=== PATIENT | male | born 1955 | race African-American/Black ===

== ENCOUNTER 2017-07-12 06:14 | Inpatient (IN) | payer MEDICAID, OTHER ==
[2017-07-12] MEDS ORDERED: HYDROMORPHONE HCL INJ/PF 2 MG/ML AMPULE IV ONE (06:31)
--- NOTE | 2017-07-12 06:31 | ER Document Report ---
ED General - General Stated Complaint: DIZZINESS,ABDOMINAL PAIN Notes: 61-year-old male with a history of recurrent pancreatitis presents with 2 days of upper abdominal pain nausea vomiting similar to past pancreatitis, moderately severe, slightly relieved with Zofran from EMS. No bowel movements for "I do not have a long talk." Denies distention. Passing gas. Feels feverish and feels all over body cramping. It is not ripping or tearing does not radiate to back. No chest pain or shortness of breath. TRAVEL OUTSIDE OF THE [place] IN LAST 30 DAYS: No - Related Data Allergies/Adverse Reactions: coffee (Coffea arabica) [Coffee] Allergy (Verified 10/11/14 19:19) Iodinated Contrast- Oral and IV Dye [IV Dye, Iodine Containing] Allergy ( Verified 12/25/14 13:52) iodine [Iodine] Allergy (Verified 10/11/14 19:19) Shellfish * [Shellfish] Allergy (Verified 10/11/14 19:19) Past Medical History - Social History Smoking Status: Current Every Day Smoker Cigarette use (# per day): Yes Smoking Education Provided: Yes - 5 minutes of tobacco cessation counseling was provided. Patient is not mot Family History: Arthritis, CAD - Sister, DM, Hyperlipidemia, Hypertension - Past Medical History Cardiac Medical History: Reports: Hx Coronary Artery Disease, Hx Heart Attack, Hx Hypercholesterolemia, Hx Hypertension Pulmonary Medical History: Reports: Hx COPD Neurological Medical History: Reports: Hx Cerebrovascular Accident. Denies: Hx Seizures Endocrine Medical History: Reports: Hx Diabetes Mellitus Type 1, Hx Diabetes Mellitus Type 2 GI Medical History: Reports: Hx Gastroesophageal Reflux Disease, Hx Hepatitis Musculoskeltal Medical History: Reports Hx Arthritis Psychiatric Medical History: Reports: Hx Anxiety, Hx Bipolar Disorder, Hx Depression Infectious Medical History: Reports: Hx Hepatitis, Hx HIV Past Surgical History: Reports: Hx Abdominal Surgery, Hx Cholecystectomy - Immunizations Immunizations up to date: No Hx Diphtheria, Pertussis, Tetanus Vaccination: Yes Hx Pneumococcal Vaccination: 08/08/12 Review of Systems - Review of Systems Notes: REVIEW OF SYSTEMS GEN: Toes. Weakness. ENT: Denies sore throat, nasal discharge, ear pain EYES: Denies blurry vision, eye pain, discharge CV: Denies chest pain, palpitations, edema RESP: Denies cough, shortness of breath, wheezing GI: Abdominal pain nausea vomiting, decreased bowel movements MSK: Denies joint pain/swelling, edema, SKIN: Denies rash, skin lesions LYMPH: Denies swollen glands/lymph nodes NEURO: Denies headache, focal weakness or numbness, dizziness PSYCH: Denies depression, suicidal or homicidal ideation PHYSICAL EXAMINATION General: No acute distress, well-nourished Head: Atraumatic, normocephalic ENT: Mouth normal, oropharynx moist, no exudates or tonsillar enlargement Eyes: Conjunctiva normal, pupils equal, lids normal Neck: No JVD, supple, no guarding CVS: Normal rate, regular rhythm, no murmurs Resp: No resp distress, equal and normal breath sounds bilaterally GI: Nondistended, soft, no epigastric tenderness to palpation, no rebound or guarding. Cholecystectomy scars. Ext: No deformities, no edema, normal range of motion in upper and lower ext Back: No CVA or midline TTP Skin: No rash, warm Lymphatic: No lymphadeopathy noted Neuro: Awake, alert. Face symmetric. GCS 15. Physical Exam - Vital signs Vitals: Resp 25 H 07/12/17 06:36 Course - Re-evaluation Re-evalutation: 07/12/17 06:32 Patient presents with upper abdominal pain and vomiting similar to prior pancreatitis episodes. Differential includes recurrent pancreatitis, acute flare of chronic abdominal pain, aortic aneurysm, doubt dissection. Also obstruction is on the list. Patient has some mild hypotension likely from dehydration. Bedside ultrasound unable to visualize aorta but no free fluid noted in the abdomen. Plan: Dilaudid fluids labs and CT. 07/12/17 07:33 Pt reassessed, got dilaudid and fluids. BP high 80s, likely dehydration but will cont fluids and will image but manager multimedia't have IV contrast. 07/12/17 08:52 Getting second liter. Requesting pain meds. CT Noncon does not show acute cause of pain. Lipase and chemistry still pending. We will give an additional liter of fluid to resuscitate. 07/12/17 09:10 Pressure improving. Lipase negative the patient has acute kidney injury with a baseline creatinine of less than 1 now close to 3. Potassium is upper limit of normal at 5 but does not require treatment. Admitted, accepted by Dr. Moseley. - Vital Signs Vital signs: Temp Pulse Resp BP Pulse Ox 98.6 F 120 H 18 97/63 L 96 07/12/17 06:53 07/12/17 06:53 07/12/17 07:00 07/12/17 06:53 07/12/17 07:00 - Laboratory Result Diagrams: 07/12/17 06:44 07/12/17 08:21 Laboratory results interpreted by me: 07/12/17 07/12/17 06:44 08:21 WBC 11.6 H MCV 77 L MCH 25.6 L RDW 19.1 H Plt Count 531 H Absolute Neutrophils 8.4 H Chloride 86 L Carbon Dioxide 36 H BUN 41 H Creatinine 3.75 H Est GFR ( Amer) 20 L Est GFR (Non-Af Amer) 16 L - Diagnostic Test Radiology reviewed: Image reviewed, Reports reviewed - EKG Interpretation by Me EKG shows normal: Sinus rhythm Rate: Normal Rhythm: NSR When compared to previous EKG there are: No significant change - borderline long QT Critical Care Note - Critical Care Note Total time excluding time spent on procedures (mins): 35 Comments: The above patient is critically ill. Not including procedures, but including direct re-evaluations, speaking with patient and/or consultants, interpreting results, and documenting, I spent the total amount of minute listed listed above on critical care time Discharge - Discharge Clinical Impression: Acute kidney failure Qualifiers: Acute renal failure type: unspecified Qualified Code(s): N17.9 - Acute kidney failure, unspecified Condition: Fair Disposition: ADMITTED INPATIENT Admitting Provider: Hospitalist
[2017-07-12] MEDS ORDERED: HYDROMORPHONE HCL INJ/PF 2 MG/ML AMPULE ONE (06:32)
[2017-07-12] MEDS ORDERED: ONDANSETRON HCL INJ/PF 4 MG/2 ML SDV ONE (06:44)
[2017-07-12] MEDS ORDERED: ONDANSETRON HCL INJ/PF 4 MG/2 ML SDV IV ONE (06:48)
[2017-07-12] MEDS ORDERED: NORMAL SALINE 1000 ML 1,000 ML IV PRN (06:48)
[2017-07-12 06:55] LABS: ABSOLUTE LYMPHOCYTES (AUTO) 2.1 10^3/uL (0.5-4.7); ABSOLUTE NEUT (AUTO) 8.4 10^3/uL (1.7-8.2); BASOPHILS % (AUTO) 0.3 % (0-2); EOSINOPHILS % (AUTO) 0.1 % (0-6); HEMATOCRIT 40.6 % (37.9-51.0); HEMOGLOBIN 13.5 g/dL (13.5-17.0); HGB HCT DIFFERENCE -0.1; LYMPHOCYTES % (AUTO) 18.2 % (13-45); MEAN CORPUSCULAR HEMOGLOBIN 25.6 pg (27.0-33.4); MEAN CORPUSCULAR HGB CONC 33.4 g/dL (32.0-36.0); MEAN CORPUSCULAR VOLUME 77 fl (80-97); MONOCYTES % (AUTO) 8.6 % (3-13); RED BLOOD COUNT 5.29 10^6/uL (4.35-5.55); RED CELL DISTRIBUTION WIDTH 19.1 % (11.5-14.0); SEGMENTED NEUTROPHILS % (AUTO) 72.8 % (42-78); WHITE BLOOD COUNT 11.6 10^3/uL (4.0-10.5)
[2017-07-12] MEDS ORDERED: NORMAL SALINE 1000 ML 1,000 ML IV ONE (07:33)
--- NOTE | 2017-07-12 07:44 | RADIOLOGY REPORT (SQ) ---
EXAM DESCRIPTION: CHEST SINGLE VIEW CLINICAL HISTORY: 61 years, Male, dizzy hypotensive t/o pna COMPARISON: 10/11/2014. CT, abdomen pelvis May 10, 2015, report only. NUMBER OF VIEWS: One view. Two images. TECHNIQUE: AP portable upright. LIMITATIONS: None. FINDINGS: Moderate-large hiatal hernia, adequate lung volumes, clear parenchyma, atherosclerosis, normal cardiac silhouette size, and mild osteoarthritis. IMPRESSION: No acute cardiopulmonary findings. Moderate hiatal hernia. 2011 [employer]- All Rights Reserved
[2017-07-12] MEDS ORDERED: DIPHENHYDRAMINE HCL 25 MG CAPSULE PO ONE (08:10)
--- NOTE | 2017-07-12 08:23 | RADIOLOGY REPORT (SQ) ---
EXAM DESCRIPTION: CT ABD/PELVIS NO ORAL OR IV COMPLETED DATE/TIME: 07/12/2017 8:00 am REASON FOR STUDY: abd pn, contrast allergy COMPARISON: 05/10/2015. TECHNIQUE: CT scan of the abdomen and pelvis performed without intravenous or oral contrast. Images reviewed with lung, soft tissue, and bone windows. Reconstructed coronal and sagittal MPR images revi ewed. All images stored on PACS. All CT scanners at this facility use dose modulation, iterative reconstruction, and/or weight based d osing when appropriate to reduce radiation dose to as low as reasonably achievable (ALARA). [facility]: Dose Right [facility]: CareDose [facility]: Dose Right [facility]: Teradose 4D [facility]: [employer] RADIATION DOSE: mGy. LIMITATIONS: None. FINDINGS: LOWER CHEST: No significant findings. No nodules or infiltrates. NON-CONTRASTED LIVER, SPLEEN, ADRENALS: Evaluation limited by lack of IV contrast. No identified sign ificant masses. PANCREAS: No masses. No peripancreatic inflammatory changes. GALLBLADDER: Surgically absent. RIGHT KIDNEY AND URETER: No suspicious masses. Assessment limited by lack of IV contrast. No signif icant calcifications. No hydronephrosis or hydroureter. LEFT KIDNEY AND URETER: No suspicious masses. Assessment limited by lack of IV contrast. No signifi cant calcifications. No hydronephrosis or hydroureter. AORTA AND RETROPERITONEUM: No aneurysm. No retroperitoneal masses or adenopathy. BOWEL AND PERITONEAL CAVITY: Large hiatal hernia. Thickening of the wall of the stomach near the fun dus. No obvious masses or inflammatory changes. No free fluid. APPENDIX: Normal. PELVIS, BLADDER, AND ABDOMINAL WALL:No abnormal masses. No free fluid. Bladder normal. BONES: No significant findings. OTHER: No other significant finding. IMPRESSION: 1. LARGE HIATAL HERNIA. THICKENING OF THE WALL OF THE STOMACH NEAR THE FUNDUS, PROBABLY RELATED TO R ELATIVE NONDISTENTION. MUCOSAL MASS CANNOT BE EXCLUDED. 2. NO OTHER SIGNIFICANT OR ACUTE PROCESS IN THE ABDOMEN OR PELVIS. COMMENT: Quality ID # [id number]: Final reports with documentation of one or more dose reduction techniques (e.g., Automated exposure control, adjustment of the mA and/or kV according to patient size, use of iterative reconstruction technique) TECHNICAL DOCUMENTATION: JOB ID: [id number]- All Rights Reserved
[2017-07-12] MEDS ORDERED: FENTANYL CITRATE INJ/PF 100 MCG/2 ML AMPUL IV ONE (08:42)
[2017-07-12 08:50] LABS: ANION GAP 18 (5-19); BLOOD UREA NITROGEN 41 mg/dL (7-20); CALCIUM 8.9 mg/dL (8.4-10.2); CARBON DIOXIDE 36 mmol/L (22-30); CHLORIDE 86 mmol/L (98-107); CREATININE RESULT 3.75 mg/dL (0.52-1.25); GLUCOSE 78 mg/dL (75-110); LIPASE 91.7 U/L (23-300); SODIUM 139.5 mmol/L (137-145)
[2017-07-12 09:42] LABS: APPEARANCE,URINE SLIGHTLY-CLOUDY; BILIRUBIN,URINE NEGATIVE (NEGATIVE); GLUCOSE, URINE 50 mg/dL (NEGATIVE); KETONES,URINE TRACE mg/dL (NEGATIVE); LEUKOCYTE ESTERASE,URINE SMALL (NEGATIVE); NITRITE,URINE NEGATIVE (NEGATIVE); PROTEIN,URINE 100 mg/dL (NEGATIVE); URINE SPECIFIC GRAVITY 1.017
[2017-07-12 09:43] LABS: ALANINE AMINOTRANSFERASE 21 U/L (21-72); ALBUMIN 4.4 g/dL (3.5-5.0); ALKALINE PHOSPHATASE 176 U/L (38-126); ASPARTATE AMINO TRANSFERASE 33 U/L (17-59); BILIRUBIN,DIRECT 0.6 mg/dL (0.0-0.4); BILIRUBIN,TOTAL 0.9 mg/dL (0.2-1.3); TOTAL PROTEIN 8.7 g/dL (6.3-8.2)
[2017-07-12 09:47] LABS: BACTERIA,URINE 1+ /HPF; HYALINE CASTS, URINE TOO NUMEROUS TO CNT /LPF
[2017-07-12] MEDS ORDERED: ONDANSETRON HCL INJ/PF 4 MG/2 ML SDV IV PRN (10:04)
[2017-07-12] MEDS ORDERED: ACETAMINOPHEN 325 MG TABLET PO PRN (10:04)
[2017-07-12 10:42] LABS: AMYLASE 149 U/L (30-110)
[2017-07-12] MEDS ORDERED: POTASSIUM CHLORIDE 10 MEQ TABLET.SA PO SCH (11:00)
[2017-07-12 11:18] LABS: THYROID STIMULATING HORMONE 1.45 uIU/mL (0.47-4.68)
[2017-07-12] MEDS ORDERED: DOCUSATE SODIUM 100 MG CAPSULE PO ONE (11:30)
--- NOTE | 2017-07-12 11:58 | EKG REPORT ---
SEVERITY:- BORDERLINE ECG - SINUS TACHYCARDIA BORDERLINE RIGHT AXIS DEVIATION BORDERLINE PROLONGED QT INTERVAL : Confirmed by: Jena Munoz 12-Jul-2017 11:57:44
[2017-07-12 12:11] LABS: ALANINE AMINOTRANSFERASE 28 U/L (21-72); ALBUMIN 4.3 g/dL (3.5-5.0); ALKALINE PHOSPHATASE 147 U/L (38-126); ASPARTATE AMINO TRANSFERASE 36 U/L (17-59); BILIRUBIN,DIRECT 0.6 mg/dL (0.0-0.4); BILIRUBIN,TOTAL 0.7 mg/dL (0.2-1.3); TOTAL PROTEIN 8.4 g/dL (6.3-8.2)
--- NOTE | 2017-07-12 13:46 | PDOC CONSULTATION ---
Consultation Consult Date: 07/12/17 Attending physician:: CATHERINE MAR Consult reason:: abnormal CT scan, epigastric pain. history of pancreatitis History of Present Illness Admission Date/PCP: 07/12/17 10:28 History of Present Illness: OLGA JONES is a 61 year old male Asked to see this patient by the Hospitalist physician patient admitted for epigastric pain states that has had a history of pancreatitis patient had CT scan, it was noted that he had an abnormal thickening of the stomach GI is requested to clarify the finding patient will need EGD to be done there is no current nausea or vomiting patient does not have significant LFT abnormalities suggesting gallstone pancreatitis. there is no melena patient has been having difficult time with constipation, he does not have any peritoneal signs Past Medical History Cardiac Medical History: Reports: Coronary Artery Disease, Myocardial Infarction , Hyperlipidema, Hypertension Pulmonary Medical History: Reports: Chronic Obstructive Pulmonary Disease (COPD) Neurological Medical History: Denies: Seizures Endocrine Medical History: Reports: Diabetes Mellitus Type 1, Diabetes Mellitus Type 2 GI Medical History: Reports: Gastroesophageal Reflux Disease, Hepatitis Musculoskeltal Medical History: Reports: Arthritis Psychiatric Medical History: Reports: Bipolar Disorder, Depression Infectious Medical History: Reports: HIV Past Surgical History Past Surgical History: Reports: Cholecystectomy Social History Smoking Status: Current Every Day Smoker Frequency of Alcohol Use: Heavy Hx Recreational Drug Use: Yes Drugs: Cocaine, Marijuana, Other Hx Prescription Drug Abuse: Yes Family History Family History: Arthritis, CAD - Sister, DM, Hyperlipidemia, Hypertension Parental Family History Reviewed: Yes Children Family History Reviewed: Unknown Sibling(s) Family History Reviewed.: Unknown Medication/Allergy Allergies/Adverse Reactions: coffee (Coffea arabica) [Coffee] Allergy (Verified 10/11/14 19:19) Iodinated Contrast- Oral and IV Dye [IV Dye, Iodine Containing] Allergy ( Verified 12/25/14 13:52) iodine [Iodine] Allergy (Verified 10/11/14 19:19) Shellfish * [Shellfish] Allergy (Verified 10/11/14 19:19) Review of Systems Constitutional: ABSENT: fever(s), headache(s), night sweats, weakness Eyes: ABSENT: visual disturbances Ears: ABSENT: hearing changes Nose, Mouth, and Throat: ABSENT: mouth pain, sore throat Cardiovascular: ABSENT: chest pain, edema, orthropnea Respiratory: ABSENT: dyspnea, hemoptysis Gastrointestinal: ABSENT: diarrhea, hematemesis, hematochezia Genitourinary: ABSENT: dysuria, hematuria Musculoskeletal: ABSENT: deformity, joint swelling Integumentary: ABSENT: lesions, pruritus Neurological: ABSENT: syncope, tingling, tremor(s), vertigo Endocrine: ABSENT: polydipsia, polyphagia, polyuria Hematologic/Lymphatic: ABSENT: easy bruising Physical Exam Vital Signs: Temp Pulse Resp BP Pulse Ox 98.6 F 120 H 10 L 120/71 100 07/12/17 06:53 07/12/17 06:53 07/12/17 13:30 07/12/17 13:30 07/12/17 13:30 Intake & Output 07/11/17 07/12/17 07/13/17 06:59 06:59 06:59 Weight 63.503 kg General appearance: PRESENT: no acute distress, well-developed, well-nourished Head exam: PRESENT: atraumatic, normocephalic Eye exam: PRESENT: EOMI, PERRLA. ABSENT: nystagmus, periorbital swelling, scleral icterus Mouth exam: PRESENT: moist, neck supple Throat exam: ABSENT: tonsillar exudate, tonsillogmegaly Neck exam: ABSENT: meningismus, tenderness, thyromegaly Respiratory exam: PRESENT: symmetrical, unlabored. ABSENT: tachypnea, wheezes Cardiovascular exam: PRESENT: RRR, +S1, +S2 GI/Abdominal exam: PRESENT: soft. ABSENT: rebound, rigid, tenderness Extremities exam: PRESENT: full ROM. ABSENT: calf tenderness, clubbing Neurological exam: PRESENT: alert, altered, oriented to time, oriented to situation, CN II-XII grossly intact Skin exam: PRESENT: normal color. ABSENT: mottled, pallor, urticaria, vesicles Results Laboratory Results: 07/12/17 07/12/17 07/12/17 11:38 11:38 11:38 Lactic Acid Cancelled 2.6 H Total Bilirubin 0.7 AST 36 ALT 28 Alkaline Phosphatase 147 H Total Protein 8.4 H Albumin 4.3 Impressions: Chest X-Ray 07/12/17 06:22 IMPRESSION: No acute cardiopulmonary findings. Moderate hiatal hernia. 2010 [employer]- All Rights Reserved Abdomen/Pelvis CT 07/12/17 07:34 IMPRESSION: 1. LARGE HIATAL HERNIA. THICKENING OF THE WALL OF THE STOMACH NEAR THE FUNDUS, PROBABLY RELATED TO RELATIVE NONDISTENTION. MUCOSAL MASS CANNOT BE EXCLUDED. 2. NO OTHER SIGNIFICANT OR ACUTE PROCESS IN THE ABDOMEN OR PELVIS. Assessment & Plan - Diagnosis (1) Abnormal CT scan Plan: thickening noted in the wall of the stomach will need EGD Risks, benefits and alternatives are discussed with the patient in detail further recommendations to follow (2) Abdominal pain Plan: could be due to peptic ulcer disease vs possible pancreatitis patient will have EGD to exclude other causes (3) Pancreatitis Plan: can keep NPO for now and have pain control if having symptoms of diarrhea, then patient may benefit from pancreatic supplementation - Time Time Spent: 50 to 70 Minutes
[2017-07-12] MEDS ORDERED: (PENDING PHARMACY ID) (Lipase/Protease/Amylase [Creon Dr 24,000 Units Capsule] 1 CAP) PO SCH (14:00)
[2017-07-12] MEDS: GABAPENTIN 400 MG CAPSULE PO SCH ×2 (14:08→22:45)
[2017-07-12] MEDS: LANSOPRAZOLE 30 MG TAB.RAP.DR PO SCH (16:03)
[2017-07-12] MEDS: NORMAL SALINE 1000 ML 1,000 ML IV PRN (16:04)
[2017-07-12] MEDS: DOCUSATE SODIUM 100 MG CAPSULE PO SCH (18:38)
--- NOTE | 2017-07-12 19:00 | PDOC H&P ---
History of Present Illness Admission Date/PCP: 07/12/17 10:28 Patient complains of: Nausea vomiting and abdominal pain History of Present Illness: The patient is a pleasant 61-year-old -[place] male with a history of recurrent chronic pancreatitis. In addition he has known coronary artery disease, COPD, history of a CVA a and reportedly has hepatitis C and is undergone treatment for this. He has underlying bipolar disorder as well. Patient presented to the emergency room with a 3 day history of nausea vomiting and abdominal pain. He states he became quite dehydrated and dizzy. He also has had increased shortness of breath and burning in his chest. He states that he has been losing weight for the past several months and reports that he has lost approximately 30 pounds and has been having night sweats at night. Past Medical History Cardiac Medical History: Reports: Coronary Artery Disease, Myocardial Infarction , Hyperlipidema, Hypertension Pulmonary Medical History: Reports: Chronic Obstructive Pulmonary Disease (COPD) Neurological Medical History: Reports: Ischemic CVA Denies: Seizures Malignancy Medical History: Reports: None GI Medical History: Reports: Gastroesophageal Reflux Disease, Hepatitis, Other - He states he has a history of hepatitis C Musculoskeltal Medical History: Reports: Arthritis Psychiatric Medical History: Reports: Bipolar Disorder, Depression Traumatic Medical History: Reports: None Hematology: Reports: None Infectious Medical History: Reports: Hepatitis C Past Surgical History Past Surgical History: Reports: Cholecystectomy Social History Information Source: Patient Smoking Status: Current Every Day Smoker Cigarettes Packs Per Day: 1 Number of Years Smokin Frequency of Alcohol Use: Occasional Hx Recreational Drug Use: Yes Drugs: Cocaine, Heroin, Marijuana, Other Hx Prescription Drug Abuse: Yes Family History Family History: Arthritis, CAD - Sister, DM, Hyperlipidemia, Hypertension Parental Family History Reviewed: Yes Children Family History Reviewed: Yes Sibling(s) Family History Reviewed.: Yes Medication/Allergy Home Medications: Amitriptyline HCl [Elavil 50 mg Tablet] 50 mg PO DAILY 07/12/17 Gabapentin [Neurontin 400 mg Capsule] 800 mg PO Q8 07/12/17 Lactobacillus Acidophilus [Acidophilus] 1 tab PO Q12 07/12/17 Lipase/Protease/Amylase [Elisabeth Dr 24,000 Units Capsule] 1 cap PO Q8 07/12/17 Lisinopril [Zestril] 20 mg PO DAILY 07/12/17 Magnesium Oxide [Mag-Ox 400 mg Tablet] 400 mg PO DAILY 07/12/17 Omeprazole 20 mg PO Q12 07/12/17 Potassium Chloride [Klor-Con 10 Meq Tablet.sa] 20 meq PO Q12 07/12/17 Quetiapine Fumarate [Seroquel] 200 mg PO QHS 07/12/17 Sildenafil Citrate [Viagra] 100 mg PO ASDIR PRN 07/12/17 Thiamine HCl [Thiamine 100 mg Tablet] 100 mg PO DAILY 07/12/17 Allergies/Adverse Reactions: coffee (Coffea arabica) [Coffee] Allergy (Verified 10/11/14 19:19) Iodinated Contrast- Oral and IV Dye [IV Dye, Iodine Containing] Allergy ( Verified 12/25/14 13:52) iodine [Iodine] Allergy (Verified 10/11/14 19:19) Shellfish * [Shellfish] Allergy (Verified 10/11/14 19:19) Review of Systems Constitutional: PRESENT: anorexia, night sweats, weight loss Cardiovascular: PRESENT: chest pain Respiratory: PRESENT: cough, dyspnea, sputum Gastrointestinal: PRESENT: abdominal pain, heartburn, nausea, vomiting. ABSENT : hematemesis, hematochezia, melena Musculoskeletal: PRESENT: back pain Integumentary: ABSENT: rash, wounds Neurological: ABSENT: abnormal gait, abnormal speech, confusion, dizziness, focal weakness, syncope Psychiatric: ABSENT: anxiety, depression, homidical ideation, suicidal ideation Endocrine: ABSENT: cold intolerance, heat intolerance, polydipsia, polyuria Hematologic/Lymphatic: ABSENT: easy bleeding, easy bruising Physical Exam Vital Signs: Temp Pulse Resp BP Pulse Ox 98.6 F 120 H 10 L 120/71 100 07/12/17 06:53 07/12/17 06:53 07/12/17 13:30 07/12/17 13:30 07/12/17 13:30 Intake & Output 07/11/17 07/12/17 07/13/17 06:59 06:59 06:59 Weight 63.503 kg General appearance: PRESENT: no acute distress, disheveled, thin Head exam: PRESENT: atraumatic, normocephalic Eye exam: PRESENT: conjunctiva pink, EOMI, PERRLA. ABSENT: scleral icterus Ear exam: PRESENT: normal external ear exam Mouth exam: PRESENT: moist, tongue midline Neck exam: ABSENT: carotid bruit, JVD, lymphadenopathy, thyromegaly Respiratory exam: PRESENT: decreased breath sounds, rhonchi. ABSENT: accessory muscle use, chest wall tenderness Cardiovascular exam: PRESENT: RRR. ABSENT: diastolic murmur, rubs, systolic murmur GI/Abdominal exam: PRESENT: firm, hypoactive bowel sounds, tenderness Rectal exam: PRESENT: deferred Extremities exam: PRESENT: full ROM. ABSENT: calf tenderness, clubbing, pedal edema Neurological exam: PRESENT: alert, awake, oriented to person, oriented to place , oriented to time, oriented to situation, CN II-XII grossly intact. ABSENT: motor sensory deficit Psychiatric exam: PRESENT: appropriate affect, normal mood. ABSENT: homicidal ideation, suicidal ideation Skin exam: PRESENT: dry, intact, warm. ABSENT: cyanosis, rash Results Laboratory Results: 07/12/17 07/12/17 07/12/17 11:38 11:38 11:38 Lactic Acid Cancelled 2.6 H Total Bilirubin 0.7 AST 36 ALT 28 Alkaline Phosphatase 147 H Total Protein 8.4 H Albumin 4.3 07/12/17 16:15 Lactic Acid 1.4 Total Bilirubin AST ALT Alkaline Phosphatase Total Protein Albumin Impressions: Chest X-Ray 07/12/17 06:22 IMPRESSION: No acute cardiopulmonary findings. Moderate hiatal hernia. 2010 [employer]- All Rights Reserved Abdomen/Pelvis CT 07/12/17 07:34 IMPRESSION: 1. LARGE HIATAL HERNIA. THICKENING OF THE WALL OF THE STOMACH NEAR THE FUNDUS, PROBABLY RELATED TO RELATIVE NONDISTENTION. MUCOSAL MASS CANNOT BE EXCLUDED. 2. NO OTHER SIGNIFICANT OR ACUTE PROCESS IN THE ABDOMEN OR PELVIS. Assessment & Plan - Diagnosis (1) Acute kidney injury Plan: At this point I suspect this is secondary to dehydration from his nausea and vomiting. Patient has been started on IV fluids and we will continue them overnight. Chemistry panel will be checked in the morning. (2) Abdominal pain Plan: With associated nausea vomiting and diarrhea. I am going to consult the GI service. There was some thickening of the stomach noted on his CT scan. No evidence for acute pancreatitis. His lipase level is normal. Pancreas was not inflamed on his scan. We will await further recommendations from the GI service. (3) Metabolic alkalosis Plan: Of undetermined significance at this point. He will have a chemistry panel drawn in the morning (4) Chronic pancreatitis Plan: I do not think he is having an acute attack of pancreatitis at this point. We will get GI to see the patient. (5) SIRS (systemic inflammatory response syndrome) Plan: He does not appear to have an underlying infection. We will check labs in the morning and continue to monitor him closely overnight. (6) COPD (chronic obstructive pulmonary disease) Plan: No evidence of exacerbation (7) CAD (coronary artery disease) Plan: Continue his home regimen of medications. [facility] (8) Hypertension Plan: We will just continue to monitor. (9) History of hepatitis C Plan: The patient states that he has a history of hepatitis C which was treated. I am unsure how accurate this is. GI is following and we will let them decide on whether hepatitis panel is needed. (10) History of CVA (cerebrovascular accident) Plan: The patient reports that he has a history of a CVA. Currently not on antiplatelet therapy likely due to his GI issues. (11) GERD (gastroesophageal reflux disease) Plan: The patient will be started on Prevacid twice daily - Time Time Spent: 50 to 70 Minutes - Inpatient Certification Based on my medical assessment, after consideration of the patient's comorbidities, presenting symptoms, or acuity I expect that the services needed warrant INPATIENT care.: Yes I certify that my determination is in accordance with my understanding of Medicare's requirements for reasonable and necessary INPATIENT services [42 CFR 412.3e].: Yes Medical Necessity: Need For IV Fluids, Other - Inpatient hospitalization is necessary. I expect this patient's hospitalization will last for greater than 2 midnights. He has acute renal failure requiring parenteral fluids. He has abdominal pain and needs further evaluation from the GI service. He has multiple comorbidities and I expect that he will need at least 2 midnights in the hospital.
[2017-07-12] MEDS ORDERED: (PENDING PHARMACY ID) (Lactobacillus Acidophilus [Acidophilus] 1 TAB) PO SCH (22:00)
[2017-07-12] MEDS ORDERED: (PENDING PHARMACY ID) (Quetiapine Fumarate [Seroquel] 200 MG) PO SCH (22:00)
[2017-07-12] MEDS: QUETIAPINE FUMARATE 100 MG TABLET PO SCH (22:46)
[2017-07-12] MEDS: LACTOBACILLUS ACIDOPHILUS 250 MG TAB PO SCH (22:47)
[2017-07-13] MEDS: NORMAL SALINE 1000 ML 1,000 ML IV PRN ×2 (03:48→19:44)
[2017-07-13] MEDS: LANSOPRAZOLE 30 MG TAB.RAP.DR PO SCH ×3 (05:55→16:46)
[2017-07-13] MEDS: GABAPENTIN 400 MG CAPSULE PO SCH ×3 (05:55→21:16)
[2017-07-13 08:15] LABS: ABSOLUTE LYMPHOCYTES (AUTO) 1.6 10^3/uL (0.5-4.7); ABSOLUTE MONOCYTES (AUTO) 0.6 10^3/uL (0.1-1.4); ABSOLUTE NEUT (AUTO) 4.2 10^3/uL (1.7-8.2); BASOPHILS % (AUTO) 0.2 % (0-2); EOSINOPHILS % (AUTO) 0.1 % (0-6); HEMATOCRIT 30.4 % (37.9-51.0); HGB HCT DIFFERENCE -0.4; MEAN CORPUSCULAR HEMOGLOBIN 25.6 pg (27.0-33.4); MEAN CORPUSCULAR HGB CONC 33.1 g/dL (32.0-36.0); MEAN CORPUSCULAR VOLUME 78 fl (80-97); MONOCYTES % (AUTO) 9.4 % (3-13); RED BLOOD COUNT 3.92 10^6/uL (4.35-5.55); RED CELL DISTRIBUTION WIDTH 18.5 % (11.5-14.0); SEGMENTED NEUTROPHILS % (AUTO) 65.3 % (42-78); WHITE BLOOD COUNT 6.5 10^3/uL (4.0-10.5)
[2017-07-13 08:27] LABS: ANION GAP 14 (5-19); BLOOD UREA NITROGEN 34 mg/dL (7-20); CALCIUM 8.3 mg/dL (8.4-10.2); CARBON DIOXIDE 29 mmol/L (22-30); CHLORIDE 93 mmol/L (98-107); CHOLESTEROL 157.51 mg/dL (0-200); CREATININE RESULT 2.45 mg/dL (0.52-1.25); Direct HDL 32 mg/dL (>40); GLUCOSE 65 mg/dL (75-110); MAGNESIUM 2.1 mg/dL (1.6-2.3); PHOSPHORUS 3.2 mg/dL (2.5-4.5); POTASSIUM 4.1 mmol/L (3.6-5.0); SODIUM 135.6 mmol/L (137-145); TRIGLYCERIDES 122 mg/dL (<150)
[2017-07-13] MEDS ORDERED: MIDAZOLAM 2 MG/2 ML INJ ONE (08:37)
[2017-07-13] MEDS ORDERED: ONDANSETRON HCL INJ/PF 4 MG/2 ML SDV ONE (08:37)
[2017-07-13] MEDS ORDERED: PROPOFOL INJ 200 MG/20 ML VIAL IV ONE (08:37)
[2017-07-13 08:38] LABS: DIRECT LDL 97 mg/dL (<100)
[2017-07-13] MEDS ORDERED: FENTANYL CITRATE INJ/PF 100 MCG/2 ML AMPUL IV PRN ×3 (09:19)
[2017-07-13] MEDS ORDERED: DIPHENHYDRAMINE HCL 50 MG/ML VIAL IV PRN (09:19)
[2017-07-13] MEDS ORDERED: QUETIAPINE FUMARATE 100 MG PO SCH (10:00)
[2017-07-13] MEDS ORDERED: MAGNESIUM PO SCH (10:00)
[2017-07-13] MEDS ORDERED: THIAMINE HCL 100 MG TABLET PO SCH (10:00)
[2017-07-13] MEDS ORDERED: MAGNESIUM OXIDE PO SCH (10:00)
[2017-07-13] MEDS: MAGNESIUM OXIDE 400 MG TABLET PO SCH (11:49)
[2017-07-13] MEDS: LACTOBACILLUS ACIDOPHILUS 250 MG TAB PO SCH ×2 (11:49→21:16)
[2017-07-13] MEDS: ENOXAPARIN SODIUM INJ 30 MG/0.3 ML DISP.SYRIN SUBCUT SCH (11:49)
[2017-07-13] MEDS: DOCUSATE SODIUM 100 MG CAPSULE PO SCH ×2 (11:50→19:15)
[2017-07-13] MEDS: AMITRIPTYLINE HCL 50 MG TABLET PO SCH (11:50)
[2017-07-13] MEDS: LIPASE/PROTEASE/AMYLASE 1 CAP CAPSULE.DR PO SCH ×6 (12:01→16:47)
[2017-07-13] MEDS: THIAMINE HCL 100 MG TABLET PO SCH (12:01)
--- NOTE | 2017-07-13 13:05 | Operative Report ---
Operative Report DATE OF SURGERY: 07/13/17 Operative Report: The risks benefits and alternatives of the procedure explained to the patient in detail and informed consent is obtained.A GIF Olympus video scope was inserted into the patient's mouth and hypopharynx, the esophagus is identified intubated and insufflated, the scope was then advanced through the esophagus stomach and duodenum, retroflexion maneuver is done ,the esophagus stomach and first and second portions of the duodenum examined PREOPERATIVE DIAGNOSIS: Epigastric pain, abnormal CT scan of the stomach showing thickening in the region of the fundus. POSTOPERATIVE DIAGNOSIS: Esophageal ulcers at the distal esophagus, there is also abnormal tissue biopsies obtained to rule out malignancy. Hiatal hernia. The area of thickening is noted in the stomach status post biopsy rule out malignancy OPERATION: EGD with biopsy SURGEON: CATHERINE MAR ANESTHESIA: LMAC TISSUE REMOVED OR ALTERED: As noted above. COMPLICATIONS: None. ESTIMATED BLOOD LOSS: None. INTRAOPERATIVE FINDINGS: As noted above. PROCEDURE: Patient tolerated the procedure well. No immediate postprocedure complications are noted. Patient discharged from PACU in stable condition. Resume regular diet as tolerated on the floor. Resume previous activity level. Follow-up as outpatient. Repeat EGD is indicated. We will wait on pathology.
[2017-07-13] MEDS ORDERED: PHENYLEPHRINE HCL INJ/PF 10 MG/1 ML SDV ONE (13:33)
[2017-07-13] MEDS ORDERED: METOPROLOL TARTRATE PF/INJ 5 MG/5 ML SDV IV ONE (15:30)
[2017-07-13] MEDS ORDERED: TRAMADOL HCL 50 MG TABLET PO PRN (17:36)
--- NOTE | 2017-07-13 17:43 | PDOC PROGRESS REPORT ---
Subjective Progress Note for:: 07/13/17 Subjective:: The patient is resting in his bed. He had an EGD performed today by the GI service. He was found to have gastritis and esophagitis as well as a small hiatal hernia. All of this was explained to the patient and his questions were answered. He states that he continues to have abdominal pain. He states it is the same type of pain he has when he has pancreatitis. He states overall he is feeling much better since he is coming to the hospital. He is having no further episodes of nausea or vomiting. No diarrhea. He has no chest pain or shortness of breath at this point. No urinary complaints Reason For Visit: ACUTE RENAL FAILURE Physical Exam Vital Signs: Temp Pulse Resp BP Pulse Ox 99.4 F 112 H 18 111/50 L 99 07/13/17 13:10 07/13/17 13:10 07/13/17 13:10 07/13/17 13:10 07/13/17 13:10 Intake & Output 07/12/17 07/13/17 07/14/17 06:59 06:59 06:59 Intake Total 1500 3762 Output Total 200 400 Balance 1300 3362 Weight 71.1 kg General appearance: PRESENT: no acute distress, disheveled, thin Head exam: PRESENT: atraumatic, normocephalic Respiratory exam: PRESENT: clear to auscultation belén. ABSENT: rales, rhonchi, wheezes Cardiovascular exam: PRESENT: RRR. ABSENT: diastolic murmur, rubs, systolic murmur GI/Abdominal exam: PRESENT: guarding, tenderness, other - He has mild tenderness with some guarding diffusely. Rectal exam: PRESENT: deferred Extremities exam: PRESENT: full ROM. ABSENT: calf tenderness, clubbing, pedal edema Neurological exam: PRESENT: alert, awake, oriented to person, oriented to place , oriented to time, oriented to situation, CN II-XII grossly intact. ABSENT: motor sensory deficit Psychiatric exam: PRESENT: other - Quite animated with pressured speech Focused psych exam: PRESENT: flight of ideas, pressured speech Skin exam: PRESENT: dry, intact, warm. ABSENT: cyanosis, rash Results Laboratory Results: 07/13/17 06:56 07/13/17 06:56 07/13/17 07/13/17 06:56 06:56 WBC 6.5 RBC 3.92 L Hgb 10.0 L D Hct 30.4 L MCV 78 L MCH 25.6 L MCHC 33.1 RDW 18.5 H Plt Count 314 Seg Neutrophils % 65.3 Lymphocytes % 25.0 Monocytes % 9.4 Eosinophils % 0.1 Basophils % 0.2 Absolute Neutrophils 4.2 Absolute Lymphocytes 1.6 Absolute Monocytes 0.6 Absolute Eosinophils 0.0 Absolute Basophils 0.0 Sodium 135.6 L Potassium 4.1 Chloride 93 L Carbon Dioxide 29 Anion Gap 14 BUN 34 H Creatinine 2.45 H Est GFR ( Amer) 32 L Est GFR (Non-Af Amer) 27 L Glucose 65 L Calcium 8.3 L Phosphorus 3.2 Magnesium 2.1 Triglycerides 122 Cholesterol 157.51 LDL Cholesterol Direct 97 VLDL Cholesterol 24.0 HDL Cholesterol 32 L Impressions: Chest X-Ray 07/12/17 06:22 IMPRESSION: No acute cardiopulmonary findings. Moderate hiatal hernia. 2010 [employer]- All Rights Reserved Abdomen/Pelvis CT 07/12/17 07:34 IMPRESSION: 1. LARGE HIATAL HERNIA. THICKENING OF THE WALL OF THE STOMACH NEAR THE FUNDUS, PROBABLY RELATED TO RELATIVE NONDISTENTION. MUCOSAL MASS CANNOT BE EXCLUDED. 2. NO OTHER SIGNIFICANT OR ACUTE PROCESS IN THE ABDOMEN OR PELVIS. Assessment & Plan - Diagnosis (1) Acute kidney injury Plan: Likely secondary to dehydration from nausea and vomiting. His creatinine is improved today. We will continue IV fluid hydration. (2) Abdominal pain Plan: Possibly secondary to his chronic pancreatitis. CT scan of the abdomen revealed a thickened stomach. He had an EGD today that did not reveal any acute abnormalities. His lipase level was normal. Amylase level was slightly elevated. He will continue IV fluids. He was requesting IV morphine for his pain. 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 I am going to give him some tramadol this afternoon. (3) Metabolic alkalosis Plan: Resolved (4) Chronic pancreatitis Plan: I do not think he is having an acute attack of pancreatitis at this point. He may be having some pain from his chronic pancreatitis.. (5) SIRS (systemic inflammatory response syndrome) Plan: He does not appear to have an underlying infection. We will check labs in the morning and continue to monitor him closely overnight. Overall he is stabilizing. (6) COPD (chronic obstructive pulmonary disease) Plan: No evidence of exacerbation (7) CAD (coronary artery disease) Plan: Continue his home regimen of medications. [facility] (8) Hypertension Plan: We will just continue to monitor. (9) History of hepatitis C Plan: The patient states that he has a history of hepatitis C which was treated. I am unsure how accurate this is. GI is following and we will let them decide on whether hepatitis panel is needed. (10) History of CVA (cerebrovascular accident) Plan: The patient reports that he has a history of a CVA. Currently not on antiplatelet therapy likely due to his GI issues. (11) GERD (gastroesophageal reflux disease) Plan: The patient will be started on Prevacid twice daily - Time Time Spent with patient: 25-34 minutes - Inpatient Certification Based on my medical assessment, after consideration of the patient's comorbidities, presenting symptoms, or acuity I expect that the services needed warrant INPATIENT care.: Yes I certify that my determination is in accordance with my understanding of Medicare's requirements for reasonable and necessary INPATIENT services [42 CFR 412.3e].: Yes Medical Necessity: Need For IV Fluids - Inpatient hospitalization remains necessary. Patient still has acute renal failure requiring parenteral fluids. Timing of disposition will be determined by his clinical course.
[2017-07-13] MEDS: QUETIAPINE FUMARATE 100 MG TABLET PO SCH (21:16)
[2017-07-14] MEDS: GABAPENTIN 400 MG CAPSULE PO SCH ×3 (05:21→21:17)
[2017-07-14] MEDS: NORMAL SALINE 1000 ML 1,000 ML IV PRN ×2 (05:22→11:06)
[2017-07-14 05:38] LABS: ABSOLUTE EOSINOPHILS # (AUTO) 0.1 10^3/uL (0.0-0.6); ABSOLUTE LYMPHOCYTES (AUTO) 1.6 10^3/uL (0.5-4.7); ABSOLUTE MONOCYTES (AUTO) 0.5 10^3/uL (0.1-1.4); ABSOLUTE NEUT (AUTO) 2.2 10^3/uL (1.7-8.2); BASOPHILS % (AUTO) 0.8 % (0-2); EOSINOPHILS % (AUTO) 1.8 % (0-6); HEMATOCRIT 32.2 % (37.9-51.0); HEMOGLOBIN 10.3 g/dL (13.5-17.0); HGB HCT DIFFERENCE -1.3; LYMPHOCYTES % (AUTO) 36.3 % (13-45); MEAN CORPUSCULAR HEMOGLOBIN 25.4 pg (27.0-33.4); MEAN CORPUSCULAR HGB CONC 32.1 g/dL (32.0-36.0); MEAN CORPUSCULAR VOLUME 79 fl (80-97); MONOCYTES % (AUTO) 10.6 % (3-13); RED BLOOD COUNT 4.07 10^6/uL (4.35-5.55); RED CELL DISTRIBUTION WIDTH 18.7 % (11.5-14.0); SEGMENTED NEUTROPHILS % (AUTO) 50.5 % (42-78); WHITE BLOOD COUNT 4.4 10^3/uL (4.0-10.5)
[2017-07-14 05:52] LABS: ANION GAP 11 (5-19); BLOOD UREA NITROGEN 22 mg/dL (7-20); CALCIUM 9.2 mg/dL (8.4-10.2); CARBON DIOXIDE 27 mmol/L (22-30); CHLORIDE 102 mmol/L (98-107); GLUCOSE 94 mg/dL (75-110); MAGNESIUM 2.1 mg/dL (1.6-2.3); PHOSPHORUS 2.8 mg/dL (2.5-4.5); POTASSIUM 4.1 mmol/L (3.6-5.0); SODIUM 140.1 mmol/L (137-145)
[2017-07-14] MEDS: LIPASE/PROTEASE/AMYLASE 1 CAP CAPSULE.DR PO SCH ×9 (08:24→16:05)
[2017-07-14] MEDS: MAGNESIUM OXIDE 400 MG TABLET PO SCH (11:05)
[2017-07-14] MEDS: ENOXAPARIN SODIUM INJ 30 MG/0.3 ML DISP.SYRIN SUBCUT SCH (11:05)
[2017-07-14] MEDS: AMITRIPTYLINE HCL 50 MG TABLET PO SCH (11:06)
[2017-07-14] MEDS: LACTOBACILLUS ACIDOPHILUS 250 MG TAB PO SCH ×2 (11:06→21:17)
[2017-07-14] MEDS: THIAMINE HCL 100 MG TABLET PO SCH (11:06)
[2017-07-14] MEDS: DOCUSATE SODIUM 100 MG CAPSULE PO SCH ×2 (11:06→17:18)
--- NOTE | 2017-07-14 12:04 | Physician Advisory Note ---
Physician Advisor ProgressNote .: Pursuant to the [facility], I have reviewed the medical record for this patient. Physician Advisor Statement: Please consider documentin. "Possible Chronic hep C", vs "possible past acute Hep C, cleared" - if it is possible to find out if he has had confirmatory hep C viral load testing (+) or (-) ..... 2. When documenting SIRS, please always state the most likely cause. We can always state later that "SIRS was ruled out". If sepsis is possible, state likely cause & the supporting evidence for the dx. We can always state later that "sepsis was ruled out". - In this case, pt had tachycardia & tachypnea but no fever and no WBC >12K that this reviewer can find. Therefore, pt does not appear to meet criteria for SIRS this visit (must have either temp or WBC criteria (+), not just tachycardia/tachypnea). - Pt did have JARAD (this would support possible sepsis if felt to be due to sepsis rather than due to dehydration), MAPs in the 60s at times (again, due to sepsis?, or due to volume depletion/other cause?), & lactate 2.6 initially (due to sepsis, or due to liver dz or mesenteric ischemia?). Thanks! CK
--- NOTE | 2017-07-14 14:50 | PDOC PROGRESS REPORT ---
Subjective Progress Note for:: 07/14/17 Subjective:: Patient underwent upper endoscopy and biopsies are back. There does appear to be fungal elements and will need to be treated. Biopsies do not show any Helicobacter pylori However there is reactive squamous mucosa noted He will need to be treated with antifungals as well as PPI Repeat scope, EGD in about 4-6 weeks if he is able to come back. Obviously the concern is for possible malignancy. This was stressed to the patient. Otherwise no other significant findings noted on upper endoscopy. The gastric biopsy is noted to be nonmalignant. Reason For Visit: ACUTE RENAL FAILURE Physical Exam Vital Signs: Temp Pulse Resp BP Pulse Ox 98 F 99 16 147/81 H 100 07/14/17 12:00 07/14/17 12:00 07/14/17 12:00 07/14/17 12:00 07/14/17 12:00 Intake & Output 07/13/17 07/14/17 07/15/17 06:59 06:59 06:59 Intake Total 1500 5842 Output Total 200 400 Balance 1300 5442 Weight 71.1 kg 71 kg General appearance: PRESENT: no acute distress, well-developed, well-nourished Head exam: PRESENT: atraumatic, normocephalic Eye exam: PRESENT: EOMI, PERRLA. ABSENT: nystagmus, periorbital swelling, scleral icterus Mouth exam: PRESENT: moist Throat exam: ABSENT: tonsillar exudate, tonsillogmegaly Neck exam: ABSENT: meningismus, tenderness, thyromegaly Respiratory exam: PRESENT: symmetrical, unlabored. ABSENT: tachypnea, wheezes Cardiovascular exam: PRESENT: RRR, +S1, +S2 GI/Abdominal exam: PRESENT: soft. ABSENT: rebound, rigid, tenderness Extremities exam: ABSENT: joint swelling Musculoskeletal exam: PRESENT: full ROM Neurological exam: PRESENT: oriented to time, oriented to situation, reflexes normal, CN II-XII grossly intact Skin exam: PRESENT: normal color. ABSENT: mottled, pallor, petechiae, urticaria , vesicles Results Laboratory Results: 07/14/17 05:03 07/14/17 05:03 07/14/17 07/14/17 05:03 05:03 WBC 4.4 RBC 4.07 L Hgb 10.3 L Hct 32.2 L MCV 79 L MCH 25.4 L MCHC 32.1 RDW 18.7 H Plt Count 311 Seg Neutrophils % 50.5 Lymphocytes % 36.3 Monocytes % 10.6 Eosinophils % 1.8 Basophils % 0.8 Absolute Neutrophils 2.2 Absolute Lymphocytes 1.6 Absolute Monocytes 0.5 Absolute Eosinophils 0.1 Absolute Basophils 0.0 Sodium 140.1 Potassium 4.1 Chloride 102 Carbon Dioxide 27 Anion Gap 11 BUN 22 H Creatinine 1.60 H Est GFR ( Amer) 53 L Est GFR (Non-Af Amer) 44 L Glucose 94 Calcium 9.2 Phosphorus 2.8 Magnesium 2.1 Impressions: Chest X-Ray 07/12/17 06:22 IMPRESSION: No acute cardiopulmonary findings. Moderate hiatal hernia. 2010 [employer]- All Rights Reserved Abdomen/Pelvis CT 07/12/17 07:34 IMPRESSION: 1. LARGE HIATAL HERNIA. THICKENING OF THE WALL OF THE STOMACH NEAR THE FUNDUS, PROBABLY RELATED TO RELATIVE NONDISTENTION. MUCOSAL MASS CANNOT BE EXCLUDED. 2. NO OTHER SIGNIFICANT OR ACUTE PROCESS IN THE ABDOMEN OR PELVIS. 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 - Time Time Spent with patient: 15-24 minutes
--- NOTE | 2017-07-14 15:47 | PDOC PROGRESS REPORT ---
Subjective Progress Note for:: 07/14/17 Subjective:: The patient states that he continues to improve. He states that his abdominal pain is almost totally resolved. His hospitalization was reviewed to date and all of his questions were answered. He denies fever chills. No chest pain, shortness of breath or heart palpitations. No nausea, vomiting or diarrhea. No dysuria, frequency or hematuria. He was seen by GI today and it is noted that the patient has fungal esophagitis per his biopsies from his endoscopy. He will be started on nystatin swish and swallow. He also will need a repeat endoscopy in 4-6 weeks as there is an area that is suspicious. Reason For Visit: ACUTE RENAL FAILURE Physical Exam Vital Signs: Temp Pulse Resp BP Pulse Ox 98 F 99 16 147/81 H 100 07/14/17 12:00 07/14/17 12:00 07/14/17 12:00 07/14/17 12:00 07/14/17 12:00 Intake & Output 07/13/17 07/14/17 07/15/17 06:59 06:59 06:59 Intake Total 1500 5842 1206 Output Total 200 400 Balance 1300 5442 1206 Weight 71.1 kg 71 kg General appearance: PRESENT: disheveled, thin Head exam: PRESENT: atraumatic, normocephalic Eye exam: PRESENT: conjunctiva pink, EOMI, PERRLA. ABSENT: scleral icterus Ear exam: PRESENT: normal external ear exam Neck exam: ABSENT: carotid bruit, JVD, lymphadenopathy, thyromegaly Respiratory exam: PRESENT: clear to auscultation belén. ABSENT: rales, rhonchi, wheezes Cardiovascular exam: PRESENT: RRR. ABSENT: diastolic murmur, rubs, systolic murmur GI/Abdominal exam: PRESENT: normal bowel sounds, soft. ABSENT: distended, guarding, mass, organolmegaly, rebound, tenderness Extremities exam: PRESENT: full ROM. ABSENT: calf tenderness, clubbing, pedal edema Neurological exam: PRESENT: alert, awake, oriented to person, oriented to place , oriented to time, oriented to situation, CN II-XII grossly intact. ABSENT: motor sensory deficit Psychiatric exam: PRESENT: appropriate affect, normal mood. ABSENT: homicidal ideation, suicidal ideation Skin exam: PRESENT: dry, intact, warm. ABSENT: cyanosis, rash Results Laboratory Results: 07/14/17 05:03 07/14/17 05:03 07/14/17 07/14/17 05:03 05:03 WBC 4.4 RBC 4.07 L Hgb 10.3 L Hct 32.2 L MCV 79 L MCH 25.4 L MCHC 32.1 RDW 18.7 H Plt Count 311 Seg Neutrophils % 50.5 Lymphocytes % 36.3 Monocytes % 10.6 Eosinophils % 1.8 Basophils % 0.8 Absolute Neutrophils 2.2 Absolute Lymphocytes 1.6 Absolute Monocytes 0.5 Absolute Eosinophils 0.1 Absolute Basophils 0.0 Sodium 140.1 Potassium 4.1 Chloride 102 Carbon Dioxide 27 Anion Gap 11 BUN 22 H Creatinine 1.60 H Est GFR ( Amer) 53 L Est GFR (Non-Af Amer) 44 L Glucose 94 Calcium 9.2 Phosphorus 2.8 Magnesium 2.1 Impressions: Chest X-Ray 07/12/17 06:22 IMPRESSION: No acute cardiopulmonary findings. Moderate hiatal hernia. 2010 [employer]- All Rights Reserved Abdomen/Pelvis CT 07/12/17 07:34 IMPRESSION: 1. LARGE HIATAL HERNIA. THICKENING OF THE WALL OF THE STOMACH NEAR THE FUNDUS, PROBABLY RELATED TO RELATIVE NONDISTENTION. MUCOSAL MASS CANNOT BE EXCLUDED. 2. NO OTHER SIGNIFICANT OR ACUTE PROCESS IN THE ABDOMEN OR PELVIS. Assessment & Plan - Diagnosis (1) Acute kidney injury Plan: Likely secondary to dehydration from nausea and vomiting. His creatinine is improved today. We will continue IV fluid hydration. (2) Fungal esophagitis Plan: Possibly contributing to his abdominal pain. He will be started on nystatin swish and swallow. He will follow-up with GI as an outpatient. (3) Abdominal pain Plan: The patient was found to have fungal esophagitis. This could be contributing to his abdominal pain. He has known chronic pancreatitis. His nausea vomiting and diarrhea have stopped. It is also possible that he may have had a viral gastroenteritis. (4) Metabolic alkalosis Plan: Resolved (5) Chronic pancreatitis Plan: I do not think he is having an acute attack of pancreatitis at this point. He may be having some pain from his chronic pancreatitis.. (6) SIRS (systemic inflammatory response syndrome) Plan: He does not appear to have an underlying infection. His SIRS symptoms are likely related to his acute abdominal pain he had at the time of admission. Also his acute renal failure. We will check labs in the morning and continue to monitor him closely overnight. Overall he is stabilizing. (7) COPD (chronic obstructive pulmonary disease) Plan: No evidence of exacerbation (8) CAD (coronary artery disease) Plan: Continue his home regimen of medications. [facility] (9) Hypertension Plan: We will just continue to monitor. (10) History of hepatitis C Plan: The patient states that he has a history of hepatitis C which was treated. I am unsure how accurate this is. GI is following and we will let them decide on whether hepatitis panel is needed. (11) History of CVA (cerebrovascular accident) Plan: The patient reports that he has a history of a CVA. Currently not on antiplatelet therapy likely due to his GI issues. (12) GERD (gastroesophageal reflux disease) Plan: The patient will be started on Prevacid twice daily - Time Time Spent with patient: 25-34 minutes - Inpatient Certification Based on my medical assessment, after consideration of the patient's comorbidities, presenting symptoms, or acuity I expect that the services needed warrant INPATIENT care.: Yes I certify that my determination is in accordance with my understanding of Medicare's requirements for reasonable and necessary INPATIENT services [42 CFR 412.3e].: Yes Medical Necessity: Need For IV Fluids
[2017-07-14] MEDS: LANSOPRAZOLE 30 MG TAB.RAP.DR PO SCH (16:05)
[2017-07-14] MEDS: NYSTATIN 500000 UNIT/5 ML UDCUP PO SCH ×3 (16:22→23:57)
[2017-07-14] MEDS ORDERED: NYSTATIN 500000 UNIT/5 ML UDCUP PO ONE (17:00)
[2017-07-14] MEDS: QUETIAPINE FUMARATE 100 MG TABLET PO SCH (21:17)
[2017-07-15] MEDS: GABAPENTIN 400 MG CAPSULE PO SCH ×2 (05:21→14:20)
[2017-07-15] MEDS: LANSOPRAZOLE 30 MG TAB.RAP.DR PO SCH (05:21)
[2017-07-15] MEDS: NYSTATIN 500000 UNIT/5 ML UDCUP PO SCH ×2 (05:21→11:57)
[2017-07-15] MEDS: LIPASE/PROTEASE/AMYLASE 1 CAP CAPSULE.DR PO SCH ×6 (08:30→11:57)
[2017-07-15] MEDS: DOCUSATE SODIUM 100 MG CAPSULE PO SCH (09:31)
[2017-07-15] MEDS: THIAMINE HCL 100 MG TABLET PO SCH (09:31)
[2017-07-15] MEDS: MAGNESIUM OXIDE 400 MG TABLET PO SCH (09:31)
[2017-07-15] MEDS: AMITRIPTYLINE HCL 50 MG TABLET PO SCH (09:31)
[2017-07-15] MEDS: LACTOBACILLUS ACIDOPHILUS 250 MG TAB PO SCH (09:31)
[2017-07-15] MEDS: ENOXAPARIN SODIUM INJ 30 MG/0.3 ML DISP.SYRIN SUBCUT SCH (09:34)
--- NOTE | 2017-07-15 13:23 | RADIOLOGY REPORT (SQ) ---
EXAM DESCRIPTION: NM LUNG VENT/PERF SCAN COMPLETED DATE/TIME: 07/15/2017 1:03 pm REASON FOR STUDY: elevated ddimer COMPARISON: None. RADIONUCLIDE AND DOSE: 5.4 millicuries TC-99m MAA Intravenous 32.2 millicuries TC-99m DTPA Inhaled aerosol TECHNIQUE: Eight views of the lungs acquired post ventilation of DTPA aerosol. Eight matching views of the lungs acquired following injection of MAA. LIMITATIONS: None. FINDINGS: VENTILATION: There is some minimal inhomogeneity of the distribution of tracer activity PERFUSION: There is some minimal inhomogeneity of the distribution of tracer activity which correlate s with the ventilation findings. No ventilation perfusion mismatches are identified. OTHER: No other significant finding. IMPRESSION: Ventilation perfusion lung scan low probability for pulmonary embolic disease. TECHNICAL DOCUMENTATION: JOB ID: [id number] [employer]- All Rights Reserved
--- NOTE | 2017-07-15 13:24 | RADIOLOGY REPORT (SQ) ---
EXAM DESCRIPTION: CHEST PA/LAT COMPLETED DATE/TIME: 07/15/2017 1:08 pm REASON FOR STUDY: SOB, ELEV D-DIMER PER PROTOCOL FOR NM VQ COMPARISON: October 2014 EXAM PARAMETERS: NUMBER OF VIEWS: two views TECHNIQUE: Digital Frontal and Lateral radiographic views of the chest acquired. RADIATION DOSE: NA LIMITATIONS: none FINDINGS: LUNGS AND PLEURA: No opacities, masses or pneumothorax. No pleural effusion. Chronic appe aring changes are identified. I cannot exclude a component of obstructive lung disease. MEDIASTINUM AND HILAR STRUCTURES: No masses or contour abnormalities. HEART AND VASCULAR STRUCTURES: Heart normal size. No evidence for failure. BONES: No acute findings. HARDWARE: None in the chest. OTHER: Hiatal hernia is identified. IMPRESSION: No significant interval change. No acute findings. Other findings as noted above TECHNICAL DOCUMENTATION: JOB ID: [id number] 1000 [employer]- All Rights Reserved
[2017-07-15 15:19] VITALS: BP 122/54
--- NOTE | 2017-07-15 16:28 | PDOC DISCHARGE SUMMARY ---
General - Admit/Disc Date/PCP Admission Date/Primary Care Provider: 07/12/17 10:28 Primary CARE physician: [facility] Building Performance Consultant: Dr. Cohen Discharge Date: 07/15/17 - Discharge Diagnosis (1) Acute kidney injury Is this a current diagnosis for this admission?: Yes Summary: Secondary to dehydration. Much improved on the day of discharge. He will need a repeat chemistry panel at the [facility] next week. (2) Fungal esophagitis Is this a current diagnosis for this admission?: Yes Summary: He will complete a course of nystatin swish and swallow. He will need a repeat endoscopy which will be scheduled by his colleter. (3) Abdominal pain Is this a current diagnosis for this admission?: Yes Summary: The patient has a history of known chronic pancreatitis. There was no evidence of pancreatitis on his CT scan and he had a normal lipase level. Certainly has fungal esophagitis could be contributing to this. It is also possible that the patient had a viral gastroenteritis. In any event the patient is much improved with treatment. (4) Metabolic alkalosis Is this a current diagnosis for this admission?: Yes Summary: Resolved (5) Chronic pancreatitis Is this a current diagnosis for this admission?: Yes Summary: No evidence of acute pancreatitis during this hospitalization. He will resume his home regimen and follow-up with GI as an outpatient. (6) SIRS (systemic inflammatory response syndrome) Is this a current diagnosis for this admission?: Yes Summary: Likely due to his acute abdominal pain. He did have an mildly elevated d- dimer. He had a VQ scan prior to discharge which was low probability for a pulmonary embolism. He continues to have some mild sinus tachycardia. Further workup can be performed as an outpatient. (7) COPD (chronic obstructive pulmonary disease) Is this a current diagnosis for this admission?: Yes Summary: No evidence of exacerbation (8) CAD (coronary artery disease) Is this a current diagnosis for this admission?: Yes Summary: He will resume his home regimen. His lisinopril however has been stopped due to his acute renal failure. He has been started on amlodipine. (9) Hypertension Is this a current diagnosis for this admission?: Yes Summary: His lisinopril has been stopped. He will be started on low-dose amlodipine at the time of discharge. (10) History of hepatitis C Is this a current diagnosis for this admission?: Yes Summary: The patient reported that he had completed treatment for this. He will follow- up with GI as an outpatient. (11) History of CVA (cerebrovascular accident) Is this a current diagnosis for this admission?: Yes Summary: No evidence of further events. (12) GERD (gastroesophageal reflux disease) Is this a current diagnosis for this admission?: Yes Summary: Resume PPI. He will complete his course of nystatin swish and swallow for his fungal esophagitis. - Additional Information Resuscitation Status: Full Code Discharge Diet: As Tolerated Discharge Activity: Activity As Tolerated Home Medications: Amitriptyline HCl [Elavil 50 mg Tablet] 50 mg PO DAILY 07/12/17 Gabapentin [Neurontin 400 mg Capsule] 800 mg PO Q8 07/12/17 Lactobacillus Acidophilus [Acidophilus] 1 tab PO Q12 07/12/17 Lipase/Protease/Amylase [Creon Dr 24,000 Units Capsule] 1 cap PO Q8 07/12/17 Magnesium Oxide [Mag-Ox 400 mg Tablet] 400 mg PO DAILY 07/12/17 Omeprazole 20 mg PO Q12 07/12/17 Quetiapine Fumarate [Seroquel] 200 mg PO QHS 07/12/17 Sildenafil Citrate [Viagra] 100 mg PO ASDIR PRN 07/12/17 Thiamine HCl [Thiamine 100 mg Tablet] 100 mg PO DAILY 07/12/17 Amlodipine Besylate 5 mg PO DAILY #30 tab 07/15/17 Nystatin [Mycostatin 500,000 Unit/5 ml Susp Udcup] 500,000 unit PO Q6 #120 ml Thiamine HCl [Thiamine 100 mg Tablet] 100 mg PO DAILY tablet 07/15/17 History of Present Illness History of Present Illness: The patient is a pleasant 61-year-old -Congolese male with a history of recurrent chronic pancreatitis. In addition he has known coronary artery disease, COPD, history of a CVA a and reportedly has hepatitis C and is undergone treatment for this. He has underlying bipolar disorder as well. Patient presented to the emergency room with a 3 day history of nausea vomiting and abdominal pain. He states he became quite dehydrated and dizzy. He also has had increased shortness of breath and burning in his chest. He states that he has been losing weight for the past several months and reports that he has lost approximately 30 pounds and has been having night sweats at night. Hospital Course Hospital Course: The patient was admitted to the hospital. He was found to have evidence of acute renal failure with a creatinine level of 3.75. It was felt that the intractable nausea and vomiting had caused dehydration resulting in his acute kidney injury. He was hydrated with normal saline. In regards to his nausea vomiting and weight loss he was seen by the GI service. An upper endoscopy was performed and the patient was found to have evidence of esophagitis and gastritis as well as a small hiatal hernia. Ultimately his biopsies revealed a fungal esophagitis. He was started on nystatin swish and swallow. The patient continued to have mild sinus tachycardia throughout the hospitalization. He had a mildly elevated d-dimer. VQ scan was obtained which was read as low probability for a pulmonary embolism. Over the course of the hospitalization the patient began to improve. His acute kidney injury is resolving. He has been up ambulating in the hallways without difficulty. GI would like to follow the patient up in the office at the beginning of August. He will need a repeat endoscopy scheduled at that appointment. His lisinopril has been held and he has been started on low-dose amlodipine for his blood pressure. At this point the patient is quite stable. He will be discharged home today in stable condition with close outpatient follow-up. Physical Exam Vital Signs: Temp Pulse Resp BP Pulse Ox 97.6 F 102 H 16 122/54 L 100 07/15/17 15:11 07/15/17 15:11 07/15/17 15:11 07/15/17 15:11 07/15/17 15:11 Intake & Output 07/14/17 07/15/17 07/16/17 06:59 06:59 06:59 Intake Total 5842 4983 650 Output Total 400 Balance 5442 4983 650 Weight 71 kg 74.3 kg General appearance: PRESENT: no acute distress, well-developed, well-nourished Head exam: PRESENT: atraumatic, normocephalic Eye exam: PRESENT: conjunctiva pink, EOMI, PERRLA. ABSENT: scleral icterus Mouth exam: PRESENT: moist, tongue midline Respiratory exam: PRESENT: clear to auscultation belén. ABSENT: rales, rhonchi, wheezes Cardiovascular exam: PRESENT: tachycardia. ABSENT: diastolic murmur, rubs, systolic murmur GI/Abdominal exam: PRESENT: normal bowel sounds, soft. ABSENT: distended, guarding, mass, organolmegaly, rebound, tenderness Rectal exam: PRESENT: deferred Extremities exam: PRESENT: full ROM. ABSENT: calf tenderness, clubbing, pedal edema Neurological exam: PRESENT: alert Psychiatric exam: PRESENT: appropriate affect, normal mood. ABSENT: homicidal ideation, suicidal ideation Skin exam: PRESENT: dry, intact, warm. ABSENT: cyanosis, rash Results Laboratory Results: 07/14/17 05:03 07/14/17 05:03 07/13/17 05:45 Sputum Gram Stain - Final 07/13/17 05:45 Sputum Sputum Culture - Final Haemophilus Influenzae Normal Elizabeth Impressions: Abdomen/Pelvis CT 07/12/17 07:34 IMPRESSION: 1. LARGE HIATAL HERNIA. THICKENING OF THE WALL OF THE STOMACH NEAR THE FUNDUS, PROBABLY RELATED TO RELATIVE NONDISTENTION. MUCOSAL MASS CANNOT BE EXCLUDED. 2. NO OTHER SIGNIFICANT OR ACUTE PROCESS IN THE ABDOMEN OR PELVIS. Chest X-Ray 07/15/17 00:00 IMPRESSION: No significant interval change. No acute findings. Other findings as noted above Lung Scan-VQ NM 07/15/17 00:00 IMPRESSION: Ventilation perfusion lung scan low probability for pulmonary embolic disease. Qualifiers PATEINT BEING DISCHARGED WITH ANY OF THE FOLLOWING DIAGNOSIS?: No Plan Discharge Plan: The patient will be discharged home today in stable condition. Time Spent: Greater than 30 Minutes
== END 2017-07-15 15:55 | disposition home or self-care (01) | DRG 683 ==
LOC: ER 06:14 → EH 10:28 → 4W 21:45
PROVIDERS: ADMIT Family Medicine; ATTEND Family Medicine
PROC: 0DB58ZX Excision of Esophagus, Via Natural or Artificial Opening Endoscopic, Diagnostic (ICD-10-PCS; 2017-07-13)
PROC: 0DB68ZX Excision of Stomach, Via Natural or Artificial Opening Endoscopic, Diagnostic (ICD-10-PCS; principal; 2017-07-13 08:45)
DX: N17.9 Acute kidney failure, unspecified (principal); E87.3 Alkalosis; K86.1 Other chronic pancreatitis; E86.0 Dehydration; K20.8 Other esophagitis; R79.1 Abnormal coagulation profile; J44.9 Chronic obstructive pulmonary disease, unspecified; B19.20 Unspecified viral hepatitis C without hepatic coma; I25.10 Atherosclerotic heart disease of native coronary artery without angina pectoris; I10 Essential (primary) hypertension; K21.9 Gastro-esophageal reflux disease without esophagitis; F31.9 Bipolar disorder, unspecified; K44.9 Diaphragmatic hernia without obstruction or gangrene; K29.70 Gastritis, unspecified, without bleeding; M19.90 Unspecified osteoarthritis, unspecified site; F17.210 Nicotine dependence, cigarettes, uncomplicated; F41.9 Anxiety disorder, unspecified; I25.2 Old myocardial infarction; Z79.899 Other long term (current) drug therapy; Z86.73 Personal history of transient ischemic attack (TIA), and cerebral infarction without residual deficits; Z21 Asymptomatic human immunodeficiency virus [HIV] infection status; Z90.49 Acquired absence of other specified parts of digestive tract; Z91.013 Allergy to seafood; Z91.041 Radiographic dye allergy status; Z82.61 Family history of arthritis; Z82.49 Family history of ischemic heart disease and other diseases of the circulatory system; Z83.3 Family history of diabetes mellitus
CPT/HCPCS: 00740; 36415; 43239; 71010; 71020; 74176; 78582; 80048; 80061; 80076; 81001; 82150; 83036; 83605; 83690; 83735; 83880; 84100; 84439; 84443; 84484; 85025; 85379; 87040; 87070; 87077; 87086; 87088; 87205; 88305; 88312; 88342; 93005; 93010; 96361; 96374; 96375; 99285; A9540; A9567; J1170; J1650; J2250; J2370; J2405; J2704; J3010; J3490; J7030; Q9969

== ENCOUNTER 2017-07-28 12:08 | Emergency (ER) | payer OTHER ==
[2017-07-28] MEDS ORDERED: NORMAL SALINE 1000 ML 1,000 ML IV ONE (12:31)
--- NOTE | 2017-07-28 12:32 | ER Document Report ---
ED Medical Screen (RME) - General Chief Complaint: Vomiting Stated Complaint: VOMITING, THROAT PAIN Time Seen by Provider: 07/28/17 12:30 Mode of Arrival: Ambulatory Information source: Patient Notes: Patient complains of nausea vomiting and throat pain. States that he feels dehydrated. TRAVEL OUTSIDE OF THE [place] IN LAST 30 DAYS: No - Related Data Allergies/Adverse Reactions: coffee (Coffea arabica) [Coffee] Allergy (Verified 07/28/17 12:09) Iodinated Contrast- Oral and IV Dye [IV Dye, Iodine Containing] Allergy ( Verified 07/28/17 12:09) iodine [Iodine] Allergy (Verified 07/28/17 12:09) Shellfish * [Shellfish] Allergy (Verified 07/28/17 12:09) Past Medical History - Social History Frequency of alcohol use: None Drug Abuse: Marijuana, Other - Past Medical History Cardiac Medical History: Reports: Hx Coronary Artery Disease, Hx Heart Attack, Hx Hypercholesterolemia, Hx Hypertension Pulmonary Medical History: Reports: Hx COPD Neurological Medical History: Reports: Hx Cerebrovascular Accident. Denies: Hx Seizures Endocrine Medical History: Reports: Hx Diabetes Mellitus Type 1, Hx Diabetes Mellitus Type 2 Renal/ Medical History: Denies: Hx Peritoneal Dialysis GI Medical History: Reports: Hx Gastroesophageal Reflux Disease, Hx Hepatitis Musculoskeltal Medical History: Reports Hx Arthritis Psychiatric Medical History: Reports: Hx Anxiety, Hx Bipolar Disorder, Hx Depression Infectious Medical History: Reports: Hx Hepatitis, Hx HIV Past Surgical History: Reports: Hx Abdominal Surgery, Hx Cholecystectomy - Immunizations Immunizations up to date: No Hx Diphtheria, Pertussis, Tetanus Vaccination: Yes History of Influenza Vaccine for 05/2017 - 10/2017 Season: No Physical Exam - Vital signs Vitals: Temp Pulse Resp BP Pulse Ox 98.5 F 110 H 16 119/81 98 07/28/17 12:15 07/28/17 12:15 07/28/17 12:15 07/28/17 12:15 07/28/17 12:15 Course - Vital Signs Vital signs: Temp Pulse Resp BP Pulse Ox 98.5 F 110 H 16 119/81 98 07/28/17 12:15 07/28/17 12:15 07/28/17 12:15 07/28/17 12:15 07/28/17 12:15
[2017-07-28] MEDS ORDERED: ONDANSETRON 4 MG TAB.RAPDIS PO ONE (13:05)
[2017-07-28 13:39] LABS: ABSOLUTE EOSINOPHILS # (AUTO) 0.1 10^3/uL (0.0-0.6); ABSOLUTE LYMPHOCYTES (AUTO) 1.9 10^3/uL (0.5-4.7); ABSOLUTE MONOCYTES (AUTO) 0.4 10^3/uL (0.1-1.4); ABSOLUTE NEUT (AUTO) 3.7 10^3/uL (1.7-8.2); BASOPHILS % (AUTO) 0.6 % (0-2); EOSINOPHILS % (AUTO) 1.8 % (0-6); HEMOGLOBIN 12.9 g/dL (13.5-17.0); HGB HCT DIFFERENCE -0.3; LYMPHOCYTES % (AUTO) 30.8 % (13-45); MEAN CORPUSCULAR HEMOGLOBIN 26.2 pg (27.0-33.4); MEAN CORPUSCULAR VOLUME 79 fl (80-97); MONOCYTES % (AUTO) 6.2 % (3-13); RED BLOOD COUNT 4.92 10^6/uL (4.35-5.55); RED CELL DISTRIBUTION WIDTH 18.4 % (11.5-14.0); SEGMENTED NEUTROPHILS % (AUTO) 60.6 % (42-78); WHITE BLOOD COUNT 6.1 10^3/uL (4.0-10.5)
[2017-07-28 13:43] LABS: AMORPHOUS SEDIMENT,URINE TRACE /HPF; APPEARANCE,URINE CLOUDY; BILIRUBIN,URINE NEGATIVE (NEGATIVE); GLUCOSE, URINE 150 mg/dL (NEGATIVE); KETONES,URINE NEGATIVE (NEGATIVE); LEUKOCYTE ESTERASE,URINE NEGATIVE (NEGATIVE); NITRITE,URINE NEGATIVE (NEGATIVE); PROTEIN,URINE 30 mg/dL (NEGATIVE); URINE SPECIFIC GRAVITY 1.015
[2017-07-28] MEDS ORDERED: MAG HYDROX/AL HYDROX/SIMETH SUSP 30 ML UDCUP PO ONE (14:29)
[2017-07-28] MEDS ORDERED: METOCLOPRAMIDE HCL ORAL SOLN 10 MG/10 ML UDCUP PO ONE (14:29)
[2017-07-28] MEDS ORDERED: LIDOCAINE 2% VISCOUS SOLN 20 ML UDCUP PO ONE (14:29)
[2017-07-28 15:22] LABS: ALANINE AMINOTRANSFERASE 22 U/L (21-72); ALBUMIN 4.4 g/dL (3.5-5.0); ALKALINE PHOSPHATASE 157 U/L (38-126); ANION GAP 12 (5-19); ASPARTATE AMINO TRANSFERASE 24 U/L (17-59); BILIRUBIN,DIRECT 0.3 mg/dL (0.0-0.4); BILIRUBIN,TOTAL 0.5 mg/dL (0.2-1.3); BLOOD UREA NITROGEN 10 mg/dL (7-20); CARBON DIOXIDE 31 mmol/L (22-30); CHLORIDE 99 mmol/L (98-107); GLUCOSE 81 mg/dL (75-110); LIPASE 82.5 U/L (23-300); POTASSIUM 3.6 mmol/L (3.6-5.0); SODIUM 142.3 mmol/L (137-145); TOTAL PROTEIN 8.7 g/dL (6.3-8.2)
--- NOTE | 2017-07-28 15:41 | ER Document Report ---
ED General - General Chief Complaint: Vomiting Stated Complaint: VOMITING, THROAT PAIN Time Seen by Provider: 07/28/17 12:30 Mode of Arrival: Ambulatory Information source: Patient Notes: 61-year-old male history of gastric reflux who had a recent endoscopy that noted he has gastritis with ulceration presents with complaints of gastric reflux. Patient denies any fevers or chills admits to nausea vomiting Patient denies any chest pain denies any shortness of breath states this is chronic pain since his previous visit TRAVEL OUTSIDE OF THE [place] IN LAST 30 DAYS: No - HPI Onset: Other - 9 month duration Onset/Duration: Persistent Quality of pain: Burning Severity: Mild Pain Level: 1 Associated symptoms: Nausea, Vomiting Exacerbated by: Denies Relieved by: Denies Similar symptoms previously: Yes Recently seen / treated by doctor: Yes - Related Data Allergies/Adverse Reactions: coffee (Coffea arabica) [Coffee] Allergy (Verified 07/28/17 12:09) Iodinated Contrast- Oral and IV Dye [IV Dye, Iodine Containing] Allergy ( Verified 07/28/17 12:09) iodine [Iodine] Allergy (Verified 07/28/17 12:09) Shellfish * [Shellfish] Allergy (Verified 07/28/17 12:09) Past Medical History - General Information source: Patient - Social History Smoking Status: Current Every Day Smoker Cigarette use (# per day): Yes Chew tobacco use (# tins/day): No Smoking Education Provided: No Frequency of alcohol use: None Drug Abuse: Marijuana, Other Family History: Arthritis, CAD - Sister, DM, Hyperlipidemia, Hypertension Patient has suicidal ideation: No Patient has homicidal ideation: No - Past Medical History Cardiac Medical History: Reports: Hx Coronary Artery Disease, Hx Heart Attack, Hx Hypercholesterolemia, Hx Hypertension Pulmonary Medical History: Reports: Hx COPD Neurological Medical History: Reports: Hx Cerebrovascular Accident. Denies: Hx Seizures Endocrine Medical History: Reports: Hx Diabetes Mellitus Type 1, Hx Diabetes Mellitus Type 2 Renal/ Medical History: Denies: Hx Peritoneal Dialysis GI Medical History: Reports: Hx Gastroesophageal Reflux Disease, Hx Hepatitis Musculoskeltal Medical History: Reports Hx Arthritis Psychiatric Medical History: Reports: Hx Anxiety, Hx Bipolar Disorder, Hx Depression Infectious Medical History: Reports: Hx Hepatitis, Hx HIV Past Surgical History: Reports: Hx Abdominal Surgery, Hx Cholecystectomy - Immunizations Immunizations up to date: No Hx Diphtheria, Pertussis, Tetanus Vaccination: Yes Hx Pneumococcal Vaccination: 08/08/12 Review of Systems - Review of Systems Notes: REVIEW OF SYSTEMS: CONSTITUTIONAL : Denies fever, chills, or sweats. Denies recent illness. EENT: Denies eye, ear, throat, or mouth pain or symptoms. Denies nasal or sinus congestion or discharge. Denies throat, tongue, or mouth swelling or difficulty swallowing. CARDIOVASCULAR: Denies chest pain. Denies palpitations or racing or irregular heart beat. Denies ankle edema. RESPIRATORY: Denies cough, cold, or chest congestion. Denies shortness of breath, difficulty breathing, or wheezing. GASTROINTESTINAL: Admits to gastric reflux GENITOURINARY: Denies difficulty urinating, painful urination, burning, frequency, blood in urine, or discharge. MUSCULOSKELETAL: Denies back or neck pain or stiffness. Denies joint pain or swelling. SKIN: Denies rash, lesions or sores. HEMATOLOGIC : Denies easy bruising or bleeding. LYMPHATIC: Denies swollen, enlarged glands. NEUROLOGICAL: Denies confusion or altered mental status. Denies passing out or loss of consciousness. Denies dizziness or lightheadedness. Denies headache. Denies weakness or paralysis or loss of use of either side. Denies problems with gait or speech. Denies sensory loss, numbness, or tingling. Denies seizures. PSYCHIATRIC: Denies anxiety or stress. Denies depression, suicidal ideation, or homicidal ideation. ALL OTHER SYSTEMS REVIEWED AND NEGATIVE. Dictation was performed using enavu voice recognition software PHYSICAL EXAMINATION: GENERAL: Well-appearing, well-nourished and in no acute distress. HEAD: Atraumatic, normocephalic. EYES: Pupils equal round and reactive to light, extraocular movements intact, sclera anicteric, conjunctiva are normal. ENT: Nares patent, oropharynx clear without exudates. Moist mucous membranes. NECK: Normal range of motion, supple without lymphadenopathy LUNGS: Breath sounds clear to auscultation bilaterally and equal. No wheezes rales or rhonchi. HEART: Regular rate and rhythm without murmurs ABDOMEN: Soft, nontender, nondistended abdomen. No guarding, no rebound. No masses appreciated. Musculoskeletal: Normal range of motion, no pitting or edema. No cyanosis. NEUROLOGICAL: Cranial nerves grossly intact. Normal speech, normal gait. Normal sensory, motor exams PSYCH: Normal mood, normal affect. SKIN: Warm, Dry, normal turgor, no rashes or lesions noted. Physical Exam - Vital signs Vitals: Temp Pulse Resp BP Pulse Ox 98.5 F 110 H 16 119/81 98 07/28/17 12:15 07/28/17 12:15 07/28/17 12:15 07/28/17 12:15 07/28/17 12:15 Course - Re-evaluation Re-evalutation: 07/28/17 16:19 Patient was noted to have normal vital signs except for mild tachycardia which appears to be more from anxiety rather than any pain. Patient endoscopy was discussed with him, ulceration was noted, patient was given GI cocktail with significant improvement of his symptoms. I will put him on him from omeprazole and Pepcid and given follow-up with GI specialist After performing a Medical Screening Examination, I estimate there is LOW risk for ACUTE APPENDICITIS, BOWEL OBSTRUCTION, ACUTE CHOLECYSTITIS, PERFORATED DIVERTICULITIS, INCARCERATED HERNIA, PANCREATITIS, TESTICULAR TORSION or PERFORATED ULCER, thus I consider the discharge disposition reasonable. Also, there is no evidence or peritonitis, sepsis, or toxicity. I have reevaluated this patient multiple times and no significant life threatening changes are noted. The patient and I have discussed the diagnosis and risks, and we agree with discharging home with close follow-up with the understanding that symptoms and presentations can change. We also discussed returning to the Emergency Department immediately if new or worsening symptoms occur. We have discussed the symptoms which are most concerning (e.g., bloody stool, fever, changing or worsening pain, intractable vomiting - standard verbal up date) that necessitate immediate return. - Vital Signs Vital signs: Temp Pulse Resp BP Pulse Ox 98.5 F 98 19 142/84 H 98 07/28/17 15:47 07/28/17 15:47 07/28/17 15:47 07/28/17 15:47 07/28/17 15:47 - Laboratory Result Diagrams: 07/28/17 13:01 07/28/17 14:47 Laboratory results interpreted by me: 07/28/17 07/28/17 07/28/17 12:51 13:01 14:47 Hgb 12.9 L MCV 79 L MCH 26.2 L RDW 18.4 H Carbon Dioxide 31 H Alkaline Phosphatase 157 H Total Protein 8.7 H Urine Protein 30 H Urine Glucose (UA) 150 H Urine Urobilinogen 2.0 H Discharge - Discharge Clinical Impression: Epigastric abdominal pain GERD (gastroesophageal reflux disease) Qualifiers: Esophagitis presence: with esophagitis Qualified Code(s): K21.0 - Gastro- esophageal reflux disease with esophagitis Condition: Stable Disposition: HOME, SELF-CARE Prescriptions: Famotidine [Pepcid 20 mg Tablet] 20 mg PO DAILY #30 tablet Omeprazole 20 mg PO BID #60 capsule.dr Referrals: TIFFANIE MCLEAN PA [Primary Care Provider] - Follow up tomorrow
[2017-07-28 15:49] VITALS: BP 142/84
== END 2017-07-28 16:20 | disposition home or self-care (01) ==
LOC: ER 12:08
DX: K21.0 Gastro-esophageal reflux disease with esophagitis (principal); K29.70 Gastritis, unspecified, without bleeding; K25.9 Gastric ulcer, unspecified as acute or chronic, without hemorrhage or perforation; R10.13 Epigastric pain; R11.2 Nausea with vomiting, unspecified; I10 Essential (primary) hypertension; I25.10 Atherosclerotic heart disease of native coronary artery without angina pectoris; I25.2 Old myocardial infarction; E11.9 Type 2 diabetes mellitus without complications; F17.210 Nicotine dependence, cigarettes, uncomplicated; Z90.49 Acquired absence of other specified parts of digestive tract; Z91.018 Allergy to other foods; Z91.041 Radiographic dye allergy status; Z91.013 Allergy to seafood; R00.0 Tachycardia, unspecified
CPT/HCPCS: 99283; 96360; 36415; 83690; 85025; 80053; 81001; S0119; J3490; J7030

== ENCOUNTER 2017-10-07 07:33 | Emergency (ER) | payer OTHER ==
[2017-10-07 08:37] LABS: ABSOLUTE BASOPHILS # (AUTO) 0.1 10^3/uL (0.0-0.2); ABSOLUTE EOSINOPHILS # (AUTO) 0.1 10^3/uL (0.0-0.6); ABSOLUTE LYMPHOCYTES (AUTO) 1.6 10^3/uL (0.5-4.7); ABSOLUTE NEUT (AUTO) 6.7 10^3/uL (1.7-8.2); BASOPHILS % (AUTO) 0.6 % (0-2); EOSINOPHILS % (AUTO) 1.3 % (0-6); HEMATOCRIT 34.5 % (37.9-51.0); HEMOGLOBIN 11.2 g/dL (13.5-17.0); LYMPHOCYTES % (AUTO) 17.1 % (13-45); MEAN CORPUSCULAR HEMOGLOBIN 26.6 pg (27.0-33.4); MEAN CORPUSCULAR HGB CONC 32.4 g/dL (32.0-36.0); MEAN CORPUSCULAR VOLUME 82 fl (80-97); MONOCYTES % (AUTO) 10.2 % (3-13); PLATELET COUNT 289 10^3/uL (150-450); RED BLOOD COUNT 4.21 10^6/uL (4.35-5.55); RED CELL DISTRIBUTION WIDTH 16.5 % (11.5-14.0); SEGMENTED NEUTROPHILS % (AUTO) 70.8 % (42-78); TOTAL CELLS COUNTED % (AUTO) 100 %; WHITE BLOOD COUNT 9.4 10^3/uL (4.0-10.5)
[2017-10-07 08:52] LABS: ALANINE AMINOTRANSFERASE 34 U/L (21-72); ALBUMIN 4.3 g/dL (3.5-5.0); ALKALINE PHOSPHATASE 119 U/L (38-126); ANION GAP 14 (5-19); ASPARTATE AMINO TRANSFERASE 50 U/L (17-59); BILIRUBIN,DIRECT 0.1 mg/dL (0.0-0.4); BILIRUBIN,TOTAL 0.6 mg/dL (0.2-1.3); BLOOD UREA NITROGEN 29 mg/dL (7-20); CALCIUM 9.5 mg/dL (8.4-10.2); CARBON DIOXIDE 22 mmol/L (22-30); CHLORIDE 99 mmol/L (98-107); GLUCOSE 112 mg/dL (75-110); LIPASE 229.5 U/L (23-300); POTASSIUM 4.6 mmol/L (3.6-5.0); SODIUM 134.8 mmol/L (137-145); TOTAL PROTEIN 7.6 g/dL (6.3-8.2)
[2017-10-07 08:53] LABS: ACETAMINOPHEN < 10 ug/mL (10-30); ALCOHOL < 10 mg/dL (NONE DETECTED); SALICYLATE < 1.0 mg/dL (2.0-20.0)
[2017-10-07] MEDS ORDERED: NORMAL SALINE 1000 ML 1,000 ML IV ONE ×2 (09:35→12:43)
[2017-10-07 12:24] LABS: APPEARANCE,URINE CLEAR; BILIRUBIN,URINE NEGATIVE (NEGATIVE); COLOR,URINE STRAW; GLUCOSE, URINE NEGATIVE (NEGATIVE); KETONES,URINE NEGATIVE (NEGATIVE); LEUKOCYTE ESTERASE,URINE NEGATIVE (NEGATIVE); NITRITE,URINE NEGATIVE (NEGATIVE); PROTEIN,URINE NEGATIVE (NEGATIVE); URINE SPECIFIC GRAVITY 1.004; UROBILINOGEN,URINE NEGATIVE mg/dL (<2.0)
[2017-10-07 12:47] LABS: URINE AMPHETAMINES SCREEN NEGATIVE; URINE BARBITURATES SCREEN NEGATIVE; URINE BENZODIAZEPINES SCREEN NEGATIVE; URINE MARIJUANA (THC) SCREEN UNCONFIRMED POSITIVE; URINE METHADONE SCREEN NEGATIVE; URINE PHENCYCLIDINE SCREEN NEGATIVE
[2017-10-07 12:55] LABS: URINE COCAINE SCREEN UNCONFIRMED POSITIVE
--- NOTE | 2017-10-07 14:06 | PSYCHOLOGICAL NOTE ---
Psych Note - Psych Note Psych Note: Reason for consult: suicidal and homicidal ideation Consent Permissions: Romeo Diane, brother Patient presents to ER A&O x 4 with suicidal and homicidal ideation. EMS reports mobile crisis was on scene. Reports they thought pt had a bed at [facility] but after Kaya (community vendor relationship manager) called [facility] she found that he did not have a bed there. Pt reports hx of SI. Reports he drinks "two beers" daily, marijuana daily, smokes crack and "shoots dope". Reports last time he smoked crack was 2 days ago and "went into a coma" until waking up this morning. When asked if he has a plan for suicide he reports "yeah shoot as much dope as I can". Reports hx of pancreatic cyst and current abdominal discomfort. States "last time you gave me morphine and some Benadryl". Reports homicidal ideation toward brother, states "I don't know why I feel that way toward my family". He disclosed he was having thoughts of wanting to kill himself and "someone else." He continued to state "these thoughts... They do not make sense... Why my thinking these things....they are so evil... I don't like it." Patient initially disclosed that he had mixed cocaine and fentanyl as intentional overdose and that he was "just happy someone called" EMS "because I had been laying there for 2 days." Patient then disclosed that this happened in 2014 in [facility]. Patient then disclosed how difficult it is with substance abuse because you "reach out for help and there is nothing there... you just think just go ahead and do it.. nobody cares no how." When asked what occurred prior to arrival to [facility] he said he was "ripping and running" denies any suicidal attempt. When asked if patient has a place to stay, he stated "I left my apartment..it is not conducive for me to go back there... if I live by myself I will ." Patient later clarified that he is about to lose apartment because he did not pay the rent and states "I know I need treatment . " Clinician discussed inpatient substance abuse treatment through the [facility]; patient disclosed he had just heard about that right before he became sick and founf out about the cyst on his pancreas. Patient is alert and orientated to person, place, time and circumstance. Mood is euthymic with congruent affect. Patient endorses passive suicidal ideation i.e. no plans means nor intent. Delusions are absent and behaviors congruent with intact reality based presentation i.e. organized and linear thought processes. Eye contact was well-maintained. Conversational speech was within normal rate, tone and prosody. Intellectual abilities appear to be within the average range. Attention and concentration are fair. Insight, judgment, impulse control are poor due to substance abuse. Patient is a poor historian and at times difficult to understand it takes; many questions to identify proper timelines. Behavioral health team attempted to contact patient's brother; not excepting phone calls recording. Medication recommendations per [facility]'s contracted psychiatrist, MD Selwyn are as follows: 1. Depakote 250 mg twice daily 2. BuSpar 10 mg twice daily Impression/Plan: Patient is considered psychiatrically clear. Patient does not meet IVC criteria per [place] GS 120 2C. Patient endorses passive suicidal and homicidal ideation i.e. no plans means or intent. Patient has chronic long- term substance abuse. Clinician discussed substance use treatment options; patient understands treatment is voluntary. Patient disclosed economic difficulties of possibly losing his apartment and is adamant that now is the time for treatment. Behavior is congruent with the emptying to achieve secondary gain i.e. housing. Clinician [facility]. [facility] is recommended to follow-up with community outreach program to assist with case management [facility]. Dr. Osorio was consulted and the care management this patient; attending physician in agreement with her conditions and disposition.
[2017-10-07] MEDS ORDERED: BUSPIRONE HCL 10 MG TABLET PO ONE (14:21)
--- NOTE | 2017-10-07 15:36 | ER Document Report ---
ED General - General Chief Complaint: Psych Problem Stated Complaint: SUICIDAL IDEATIONS Time Seen by Provider: 10/07/17 07:54 Information source: Patient TRAVEL OUTSIDE OF THE [place] IN LAST 30 DAYS: No - HPI Patient complains to provider of: cocaine abuse/SI (no plan) Onset: Other - chronic Similar symptoms previously: Yes Notes: Patient is losing his house because he is not paying rent. He states that he used cocaine yesterday by snorting it. He states usually he uses crack. He presents here because he states he needs help with his drug addiction. He also states that he was suicidal but did not have a plan. - Related Data Allergies/Adverse Reactions: coffee (Coffea arabica) [Coffee] Allergy (Verified 07/28/17 12:09) Iodinated Contrast- Oral and IV Dye [IV Dye, Iodine Containing] Allergy ( Verified 07/28/17 12:09) iodine [Iodine] Allergy (Verified 07/28/17 12:09) Shellfish * [Shellfish] Allergy (Verified 07/28/17 12:09) Past Medical History - General Information source: Patient - Social History Smoking Status: Current Every Day Smoker Frequency of alcohol use: Heavy Drug Abuse: Cocaine, Marijuana, Other Lives with: Alone Family History: Arthritis, CAD - Sister, DM, Hyperlipidemia, Hypertension Patient has suicidal ideation: Yes Patient has homicidal ideation: Yes - Past Medical History Cardiac Medical History: Reports: Hx Coronary Artery Disease, Hx Heart Attack, Hx Hypercholesterolemia, Hx Hypertension Pulmonary Medical History: Reports: Hx COPD Neurological Medical History: Reports: Hx Cerebrovascular Accident. Denies: Hx Seizures Endocrine Medical History: Reports: Hx Diabetes Mellitus Type 1, Hx Diabetes Mellitus Type 2 Renal/ Medical History: Denies: Hx Peritoneal Dialysis Malignancy Medical History: Reports None GI Medical History: Reports: Hx Gastroesophageal Reflux Disease, Hx Hepatitis Musculoskeltal Medical History: Reports Hx Arthritis Psychiatric Medical History: Reports: Hx Anxiety, Hx Bipolar Disorder, Hx Depression Infectious Medical History: Reports: Hx Hepatitis, Hx HIV Past Surgical History: Reports: Hx Abdominal Surgery, Hx Cholecystectomy - Immunizations Immunizations up to date: No Hx Diphtheria, Pertussis, Tetanus Vaccination: Yes Hx Pneumococcal Vaccination: 08/08/12 Review of Systems - Review of Systems Constitutional: No symptoms reported EENT: No symptoms reported Cardiovascular: No symptoms reported Respiratory: No symptoms reported Gastrointestinal: Abdominal pain - general and diffuse Genitourinary: No symptoms reported Male Genitourinary: No symptoms reported Musculoskeletal: No symptoms reported Skin: No symptoms reported Hematologic/Lymphatic: No symptoms reported Neurological/Psychological: No symptoms reported Physical Exam - Vital signs Vitals: Temp Pulse Resp BP Pulse Ox 98.0 F 61 16 90/45 L 96 10/07/17 07:34 10/07/17 07:34 10/07/17 07:34 10/07/17 07:34 10/07/17 07:34 - Notes Notes: PHYSICAL EXAMINATION: GENERAL: Well-appearing, well-nourished and in no acute distress. HEAD: Atraumatic, normocephalic. EYES: Pupils equal round and reactive to light, extraocular movements intact, sclera anicteric, conjunctiva are normal. ENT: Nares patent, oropharynx clear without exudates. Moist mucous membranes. NECK: Normal range of motion, supple without lymphadenopathy LUNGS: Breath sounds clear to auscultation bilaterally and equal. No wheezes rales or rhonchi. HEART: Regular rate and rhythm without murmurs ABDOMEN: Soft, nontender, nondistended abdomen. No guarding, no rebound. No masses appreciated. Musculoskeletal: Normal range of motion, no pitting or edema. No cyanosis. NEUROLOGICAL: Cranial nerves grossly intact. Normal speech, normal gait. Normal sensory, motor exams PSYCH: Normal mood, normal affect. SKIN: Warm, Dry, normal turgor, no rashes or lesions noted. Course - Re-evaluation Re-evalutation: 10/07/17 15:39 Patient stated earlier today he was hungry. He ate without difficulty. No emesis. Her pressure did come up with IV fluids. It is 110/68. 10/07/17 15:40 Spoke with Psych. Jarad is calling patient's brother to see if he can take him to [facility] for drug detox program. Psych also recommended BuSpar 10 mg p.o. twice daily as well as Depakote 250 mg p.o. twice daily. I did order the BuSpar and it was given. She will be discharged with prescriptions for both. 10/07/17 16:04 Pt. not suicidal at this time. - Vital Signs Vital signs: Temp Pulse Resp BP Pulse Ox 98.0 F 61 14 108/76 92 10/07/17 07:34 10/07/17 07:34 10/07/17 11:02 10/07/17 11:02 10/07/17 12:02 10/07/17 15:39 Labs- All tests 24 hr 10/07/17 10/07/17 10/07/17 08:20 08:20 12:05 WBC 9.4 RBC 4.21 L Hgb 11.2 L Hct 34.5 L MCV 82 MCH 26.6 L MCHC 32.4 RDW 16.5 H Plt Count 289 Seg Neutrophils % 70.8 Lymphocytes % 17.1 Monocytes % 10.2 Eosinophils % 1.3 Basophils % 0.6 Absolute Neutrophils 6.7 Absolute Lymphocytes 1.6 Absolute Monocytes 1.0 Absolute Eosinophils 0.1 Absolute Basophils 0.1 Sodium 134.8 L Potassium 4.6 Chloride 99 Carbon Dioxide 22 Anion Gap 14 BUN 29 H Creatinine 1.96 H Est GFR ( Amer) 42 L Est GFR (Non-Af Amer) 35 L Glucose 112 H Calcium 9.5 Total Bilirubin 0.6 Direct Bilirubin 0.1 Neonat Total Bilirubin Not Reportable Neonat Direct Bilirubin Not Reportable Neonat Indirect Bili Not Reportable AST 50 ALT 34 Alkaline Phosphatase 119 Total Protein 7.6 Albumin 4.3 Lipase 229.5 Urine Color STRAW Urine Appearance CLEAR Urine pH 6.0 Ur Specific Tyler 1.004 Urine Protein NEGATIVE Urine Glucose (UA) NEGATIVE Urine Ketones NEGATIVE Urine Blood SMALL H Urine Nitrite NEGATIVE Urine Bilirubin NEGATIVE Urine Urobilinogen NEGATIVE Ur Leukocyte Esterase NEGATIVE Urine WBC (Auto) 0 Urine Bacteria (Auto) TRACE Squamous Epi Cells Auto <1 Urine Mucus (Auto) RARE Urine Ascorbic Acid NEGATIVE Salicylates < 1.0 L Urine Opiates Screen Urine Methadone Screen Acetaminophen < 10 L Ur Barbiturates Screen Ur Phencyclidine Scrn Ur Amphetamines Screen U Benzodiazepines Scrn Urine Cocaine Screen U Marijuana (THC) Screen Serum Alcohol < 10 10/07/17 12:05 WBC RBC Hgb Hct MCV MCH MCHC RDW Plt Count Seg Neutrophils % Lymphocytes % Monocytes % Eosinophils % Basophils % Absolute Neutrophils Absolute Lymphocytes Absolute Monocytes Absolute Eosinophils Absolute Basophils Sodium Potassium Chloride Carbon Dioxide Anion Gap BUN Creatinine Est GFR ( Amer) Est GFR (Non-Af Amer) Glucose Calcium Total Bilirubin Direct Bilirubin Neonat Total Bilirubin Neonat Direct Bilirubin Neonat Indirect Bili AST ALT Alkaline Phosphatase Total Protein Albumin Lipase Urine Color Urine Appearance Urine pH Ur Specific Tyler Urine Protein Urine Glucose (UA) Urine Ketones Urine Blood Urine Nitrite Urine Bilirubin Urine Urobilinogen Ur Leukocyte Esterase Urine WBC (Auto) Urine Bacteria (Auto) Squamous Epi Cells Auto Urine Mucus (Auto) Urine Ascorbic Acid Salicylates Urine Opiates Screen NEGATIVE Urine Methadone Screen NEGATIVE Acetaminophen Ur Barbiturates Screen NEGATIVE Ur Phencyclidine Scrn NEGATIVE Ur Amphetamines Screen NEGATIVE U Benzodiazepines Scrn NEGATIVE Urine Cocaine Screen UNCONFIRMED POSITIVE U Marijuana (THC) Screen UNCONFIRMED POSITIVE Serum Alcohol - Laboratory Result Diagrams: 10/07/17 08:20 10/07/17 08:20 Laboratory results interpreted by me: 10/07/17 10/07/17 10/07/17 08:20 08:20 12:05 RBC 4.21 L Hgb 11.2 L Hct 34.5 L MCH 26.6 L RDW 16.5 H Sodium 134.8 L BUN 29 H Creatinine 1.96 H Est GFR ( Amer) 42 L Est GFR (Non-Af Amer) 35 L Glucose 112 H Urine Blood SMALL H Salicylates < 1.0 L Acetaminophen < 10 L Discharge - Discharge Clinical Impression: Polysubstance abuse Condition: Stable Disposition: HOME, SELF-CARE Instructions: Cocaine Abuse ([facility]) Additional Inst[facility]: [facility] Follow up with your physician tomorrow for further care or return to the ED IMMEDIATELY if symptoms worsen or new concerns occur. If you cannot afford to follow up with your primary care physician a list of low cost clinics have been provided at the end of your discharge papers as well. Prescriptions: Buspirone HCl [Buspar 10 mg Tablet] 10 mg PO BID 14 Days #28 tablet Divalproex Sodium [Depakote] 250 mg PO BID 14 Days #28 tablet. Referrals: [facility] [Outside] - Follow up as needed [facility] [Provider Group] - Follow up as needed
[2017-10-07 16:32] VITALS: BP 104/59
== END 2017-10-07 16:33 | disposition home or self-care (01) ==
LOC: ER 07:33
DX: R45.851 Suicidal ideations (principal); F14.10 Cocaine abuse, uncomplicated; F19.10 Other psychoactive substance abuse, uncomplicated; F17.200 Nicotine dependence, unspecified, uncomplicated; I25.10 Atherosclerotic heart disease of native coronary artery without angina pectoris; E78.00 Pure hypercholesterolemia, unspecified; I10 Essential (primary) hypertension; E11.9 Type 2 diabetes mellitus without complications; Z21 Asymptomatic human immunodeficiency virus [HIV] infection status; Z91.013 Allergy to seafood; Z91.018 Allergy to other foods; I25.2 Old myocardial infarction; Z86.73 Personal history of transient ischemic attack (TIA), and cerebral infarction without residual deficits; Z90.49 Acquired absence of other specified parts of digestive tract
CPT/HCPCS: 99285; 96360; 96361; 36415; 80307 ×4; 83690; 85025; 81001; 80053; J7030

== ENCOUNTER 2017-10-10 11:59 | Emergency (ER) | payer OTHER ==
--- NOTE | 2017-10-10 13:03 | ER Document Report ---
ED Psych Disorder / Suicide - General Chief Complaint: Suicidal Ideation Stated Complaint: SUICIDAL IDEATION Time Seen by Provider: 10/10/17 12:54 TRAVEL OUTSIDE OF THE [place] IN LAST 30 DAYS: No - HPI Patient complains to provider of: Suicidal ideation, Suicidal plan Notes: 61-year-old man presents with continued suicidal ideation, homicidal ideation. Patient has a plan to get it killed by police or run into highway in front of his house. Patient states he attempted suicide approximately 30 years ago. Patient has been compliant with his Seroquel and amitriptyline but states are not helping him. Continues to have thoughts of killing others or himself. - Related Data Allergies/Adverse Reactions: coffee (Coffea arabica) [Coffee] Allergy (Verified 10/10/17 12:01) Iodinated Contrast- Oral and IV Dye [IV Dye, Iodine Containing] Allergy ( Verified 10/10/17 12:01) iodine [Iodine] Allergy (Verified 10/10/17 12:01) Shellfish * [Shellfish] Allergy (Verified 10/10/17 12:01) Past Medical History - Social History Smoking Status: Current Every Day Smoker Chew tobacco use (# tins/day): No Frequency of alcohol use: Heavy Drug Abuse: Marijuana, Other Family History: Arthritis, CAD - Sister, DM, Hyperlipidemia, Hypertension Patient has suicidal ideation: Yes Patient has homicidal ideation: Yes - Past Medical History Cardiac Medical History: Reports: Hx Coronary Artery Disease, Hx Heart Attack, Hx Hypercholesterolemia, Hx Hypertension Pulmonary Medical History: Reports: Hx COPD Neurological Medical History: Reports: Hx Cerebrovascular Accident. Denies: Hx Seizures Endocrine Medical History: Reports: Hx Diabetes Mellitus Type 1, Hx Diabetes Mellitus Type 2 Renal/ Medical History: Denies: Hx Peritoneal Dialysis GI Medical History: Reports: Hx Gastroesophageal Reflux Disease, Hx Hepatitis Musculoskeltal Medical History: Reports Hx Arthritis Psychiatric Medical History: Reports: Hx Anxiety, Hx Bipolar Disorder, Hx Depression Infectious Medical History: Reports: Hx Hepatitis, Hx HIV Past Surgical History: Reports: Hx Abdominal Surgery, Hx Cholecystectomy - Immunizations Immunizations up to date: No Hx Diphtheria, Pertussis, Tetanus Vaccination: Yes Hx Pneumococcal Vaccination: 08/08/12 Review of Systems - Review of Systems Constitutional: No symptoms reported EENT: No symptoms reported Cardiovascular: No symptoms reported Respiratory: No symptoms reported Gastrointestinal: No symptoms reported Genitourinary: No symptoms reported Male Genitourinary: No symptoms reported Musculoskeletal: No symptoms reported Skin: No symptoms reported Hematologic/Lymphatic: No symptoms reported Neurological/Psychological: Suicidal ideation Physical Exam - Vital signs Vitals: Temp Pulse Resp BP Pulse Ox 98.5 F 115 H 20 141/64 H 99 10/10/17 12:11 10/10/17 12:11 10/10/17 12:11 10/10/17 12:11 10/10/17 12:11 - Notes Notes: PHYSICAL EXAMINATION: GENERAL: Well-appearing, well-nourished and in no acute distress. HEAD: Atraumatic, normocephalic. EYES: Pupils equal round and reactive to light, extraocular movements intact, sclera anicteric, conjunctiva are normal. ENT: nares patent, oropharynx clear without exudates. Moist mucous membranes. NECK: Normal range of motion, supple without lymphadenopathy LUNGS: Breath sounds clear to auscultation bilaterally and equal. No wheezes rales or rhonchi. HEART: Regular rate and rhythm without murmurs ABDOMEN: Soft, nontender, normoactive bowel sounds. No guarding, no rebound. No masses appreciated. EXTREMITIES: Normal range of motion, no pitting or edema. No cyanosis. NEUROLOGICAL: Cranial nerves grossly intact. Normal speech, normal gait. Normal sensory and motor exams. PSYCH: Normal mood, normal affect. SKIN: Warm, Dry, normal turgor, no rashes or lesions noted. Course - Vital Signs Vital signs: Temp Pulse Resp BP Pulse Ox 98.5 F 115 H 20 141/64 H 99 10/10/17 12:11 10/10/17 12:11 10/10/17 12:11 10/10/17 12:11 10/10/17 12:11
[2017-10-10 13:51] LABS: APPEARANCE,URINE CLEAR; BILIRUBIN,URINE NEGATIVE (NEGATIVE); COLOR,URINE YELLOW; GLUCOSE, URINE NEGATIVE (NEGATIVE); KETONES,URINE NEGATIVE (NEGATIVE); LEUKOCYTE ESTERASE,URINE NEGATIVE (NEGATIVE); NITRITE,URINE NEGATIVE (NEGATIVE); PROTEIN,URINE NEGATIVE (NEGATIVE); URINE SPECIFIC GRAVITY 1.009; UROBILINOGEN,URINE NEGATIVE mg/dL (<2.0)
[2017-10-10 14:08] LABS: URINE AMPHETAMINES SCREEN NEGATIVE; URINE BARBITURATES SCREEN NEGATIVE; URINE BENZODIAZEPINES SCREEN NEGATIVE; URINE COCAINE SCREEN UNCONFIRMED POSITIVE; URINE MARIJUANA (THC) SCREEN UNCONFIRMED POSITIVE; URINE METHADONE SCREEN NEGATIVE; URINE PHENCYCLIDINE SCREEN NEGATIVE
--- NOTE | 2017-10-10 14:13 | PSYCHOLOGICAL NOTE ---
Psych Note - Psych Note Psych Note: Reason for consult: Suicidal ideation Time of consult 1:30 pm final disposition 2:30 pm Contact permissions: Franki Mcfadden mobile bag worker Patient is a 61 old male. Patient reports that he was discharged Tuesday and given a recommendation to go to a prison but was not allowed in due to him being a registered sex offender. Patient reports he spent two nights in the cold due to him being homeless. Patient reports his brother allowed him to stay one night but told him today he could not stay there every night. Patient denies intent for SI/HI, and states that he just does not want to be out in the streets because it has been cold. Patient stated " how can you want a man in the streets, all you guys do is give me medications and send me home where am I supposed to go I'm homeless, you didn't know I was a sex offender and couldn't get in that prison". Patient reports he wants to be sent to a psychiatric ernst for the "structure" and so that he could " be around people like him". Patient reports he was prescribed 2 psych meds to potato picker Tuesday but stated that he does not have the money for those medications. Patient reports he called mobile crisis work Franki Mcfadden to talk to him and learned about a program that helps homeless veterans. Patient reports that if he could set up with them or go to a psych ernst things would be better for him. Patient reports that he will say whatever he needs to so that he could go. Patient stated " I got whatever disorder you need me to be gamey, I know the game". Patient requested clinician contact his brother Romeo to ask him if he could stay there so he would not have to sleep on the streets but then said he did not want the clinician to ask for him to stay but only to talk to Romeo about patient's mental health symptoms. Patient reports he wants to be admitted upstairs for medical reasons and then proceeded to name all of his health issues to include cyst, pancreatitis and the need for 11 different medications for his health that he takes daily. Collateral information: Franki Mcfadden mobile bag worker Mobile bag worker contacted stated that patient reported having suicidal ideation and wanting to run out in the road in front of the car. Clinician provided Franki information about statements made by patient. Franki stated he would document the information and share this info with his supervisor carbon electrodes. Medication Recommendation: None Diagnosis: V 60.0 ( Z59.0) Homelessness Impression/Plan: Patient is psychiatrically cleared for discharge ,patient denied SI/HI. Recommendation for patient to follow up with [facility] mobile crisis management worker Franki Mcfadden, worker contacted and transportation was arranged. [facility] worker Franki states patient's brother Romeo agreed to have patient live in his home. Resources provided to patient. Dr. Reardon agreed with discharge plan. Consulted with Dr. Osorio regarding the management and care of patient.
[2017-10-10 15:39] VITALS: BP 147/75
--- NOTE | 2017-10-10 21:58 | EKG REPORT ---
SEVERITY:- BORDERLINE ECG - SINUS TACHYCARDIA PROBABLE LEFT ATRIAL ABNORMALITY : Confirmed by: Jena Munoz 10-Oct-2017 21:58:10
== END 2017-10-10 15:42 | disposition home or self-care (01) ==
LOC: ER 11:59
DX: Z59.0 Homelessness (principal); R45.851 Suicidal ideations; R45.850 Homicidal ideations; F31.9 Bipolar disorder, unspecified; Z79.899 Other long term (current) drug therapy; F17.200 Nicotine dependence, unspecified, uncomplicated; I25.10 Atherosclerotic heart disease of native coronary artery without angina pectoris; I25.2 Old myocardial infarction; I10 Essential (primary) hypertension; J44.9 Chronic obstructive pulmonary disease, unspecified; E11.9 Type 2 diabetes mellitus without complications; Z91.041 Radiographic dye allergy status; Z91.018 Allergy to other foods; Z91.013 Allergy to seafood
CPT/HCPCS: 80307; 81001; 93005; 93010; 99285

== ENCOUNTER 2017-12-27 11:46 | Emergency (ER) | payer OTHER ==
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
[2017-12-27] MEDS ORDERED: KETOROLAC TROMETHAMINE 60 MG/2 ML SDV IM ONE (14:01)
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
[2017-12-27 15:49] VITALS: BP 155/77
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
== END 2017-12-27 16:12 | disposition home or self-care (01) ==
LOC: ER 11:46
DX: S13.9XXA Sprain of joints and ligaments of unspecified parts of neck, initial encounter (principal); G89.29 Other chronic pain; M54.5 Low back pain; V43.52XA Car driver injured in collision with other type car in traffic accident, initial encounter; Z91.013 Allergy to seafood; Z87.891 Personal history of nicotine dependence; I25.10 Atherosclerotic heart disease of native coronary artery without angina pectoris; I25.2 Old myocardial infarction; E78.00 Pure hypercholesterolemia, unspecified; I10 Essential (primary) hypertension; J44.9 Chronic obstructive pulmonary disease, unspecified; Z86.73 Personal history of transient ischemic attack (TIA), and cerebral infarction without residual deficits; E11.9 Type 2 diabetes mellitus without complications; B20 Human immunodeficiency virus [HIV] disease; Z90.49 Acquired absence of other specified parts of digestive tract
CPT/HCPCS: 99284; 96372; 72125; 72131; L0120; J1885

== ENCOUNTER 2018-04-11 11:20 | Emergency (ER) | payer OTHER ==
[2018-04-11 11:48] VITALS: BP 124/79
[2018-04-11] MEDS ORDERED: NORMAL SALINE 1000 ML 1,000 ML IV ONE (12:49)
--- NOTE | 2018-04-11 12:53 | ER Document Report ---
ED Medical Screen (RME) - General Chief Complaint: Blurred Vision Stated Complaint: BLURRED VISION Time Seen by Provider: 04/11/18 12:38 Notes: Patient is a 62-year-old male that presents to the emergency department for chief complaint of vision loss and abdominal pain. ROS: GENERAL: Denies fever or chills CV: Denies chest pain PHYSICAL EXAMINATION: Vital signs reviewed. GENERAL: Well-appearing, well-nourished and in no acute distress. HEAD: Atraumatic, normocephalic. EYES: Pupils equal round extraocular movements intact, conjunctiva are normal. ENT: Nares patent NECK: Normal range of motion CV: Heart regular rate and rhythm Abdomen: Epigastric abdominal tenderness LUNGS: No respiratory distress Musculoskeletal: Normal range of motion NEUROLOGICAL: Normal speech PSYCH: Normal mood, normal affect. MDM: Patient seen and examined for rapid initial assessment. Vital signs reviewed. A comprehensive ED assessment and evaluation of the patient, analysis of test results and completion of the medical decision making process will be conducted by additional ED providers. *Note is created using voice recognition software and may contain spelling, syntax or grammatical errors. TRAVEL OUTSIDE OF THE [place] IN LAST 30 DAYS: No - Related Data Allergies/Adverse Reactions: coffee (Coffea arabica) [Coffee] Allergy (Verified 04/11/18 11:22) Iodinated Contrast- Oral and IV Dye [IV Dye, Iodine Containing] Allergy ( Verified 04/11/18 11:22) iodine [Iodine] Allergy (Verified 04/11/18 11:22) Shellfish * [Shellfish] Allergy (Verified 04/11/18 11:22) Past Medical History - Social History Frequency of alcohol use: Occasional Drug Abuse: Marijuana - Past Medical History Cardiac Medical History: Reports: Hx Coronary Artery Disease, Hx Heart Attack, Hx Hypercholesterolemia, Hx Hypertension Pulmonary Medical History: Reports: Hx COPD Neurological Medical History: Reports: Hx Cerebrovascular Accident. Denies: Hx Seizures Endocrine Medical History: Reports: Hx Diabetes Mellitus Type 1, Hx Diabetes Mellitus Type 2 Renal/ Medical History: Denies: Hx Peritoneal Dialysis GI Medical History: Reports: Hx Gastroesophageal Reflux Disease, Hx Hepatitis Musculoskeltal Medical History: Reports Hx Arthritis Psychiatric Medical History: Reports: Hx Anxiety, Hx Bipolar Disorder, Hx Depression Infectious Medical History: Reports: Hx Hepatitis, Hx HIV Past Surgical History: Reports: Hx Abdominal Surgery, Hx Cholecystectomy - Immunizations Immunizations up to date: No Hx Diphtheria, Pertussis, Tetanus Vaccination: Yes History of Influenza Vaccine for 05/2017 - 10/2017 Season: No Review of Systems - Review of Systems Notes: Dictated Physical Exam - Vital signs Vitals: Temp Pulse Resp BP Pulse Ox 98.0 F 114 H 18 124/79 96 04/11/18 11:41 04/11/18 11:41 04/11/18 11:41 04/11/18 11:41 04/11/18 11:41 - Notes Notes: Dictated Course - Vital Signs Vital signs: Temp Pulse Resp BP Pulse Ox 98.0 F 114 H 18 124/79 96 04/11/18 11:41 04/11/18 11:41 04/11/18 11:41 04/11/18 11:41 04/11/18 11:41 Doctor's Discharge - Discharge Referrals: JAH MCLEAN MD [Primary Care Provider] - Follow up as needed
[2018-04-11 13:40] LABS: APPEARANCE,URINE CLEAR; BILIRUBIN,URINE NEGATIVE (NEGATIVE); COLOR,URINE YELLOW; GLUCOSE, URINE NEGATIVE (NEGATIVE); KETONES,URINE NEGATIVE (NEGATIVE); LEUKOCYTE ESTERASE,URINE NEGATIVE (NEGATIVE); NITRITE,URINE NEGATIVE (NEGATIVE); PROTEIN,URINE NEGATIVE (NEGATIVE); URINE SPECIFIC GRAVITY 1.012; UROBILINOGEN,URINE NEGATIVE mg/dL (<2.0)
[2018-04-11 14:23] LABS: ABSOLUTE LYMPHOCYTES (AUTO) 1.3 10^3/uL (0.5-4.7); ABSOLUTE MONOCYTES (AUTO) 0.4 10^3/uL (0.1-1.4); ABSOLUTE NEUT (AUTO) 2.8 10^3/uL (1.7-8.2); BASOPHILS % (AUTO) 0.3 % (0-2); HEMATOCRIT 42.1 % (37.9-51.0); HEMOGLOBIN 13.8 g/dL (13.5-17.0); MEAN CORPUSCULAR HEMOGLOBIN 27.6 pg (27.0-33.4); MEAN CORPUSCULAR HGB CONC 32.7 g/dL (32.0-36.0); MEAN CORPUSCULAR VOLUME 84 fl (80-97); MONOCYTES % (AUTO) 8.9 % (3-13); PLATELET COUNT 238 10^3/uL (150-450); RED BLOOD COUNT 4.99 10^6/uL (4.35-5.55); RED CELL DISTRIBUTION WIDTH 17.2 % (11.5-14.0); SEGMENTED NEUTROPHILS % (AUTO) 61.8 % (42-78); TOTAL CELLS COUNTED % (AUTO) 100 %; WHITE BLOOD COUNT 4.6 10^3/uL (4.0-10.5)
[2018-04-11 14:41] LABS: ALANINE AMINOTRANSFERASE 23 U/L (21-72); ALBUMIN 4.5 g/dL (3.5-5.0); ALKALINE PHOSPHATASE 123 U/L (38-126); ANION GAP 12 (5-19); ASPARTATE AMINO TRANSFERASE 38 U/L (17-59); BILIRUBIN,DIRECT 0.5 mg/dL (0.0-0.4); BILIRUBIN,TOTAL 0.6 mg/dL (0.2-1.3); BLOOD UREA NITROGEN 13 mg/dL (7-20); C-REACTIVE PROTEIN 10.9 mg/L (<10.0); CALCIUM 9.8 mg/dL (8.4-10.2); CARBON DIOXIDE 26 mmol/L (22-30); CHLORIDE 99 mmol/L (98-107); GLUCOSE 104 mg/dL (75-110); LIPASE 562.6 U/L (23-300); POTASSIUM 4.9 mmol/L (3.6-5.0); TOTAL PROTEIN 9.1 g/dL (6.3-8.2)
--- NOTE | 2018-04-11 15:09 | RADIOLOGY REPORT (SQ) ---
EXAM DESCRIPTION: CT HEAD WITHOUT COMPLETED DATE/TIME: 04/11/2018 2:59 pm REASON FOR STUDY: intermittent vision changes COMPARISON: 09/20/2014 TECHNIQUE: Axial images acquired through the brain without intravenous contrast. Images reviewed wi th bone, brain and subdural windows. Images stored on PACS. All CT scanners at this facility use dose modulation, iterative reconstruction, and/or weight based d osing when appropriate to reduce radiation dose to as low as reasonably achievable (ALARA). [facility]: Dose Right [facility]: CareDose [facility]: Dose Right [facility]: Teradose 4D [facility]: Smart [employer]PG [employer] RADIATION DOSE: CT Rad equipment meets quality standard of care and radiation dose reduction techniq ues were employed. CTDIvol: 53.2 mGy. DLP: 991 mGy-cm. mGy. LIMITATIONS: None. FINDINGS: VENTRICLES: Normal size and contour. CEREBRUM: No masses. No hemorrhage. No midline shift. No evidence for acute infarction. Normal gra y/white matter differentiation. No areas of low density in the white matter. CEREBELLUM: No masses. No hemorrhage. No alteration of density. No evidence for acute infarction. EXTRAAXIAL SPACES: No fluid collections. No masses. ORBITS AND GLOBE: No intra- or extraconal masses. Normal contour of globe without masses. CALVARIUM: No fracture. PARANASAL SINUSES: No fluid or mucosal thickening. SOFT TISSUES: No mass or hematoma. OTHER: No other significant finding. IMPRESSION: NORMAL BRAIN CT WITHOUT CONTRAST. EVIDENCE OF ACUTE STROKE: NO. COMMENT: Quality ID # [id number]: Final reports with documentation of one or more dose reduction techniques (e.g., Automated exposure control, adjustment of the mA and/or kV according to patient size, use of iterative reconstruction technique) TECHNICAL DOCUMENTATION: JOB ID: [id number] [employer]- All Rights Reserved Reading location - IP/workstation name: [email or web address]
[2018-04-11 15:12] LABS: ERYTHROCYTE SEDIMENTATION RATE 71 mm/hr (0-20)
[2018-04-11] MEDS ORDERED: MAG HYDROX/AL HYDROX/SIMETH SUSP 30 ML UDCUP PO ONE (15:24)
[2018-04-11] MEDS ORDERED: LIDOCAINE 2% VISCOUS SOLN 20 ML UDCUP PO ONE (15:24)
[2018-04-11] MEDS ORDERED: FAMOTIDINE INJ/PF 20 MG/2 ML SDV IV ONE (15:24)
[2018-04-11] MEDS ORDERED: ONDANSETRON HCL INJ/PF 4 MG/2 ML SDV IV ONE (15:25)
--- NOTE | 2018-04-11 15:31 | ER Document Report ---
ED General - General Chief Complaint: Blurred Vision Stated Complaint: BLURRED VISION Time Seen by Provider: 04/11/18 12:38 TRAVEL OUTSIDE OF THE [place] IN LAST 30 DAYS: No - HPI Notes: 62-year-old male with multiple medical problems including housing problem, epigastric pain, schizophrenia, bipolar, cocaine dependence, hypertension, hepatitis C, recurrent pancreatitis, cataracts presents with multiple complaints. He states he has had intermittent blurry vision for the past 1-3 months. He has been seen by his primary care doctor and by eye care and told he had cataracts. He was prescribed bifocals, but states the [facility] took 30 days to give him his glasses. By the time he got his glasses he still could not see. Patient now states his vision changes are persistent and he cannot drive. He states he has complete blackout of his left eye and blurry vision in his right eye. He has frequent headaches, chest pain, shortness of breath, and has had increased abdominal pain similar to prior episodes of pancreatitis for the past 2 weeks. He reports nausea and intermittent vomiting. He has not drink alcohol in 7 days. He has history of cholecystectomy. He states his primary doctor has referred him to an director asset at the [facility] in [place] and he is awaiting appointment. It appears that he showed up at the [facility] today and was told to come to the emergency department for further evaluation. No focal numbness or weakness. - Related Data Allergies/Adverse Reactions: coffee (Coffea arabica) [Coffee] Allergy (Verified 04/11/18 11:22) Iodinated Contrast- Oral and IV Dye [IV Dye, Iodine Containing] Allergy ( Verified 04/11/18 11:22) iodine [Iodine] Allergy (Verified 04/11/18 11:22) Shellfish * [Shellfish] Allergy (Verified 04/11/18 11:22) Past Medical History - Social History Smoking Status: Current Every Day Smoker Frequency of alcohol use: Occasional Drug Abuse: Marijuana Family History: Arthritis, CAD - Sister, DM, Hyperlipidemia, Hypertension Patient has suicidal ideation: No Patient has homicidal ideation: No - Past Medical History Cardiac Medical History: Reports: Hx Coronary Artery Disease, Hx Heart Attack, Hx Hypercholesterolemia, Hx Hypertension Pulmonary Medical History: Reports: Hx COPD Neurological Medical History: Reports: Hx Cerebrovascular Accident. Denies: Hx Seizures Endocrine Medical History: Reports: Hx Diabetes Mellitus Type 1, Hx Diabetes Mellitus Type 2 Renal/ Medical History: Denies: Hx Peritoneal Dialysis GI Medical History: Reports: Hx Gastroesophageal Reflux Disease, Hx Hepatitis Musculoskeletal Medical History: Reports Hx Arthritis Psychiatric Medical History: Reports: Hx Anxiety, Hx Bipolar Disorder, Hx Depression Infectious Medical History: Reports: Hx Hepatitis, Hx HIV Past Surgical History: Reports: Hx Abdominal Surgery, Hx Cholecystectomy - Immunizations Immunizations up to date: No Hx Diphtheria, Pertussis, Tetanus Vaccination: Yes Hx Pneumococcal Vaccination: 08/08/12 Review of Systems - Review of Systems Notes: Constitutional: Negative for fever. HENT: Negative for sore throat. Eyes: Positive for visual changes. Cardiovascular: Positive for chest pain. Respiratory: Positive for shortness of breath. Gastrointestinal: Positive for abdominal pain, vomiting. negative for diarrhea. Genitourinary: Negative for dysuria. Musculoskeletal: Negative for back pain. Skin: Negative for rash. Neurological: Positive for headaches, negative for weakness or numbness. 10 point ROS negative except as marked above and in HPI. Physical Exam - Vital signs Vitals: Temp Pulse Resp BP Pulse Ox 98.0 F 114 H 18 124/79 96 04/11/18 11:41 04/11/18 11:41 04/11/18 11:41 04/11/18 11:41 04/11/18 11:41 - Notes Notes: PHYSICAL EXAMINATION: GENERAL: Well-appearing, well-nourished and in no acute distress. HEAD: Atraumatic, normocephalic. EYES: Pupils equal round and reactive to light, extraocular movements intact, conjunctiva are normal. cataracts visible. Unable to perform funduscopic exam and on dilated pupils. Very poor visual field testing bilaterally, worse on the left ENT: nares patent, oropharynx clear without exudates. Moist mucous membranes. NECK: Normal range of motion, supple without lymphadenopathy LUNGS: Breath sounds clear to auscultation bilaterally and equal. No wheezes rales or rhonchi. HEART: Regular rate and rhythm, no chest wall tenderness ABDOMEN: Soft, diffuse mild tenderness, normoactive bowel sounds. No guarding, no rebound. No masses appreciated. EXTREMITIES: Normal range of motion, no pitting or edema. No cyanosis. NEUROLOGICAL: Cranial nerves grossly intact. Normal speech, normal gait. Normal sensory and motor exams. PSYCH: Normal mood, normal affect. SKIN: Warm, Dry, normal turgor, no rashes or lesions noted. - HEENT Visual acuity- Right eye: 20/70 Visual acuity- Both eyes: 20/70 Corrective lenses worn: No - Pt states "he can't see out of Left Eye, It's all black". Course - Re-evaluation Re-evalutation: 04/11/18 15:30 Patient very well-appearing. No obvious pain. Symptoms all appear to be chronic in nature and need further evaluation from his primary care doctor and ophthalmology. CT shows no evidence of acute stroke. Labs unremarkable except slight elevation in lipase. Patient hydrated. Pain treated with nonnarcotic medications. Tachycardia unchanged from prior visits. At this time will discharge with return precautions and follow-up recommendations. Verbal discharge instructions given a the bedside and opportunity for questions given. Medication warnings reviewed. Patient is in agreement with this plan and has verbalized understanding of return precautions and the need for primary care follow-up in the next 24-72 hours. Voice dictation software was used. Chart was reviewed, but errors may exist. 04/11/18 15:31 04/11/18 15:32 - Vital Signs Vital signs: Temp Pulse Resp BP Pulse Ox 98.0 F 114 H 18 124/79 96 04/11/18 11:41 04/11/18 11:41 04/11/18 11:41 04/11/18 11:41 04/11/18 11:41 - Laboratory Result Diagrams: 04/11/18 14:00 04/11/18 14:00 Laboratory results interpreted by me: 04/11/18 04/11/18 14:00 14:00 RDW 17.2 H ESR 71 H Direct Bilirubin 0.5 H C-Reactive Protein 10.9 H Total Protein 9.1 H Lipase 562.6 H Discharge - Discharge Clinical Impression: Vision changes Chronic pancreatitis Qualifiers: Pancreatitis type: other Qualified Code(s): K86.1 - Other chronic pancreatitis Condition: Stable Disposition: HOME, SELF-CARE Instructions: Pancreatitis (OM) Additional Instructions: Clear liquid diet for the next few days to rest pancreas. No alcohol. You must follow-up with ophthalmology for vision changes. Return for any worsening or concerning symptoms. Prescriptions: Ondansetron [Zofran Odt 4 mg Tablet] 1 - 2 tab PO Q4HP PRN #10 tab.rapdis PRN Reason: Hyoscyamine Sulfate [Levsin 0.125 Tablet] 0.125 mg PO Q6 PRN #10 tablet PRN Reason: Referrals: JAH MCLEAN MD [Primary Care Provider] - Follow up in 3-5 days
[2018-04-11 15:46] LABS: URINE AMPHETAMINES SCREEN NEGATIVE; URINE BARBITURATES SCREEN NEGATIVE; URINE BENZODIAZEPINES SCREEN NEGATIVE; URINE COCAINE SCREEN NEGATIVE; URINE MARIJUANA (THC) SCREEN UNCONFIRMED POSITIVE; URINE METHADONE SCREEN NEGATIVE; URINE PHENCYCLIDINE SCREEN NEGATIVE
--- NOTE | 2018-04-11 19:30 | EKG REPORT ---
SEVERITY:- OTHERWISE NORMAL ECG - SINUS TACHYCARDIA : Confirmed by: Davis Samayoa MD 11-Apr-2018 19:30:09
== END 2018-04-11 16:18 | disposition home or self-care (01) ==
LOC: ER 11:20
DX: H53.8 Other visual disturbances (principal); K86.1 Other chronic pancreatitis; F17.200 Nicotine dependence, unspecified, uncomplicated; I10 Essential (primary) hypertension
CPT/HCPCS: 93005; 99284; 96361; 96374; 96375; 36415; 80307 ×2; 83690; 85025; 85652; 86140; 80053; 81001; 84484; 70450; 93010; J3490; J2405; J7030; S0028

== ENCOUNTER 2018-07-27 08:08 | Day surgery (SDC) | payer OTHER ==
[~2018-07-27 08:08] MED LIST: CHONDR SU A NA/HYALUR INTRAOC KIT (SURGICARE) ONE; EPINEPHRINE INJ/PF 1 MG/1 ML AMPULE ONE; KETOROLAC TROMETHAMINE 0.45% 4 DROP/0.4 ML DROPERETTE OS PRN; LIDOCAINE 1% INJ-PF (10 MG/ML) 30 ML SDV ONE
[2018-07-27] MEDS: CYCLOPENTOLATE 0.2%/PHENYLEPHRINE 1% OPH SOLN 2 ML OS PRN ×3 (09:02→09:25)
[2018-07-27] MEDS: BESIFLOXACIN HCL 0.6% OPH SUSP 5 ML BOTTLE OS PRN ×4 (09:02→09:58)
[2018-07-27] MEDS: TROPICAMIDE 1% OPH SOLN 3 ML OS PRN ×3 (09:02→09:25)
[2018-07-27] MEDS: TETRACAINE HCL 0.5% OPH SOLN 4 ML OS PRN ×3 (09:02→09:37)
[2018-07-27] MEDS ORDERED: MIDAZOLAM 2 MG/2 ML INJ ONE (09:35)
--- NOTE | 2018-07-28 19:02 | [facility] OPERATIVE REPORT E ---
[facility] Operative Report NAME: OLGA JONSE AGE: 62Y DATE OF SURGERY: 07/27/2018 ROOM: PREOPERATIVE DIAGNOSIS: CATARACT, LEFT EYE. POSTOPERATIVE DIAGNOSIS: CATARACT, LEFT EYE. OPERATION: Cataract extraction with insertion of an IOL of the left eye. SURGEON: CARRIE GRAHAM M.D. ANESTHESIA: Topical. PROCEDURE: After obtaining appropriate consent, the patient's left eye was prepped and draped in sterile fashion as well as the surgeon in a sterile manner and cataract surgery was started. First a paracentesis blade was used to make a side-port incision. Viscoelastic was used to inflate the anterior chamber. Next a 2.4 mm incision was made with a 2.4 mm blade, clear corneal temporally. A continuous capsulorrhexis was made using a cystotome and Utrata forceps. Following this hydrodissection was carried out to make the lens fully loose and mobile and it was rotated 90 degrees. Following this, a yoalho-yhh-eoxkpwt technique was used to phacoemulsify the lens with a CDE of 5.85. The remaining cortex was removed with irrigation/aspiration. Provisc was instilled into the capsular bag to inflate the bag. A SN60WF, 19.5 diopter lens was placed. The remaining viscoelastic material was removed with irrigation/aspiration. Following this, the incision was found to be watertight. Besivance was instilled into the eye and a protective shield was placed over the eye. The patient returned to the postoperative recovery in stable condition. DICTATING PHYSICIAN: CARRIE GRAHAM M.D. [id number] PHY#: [id number] ID: [id number] JOB#: [id number] ACCT: [id number] cc:CARRIE GRAHAM M.D. > MTDD
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
== END 2018-07-27 10:40 | disposition home or self-care (01) ==
LOC: SC 08:08
PROVIDERS: ATTEND Internal Medicine
DX: H25.12 Age-related nuclear cataract, left eye (principal); E11.9 Type 2 diabetes mellitus without complications; F17.210 Nicotine dependence, cigarettes, uncomplicated; M19.90 Unspecified osteoarthritis, unspecified site; G40.909 Epilepsy, unspecified, not intractable, without status epilepticus; I11.0 Hypertensive heart disease with heart failure; K44.9 Diaphragmatic hernia without obstruction or gangrene; K21.9 Gastro-esophageal reflux disease without esophagitis; J44.9 Chronic obstructive pulmonary disease, unspecified; Z86.73 Personal history of transient ischemic attack (TIA), and cerebral infarction without residual deficits; Z79.899 Other long term (current) drug therapy
CPT/HCPCS: 66984; V2632; J2250; J3490 ×3; J0171; 142

== ENCOUNTER 2018-08-15 07:36 | Day surgery (SDC) | payer OTHER ==
[~2018-08-15 07:36] MED LIST changes: -CHONDR SU A NA/HYALUR INTRAOC KIT (SURGICARE) ONE; -EPINEPHRINE INJ/PF 1 MG/1 ML AMPULE ONE; +KETOROLAC TROMETHAMINE 0.45% 4 DROP/0.4 ML DROPERETTE OD PRN; -KETOROLAC TROMETHAMINE 0.45% 4 DROP/0.4 ML DROPERETTE OS PRN; -LIDOCAINE 1% INJ-PF (10 MG/ML) 30 ML SDV ONE
[2018-08-15] MEDS ORDERED: EPINEPHRINE INJ/PF 1 MG/1 ML AMPULE ONE (07:47)
[2018-08-15] MEDS ORDERED: LIDOCAINE 1% INJ-PF (10 MG/ML) 30 ML SDV ONE (07:47)
[2018-08-15] MEDS ORDERED: CHONDR SU A NA/HYALUR INTRAOC KIT (SURGICARE) ONE (07:48)
[2018-08-15] MEDS: TETRACAINE HCL 0.5% OPH SOLN 4 ML OD PRN ×3 (08:05→08:44)
[2018-08-15] MEDS: BESIFLOXACIN HCL 0.6% OPH SUSP 5 ML BOTTLE OD PRN ×4 (08:06→09:17)
[2018-08-15] MEDS: CYCLOPENTOLATE 0.2%/PHENYLEPHRINE 1% OPH SOLN 2 ML OD PRN ×3 (08:06→08:27)
[2018-08-15] MEDS: TROPICAMIDE 1% OPH SOLN 3 ML OD PRN ×3 (08:06→08:27)
[2018-08-15] MEDS ORDERED: FENTANYL CITRATE INJ/PF 100 MCG/2 ML AMPUL ONE (08:26)
[2018-08-15] MEDS ORDERED: MIDAZOLAM 2 MG/2 ML INJ ONE (08:26)
[2018-08-15] MEDS ORDERED: POVIDONE-IODINE 5% OPH PREP SOLN 30 ML ONE (08:57)
[2018-08-15] MEDS ORDERED: LIDOCAINE 1%/PHENYLEPHRINE 1.5% 1 ML VIAL ONE (09:11)
--- NOTE | 2018-08-16 08:22 | [facility] DISCHARGE SUMMARY E ---
[facility] Discharge Summary NAME: OLGA JONES AGE: 62Y ADMITTED: 08/15/2018 DISCHARGED: 08/15/2018 FINAL DIAGNOSIS: CATARACT, RIGHT EYE. HISTORY/CLINIC COURSE: This is a 62-year-old male who underwent cataract extraction of the right eye without complication, woke up in postoperative recovery in stable condition. He underwent surgery because he was having difficulty seeing small print, like medicine bottles. Patient is to be on a regular diet. No bending at the waist, no heavy lifting. Patient should use the Besivance, Ilevro, and Durezol at 3 p.m. and 8 p.m., and sleep with a rigid shield. I will see him for 1 day postoperative. DICTATING PHYSICIAN: CARRIE GRAHAM M.D. [id number] GEO#: [id number] ID: [id number] JOB#: [id number] ACCT: [id number] cc:CARRIE GRAHAM M.D. >
--- NOTE | 2018-08-16 08:23 | [facility] OPERATIVE REPORT E ---
[facility] Operative Report NAME: OLGA JONES AGE: 62Y DATE OF SURGERY: 08/15/2018 ROOM: PREOPERATIVE DIAGNOSIS: CATARACT, RIGHT EYE. POSTOPERATIVE DIAGNOSIS: CATARACT, RIGHT EYE. OPERATION: Cataract extraction with insertion of an IOL of the right eye. SURGEON: CARRIE GRAHAM M.D. ANESTHESIA: Topical. PROCEDURE: After obtaining appropriate consent, the patient's right eye was prepped and draped in sterile fashion as well as the surgeon in a sterile manner and cataract surgery was started. First a paracentesis blade was used to make a side-port incision. Viscoelastic was used to inflate the anterior chamber. Next a 2.4 mm incision was made with a 2.4 mm blade, clear corneal temporally. A continuous capsulorrhexis was made using a cystotome and Utrata forceps. Following this hydrodissection was carried out to make the lens fully loose and mobile and it was rotated 90 degrees. Following this, a numtgf-cqg-xuyguxf technique was used to phacoemulsify the lens with a CDE of 5.62. The remaining cortex was removed with irrigation/aspiration. Provisc was instilled into the capsular bag to inflate the bag. A SN60WF, 19.0 diopter lens was placed. The remaining viscoelastic material was removed with irrigation/aspiration. Following this, the incision was found to be watertight. Besivance was instilled into the eye and a protective shield was placed over the eye. The patient returned to the postoperative recovery in stable condition. DICTATING PHYSICIAN: CARRIE GRAHAM M.D. [id number] PHY#: [id number] ID: [id number] JOB#: [id number] ACCT: [id number] cc:CARRIE GRAHAM M.D. >
== END 2018-08-15 10:14 | disposition home or self-care (01) ==
LOC: SC 07:36
PROVIDERS: ATTEND Internal Medicine
DX: H25.11 Age-related nuclear cataract, right eye (principal); Z96.1 Presence of intraocular lens; J44.9 Chronic obstructive pulmonary disease, unspecified; Z86.73 Personal history of transient ischemic attack (TIA), and cerebral infarction without residual deficits; M19.90 Unspecified osteoarthritis, unspecified site; K21.9 Gastro-esophageal reflux disease without esophagitis; Z79.899 Other long term (current) drug therapy; R06.02 Shortness of breath
CPT/HCPCS: 66984; V2632; J2250; J3490 ×4; J0171; J3010; J2370; 142

== ENCOUNTER 2018-08-23 14:37 | Emergency (ER) | payer OTHER ==
[2018-08-23] MEDS ORDERED: ONDANSETRON HCL INJ/PF 4 MG/2 ML SDV IV ONE (16:42)
--- NOTE | 2018-08-23 16:44 | ER Document Report ---
ED Medical Screen (RME) - General Chief Complaint: Flu Symptoms Stated Complaint: COUGH,CONGESTION,DIZZY Time Seen by Provider: 08/23/18 16:34 Mode of Arrival: Ambulatory Information source: Patient Notes: Patient is a 62-year-old male who presents to the emergency department with complaints of nausea, vomiting, productive cough, sore throat, body aches and dark urine. Patient reports that the symptoms have been ongoing for approximately 3 days. He denies any palpitations or chest pain. His heart rate at triage is 122. He has a history of COPD and CHF. He is unsure if he has been having fevers but he does report chills. Patient is a smoker. I have greeted and performed a rapid initial assessment of this patient. A comprehensive ED assessment and evaluation of the patient, analysis of test results and completion of the medical decision making process will be conducted by additional ED providers. Dictation of this chart was performed using voice recognition software; therefore, there may be some unintended grammatical errors. TRAVEL OUTSIDE OF THE [place] IN LAST 30 DAYS: No - Related Data Allergies/Adverse Reactions: coffee (Coffea arabica) [Coffee] Allergy (Verified 04/11/18 11:22) Iodinated Contrast- Oral and IV Dye [IV Dye, Iodine Containing] Allergy (Verified 04/11/18 11:22) iodine [Iodine] Allergy (Verified 04/11/18 11:22) Shellfish * [Shellfish] Allergy (Verified 04/11/18 11:22) Past Medical History - Social History Frequency of alcohol use: None Drug Abuse: Marijuana - Past Medical History Cardiac Medical History: Reports: Hx Congestive Heart Failure, Hx Coronary Artery Disease, Hx Hypercholesterolemia, Hx Hypertension Denies: Hx Heart Attack Pulmonary Medical History: Reports: Hx COPD Denies: Hx Asthma Neurological Medical History: Reports: Hx Cerebrovascular Accident - NO DEFICITS. Denies: Hx Seizures Endocrine Medical History: Reports: Hx Diabetes Mellitus Type 1, Hx Diabetes Mellitus Type 2 Renal/ Medical History: Denies: Hx Peritoneal Dialysis GI Medical History: Reports: Hx Gastroesophageal Reflux Disease, Hx Hepatitis, Hx Hiatal Hernia. Denies: Hx Ulcer Musculoskeltal Medical History: Reports Hx Arthritis Psychiatric Medical History: Reports: Hx Anxiety, Hx Bipolar Disorder, Hx Depression Infectious Medical History: Reports: Hx Hepatitis, Hx HIV Past Surgical History: Reports: Hx Abdominal Surgery, Hx Cholecystectomy. Denies: Hx Open Heart Surgery, Hx Pacemaker - Immunizations Immunizations up to date: No Hx Diphtheria, Pertussis, Tetanus Vaccination: Yes History of Influenza Vaccine for 05/2017 - 10/2017 Season: No Physical Exam - Vital signs Vitals: Temp Pulse Resp BP Pulse Ox 97.9 F 127 H 18 106/69 98 08/23/18 14:49 08/23/18 14:49 08/23/18 14:49 08/23/18 14:49 08/23/18 14:49 Course - Vital Signs Vital signs: Temp Pulse Resp BP Pulse Ox 97.9 F 127 H 18 106/69 98 08/23/18 14:49 08/23/18 14:49 08/23/18 14:49 08/23/18 14:49 08/23/18 14:49 Doctor's Discharge - Discharge Referrals: TIFFANIE MCLEAN PA [Primary Care Provider] - Follow up as needed
--- NOTE | 2018-08-23 17:06 | RADIOLOGY REPORT (SQ) ---
EXAM DESCRIPTION: CHEST 2 VIEWS COMPLETED DATE/TIME: 08/23/2018 4:58 pm REASON FOR STUDY: cough COMPARISON: 07/15/2017. NUMBER OF VIEWS: Two view. TECHNIQUE: Frontal and lateral radiographic views of the chest acquired. LIMITATIONS: None. FINDINGS: LUNGS AND PLEURA: No opacities, masses or pneumothorax. No pleural effusion. Attenuated bl ood vessels and flattened benito-diaphragms. MEDIASTINUM AND HILAR STRUCTURES: No masses. No contour abnormalities. HEART AND VASCULAR STRUCTURES: Heart normal in size and contour. No evidence for failure. BONES: No acute findings. HARDWARE: Clips in the upper abdomen. OTHER: Hiatal hernia. IMPRESSION: COPD. HIATAL HERNIA. NO ACUTE RADIOGRAPHIC FINDING IN THE CHEST. TECHNICAL DOCUMENTATION: JOB ID: [id number] [employer]- All Rights Reserved Reading location - IP/workstation name: [email or web address]
[2018-08-23] MEDS ORDERED: ONDANSETRON 4 MG TAB.RAPDIS PO ONE (18:12)
[2018-08-23 18:38] LABS: APPEARANCE,URINE SLIGHTLY-CLOUDY; BILIRUBIN,URINE NEGATIVE (NEGATIVE); GLUCOSE, URINE NEGATIVE (NEGATIVE); KETONES,URINE NEGATIVE (NEGATIVE); LEUKOCYTE ESTERASE,URINE NEGATIVE (NEGATIVE); NITRITE,URINE NEGATIVE (NEGATIVE); PROTEIN,URINE 100 mg/dL (NEGATIVE); URINE SPECIFIC GRAVITY 1.016; UROBILINOGEN,URINE NEGATIVE mg/dL (<2.0)
[2018-08-23 18:39] LABS: COLOR,URINE YELLOW
[2018-08-23 18:46] LABS: A TYPE INFLUENZA AG NEGATIVE (NEGATIVE); B INFLUENZA AG NEGATIVE (NEGATIVE)
[2018-08-23] MEDS ORDERED: BENZONATATE 100 MG CAPSULE PO ONE (21:04)
[2018-08-23] MEDS ORDERED: ALBUTEROL SULFATE HFA (90 MCG/PUFF) 8 GM MDI (1 MDI/ER DISP) IH ONE (21:05)
--- NOTE | 2018-08-23 21:12 | ER Document Report ---
ED General - General Chief Complaint: Flu Symptoms Stated Complaint: COUGH,CONGESTION,DIZZY Time Seen by Provider: 08/23/18 16:34 Mode of Arrival: Ambulatory Notes: Patient is a 62-year-old male who presents to the emergency department with complaints of nausea, vomiting due to excessive coughing, productive cough, sore throat, body aches and dark urine. Patient reports that the symptoms have been ongoing for approximately 3 days. He denies any palpitations or chest pain. His heart rate at triage is 122 but patient states he is always tachycardic. He has a history of COPD and CHF. Currently patient states he is feeling better and only complains of a sore throat and a cough. Patient denies fever, chills, shortness of breath, dizziness, weakness, nausea, urinary symptoms. Patient is a former IV drug user and is denying lab work. TRAVEL OUTSIDE OF THE [place] IN LAST 30 DAYS: No - Related Data Allergies/Adverse Reactions: coffee (Coffea arabica) [Coffee] Allergy (Verified 04/11/18 11:22) Iodinated Contrast- Oral and IV Dye [IV Dye, Iodine Containing] Allergy (Verified 04/11/18 11:22) iodine [Iodine] Allergy (Verified 04/11/18 11:22) Shellfish * [Shellfish] Allergy (Verified 04/11/18 11:22) Past Medical History - General Information source: Patient - Social History Smoking Status: Current Every Day Smoker Frequency of alcohol use: None Drug Abuse: Marijuana Family History: Arthritis, CAD - Sister, DM, Hyperlipidemia, Hypertension Patient has suicidal ideation: No Patient has homicidal ideation: No - Past Medical History Cardiac Medical History: Reports: Hx Congestive Heart Failure, Hx Coronary Artery Disease, Hx Hypercholesterolemia, Hx Hypertension Denies: Hx Heart Attack Pulmonary Medical History: Reports: Hx COPD Denies: Hx Asthma Neurological Medical History: Reports: Hx Cerebrovascular Accident - NO DEFICITS. Denies: Hx Seizures Endocrine Medical History: Reports: Hx Diabetes Mellitus Type 1, Hx Diabetes Mellitus Type 2 Renal/ Medical History: Denies: Hx Peritoneal Dialysis GI Medical History: Reports: Hx Gastroesophageal Reflux Disease, Hx Hepatitis, Hx Hiatal Hernia. Denies: Hx Ulcer Musculoskeletal Medical History: Reports Hx Arthritis Psychiatric Medical History: Reports: Hx Anxiety, Hx Bipolar Disorder, Hx Depression Infectious Medical History: Reports: Hx Hepatitis, Hx HIV Past Surgical History: Reports: Hx Abdominal Surgery, Hx Cholecystectomy. Denies: Hx Open Heart Surgery, Hx Pacemaker - Immunizations Immunizations up to date: No Hx Diphtheria, Pertussis, Tetanus Vaccination: Yes Hx Pneumococcal Vaccination: 08/08/12 Physical Exam - Vital signs Vitals: Temp Pulse Resp BP Pulse Ox 97.9 F 127 H 18 106/69 98 08/23/18 14:49 08/23/18 14:49 08/23/18 14:49 08/23/18 14:49 08/23/18 14:49 - Notes Notes: Reviewed vital signs and nursing note as charted by RN. CONSTITUTIONAL: Well-appearing, well-nourished, acting appropriately for age HEAD: Normocephalic, atraumatic, no swelling EYES: PERRL, Conjunctivae clear, no drainage, EOMI, no scleral icterus ENT: External ears without lesions, Pharynx with erythema, no lesions, no tonsillar hypertrophy, airway patent, mucous membranes pink and moist NECK: Supple, no cervical lymphadenopathy, no masses CARD: Regular rate and rhythm, no murmurs, no rubs, no gallops, capillary refill < 2 seconds, symmetric pulses RESP: The lungs are clear to auscultation bilaterally, no wheezing, no rales, no rhonchi. Respiratory rate and effort are normal, normal chest excursion. No respiratory distress, no retractions, no stridor, no nasal flaring, no accessory muscle use. ABD/GI: Normal bowel sounds, non-distended, soft, non-tender, no rebound, no guarding, no palpable organomegaly EXT: Normal ROM in all joints, non-tender to palpation, no effusions, no edema SKIN: Normal color for age and race, warm, dry, good turgor, no acute lesions noted NEURO: No facial asymmetry, moves all extremities equally, motor and sensory function intact Course - Re-evaluation Re-evalutation: 08/23/18 21:10 Well-appearing 62-year-old male with CHF, COPD, CAD, psych history, who is a former IV drug user presents to the emergency department for sore throat and cough. Patient arrives tachycardic but states he is always tachycardic, I clarified with him in confirm that yes he is always fast heart rate and states "it is always wanting to out run me ". He is complaining of reduced appetite due to sore throat. Triage attempted to get labs but he only allowed them to make one attempt and is refusing labs. I reiterated that we would like to get some basic labs to ensure he does not have an infectious process or there is anything out of whack with his blood chemistries. He adamantly refused labs. Urinalysis unremarkable did have a small amount of blood in it. Chest x-ray was negative for any acute pathology. At this time patient looks well and there is no wheezing on lung auscultation. Plan is to treat the sore throat symptomatically and send him home with some Tessalon Perles and a rapid dispense pack of Zofran. Patient is stable for discharge. 08/23/18 21:15 - Vital Signs Vital signs: Temp Pulse Resp BP Pulse Ox 97.9 F 127 H 18 106/69 98 08/23/18 14:49 08/23/18 14:49 08/23/18 14:49 08/23/18 14:49 08/23/18 14:49 - Laboratory Laboratory results interpreted by me: 08/23/18 17:35 Urine Protein 100 H Urine Blood SMALL H Discharge - Discharge Clinical Impression: Sore throat, Cough, Tachycardia Condition: Good Disposition: HOME, SELF-CARE Additional Instructions: You were seen in the emergency department this evening for sore throat and a cough. It is most likely due to a viral illness and symptomatic care is in order. You should do warm salt water gargles, take the Tessalon Perles I have given you, and you can get Delsym for your cough [id number]. All your symptoms are reassuring. Please follow-up with your primary care doctor in the next 24-48 hours. If you develop acute shortness of breath, worsening lightheadedness or dizziness, you pass out, have severe chest pain, or any other concerning symptoms please immediately return to the emergency department. Prescriptions: Benzonatate [Tessalon Perle 100 mg Capsule] 100 mg PO Q8HP PRN #40 cap PRN Reason: Referrals: TIFFANIE MCLEAN PA [Primary Care Provider] - Follow up as needed
[2018-08-23 21:13] VITALS: BP 117/69
[2018-08-23] MEDS ORDERED: ONDANSETRON ODT 4 MG TAB (6 TAB/ER DISP) PO PRN (21:14)
--- NOTE | 2018-08-24 09:24 | EKG REPORT ---
SEVERITY:- BORDERLINE ECG - SINUS TACHYCARDIA PROBABLE LEFT ATRIAL ABNORMALITY BORDERLINE RIGHT AXIS DEVIATION : Confirmed by: Jena Munoz 24-Aug-2018 09:22:51
== END 2018-08-23 21:42 | disposition home or self-care (01) ==
LOC: ER 14:37
DX: J02.9 Acute pharyngitis, unspecified (principal); R05 Cough; R00.0 Tachycardia, unspecified; R42 Dizziness and giddiness; R11.2 Nausea with vomiting, unspecified; F17.200 Nicotine dependence, unspecified, uncomplicated; E11.9 Type 2 diabetes mellitus without complications; I50.9 Heart failure, unspecified; B20 Human immunodeficiency virus [HIV] disease; J44.9 Chronic obstructive pulmonary disease, unspecified; I25.10 Atherosclerotic heart disease of native coronary artery without angina pectoris; Z91.013 Allergy to seafood; Z86.73 Personal history of transient ischemic attack (TIA), and cerebral infarction without residual deficits; Z90.49 Acquired absence of other specified parts of digestive tract
CPT/HCPCS: 93005; 99284; 36415; 81001; 87804; 71046; 93010; S0119; J3490

== ENCOUNTER 2018-10-11 14:41 | Emergency (ER) | payer OTHER ==
[2018-10-11 14:51] VITALS: BP 116/78
[2018-10-11] MEDS ORDERED: NORMAL SALINE 1000 ML 1,000 ML IV ONE (16:08)
[2018-10-11] MEDS ORDERED: ONDANSETRON HCL INJ/PF 4 MG/2 ML SDV IV ONE (16:08)
[2018-10-11] MEDS ORDERED: FAMOTIDINE INJ/PF 20 MG/2 ML SDV IV ONE (16:08)
--- NOTE | 2018-10-11 16:09 | ER Document Report ---
ED Medical Screen (RME) - General Chief Complaint: Vomiting Stated Complaint: VOMITTING Time Seen by Provider: 10/11/18 16:07 Primary Care Provider: TIFFANIE MCLEAN PA [Primary Care Provider] - Follow up as needed Notes: 62-year-old male to the emergency department chief complaint of abdominal pain, nausea, vomiting. History of heavy drinker. History of pancreatitis. Has been drinking. I have greeted and performed a rapid initial assessment of this patient. A comprehensive ED assessment and evaluation of the patient, analysis of test results and completion of the medical decision making process will be conducted by additional ED providers. TRAVEL OUTSIDE OF THE [place] IN LAST 30 DAYS: No - Related Data Allergies/Adverse Reactions: coffee (Coffea arabica) [Coffee] Allergy (Verified 10/11/18 14:45) Iodinated Contrast- Oral and IV Dye [IV Dye, Iodine Containing] Allergy (Verified 10/11/18 14:45) iodine [Iodine] Allergy (Verified 10/11/18 14:45) Shellfish * [Shellfish] Allergy (Verified 10/11/18 14:45) Past Medical History - Past Medical History Cardiac Medical History: Reports: Hx Congestive Heart Failure, Hx Coronary Artery Disease, Hx Hypercholesterolemia, Hx Hypertension Denies: Hx Heart Attack Pulmonary Medical History: Reports: Hx COPD Denies: Hx Asthma Neurological Medical History: Reports: Hx Cerebrovascular Accident - NO DEFICITS. Denies: Hx Seizures Endocrine Medical History: Reports: Hx Diabetes Mellitus Type 1, Hx Diabetes Mellitus Type 2 Renal/ Medical History: Denies: Hx Peritoneal Dialysis GI Medical History: Reports: Hx Gastroesophageal Reflux Disease, Hx Hepatitis, Hx Hiatal Hernia. Denies: Hx Ulcer Musculoskeltal Medical History: Reports Hx Arthritis Psychiatric Medical History: Reports: Hx Anxiety, Hx Bipolar Disorder, Hx Depression Infectious Medical History: Reports: Hx Hepatitis, Hx HIV Past Surgical History: Reports: Hx Abdominal Surgery, Hx Cholecystectomy. Denies: Hx Open Heart Surgery, Hx Pacemaker - Immunizations Immunizations up to date: No Hx Diphtheria, Pertussis, Tetanus Vaccination: Yes History of Influenza Vaccine for 05/2017 - 10/2017 Season: No Physical Exam - Vital signs Vitals: Temp Pulse Resp BP Pulse Ox 99.5 F 129 H 18 116/78 96 10/11/18 14:50 10/11/18 14:50 10/11/18 14:50 10/11/18 14:50 10/11/18 14:50 Course - Vital Signs Vital signs: Temp Pulse Resp BP Pulse Ox 99.5 F 129 H 18 116/78 96 10/11/18 14:50 10/11/18 14:50 10/11/18 14:50 10/11/18 14:50 10/11/18 14:50 Doctor's Discharge - Discharge Referrals: TIFFANIE MCLEAN PA [Primary Care Provider] - Follow up as needed
[2018-10-11] MEDS ORDERED: ONDANSETRON 4 MG TAB.RAPDIS PO ONE (16:39)
--- NOTE | 2018-10-11 16:46 | ER Document Report ---
ED General - General Chief Complaint: Vomiting Stated Complaint: VOMITTING Time Seen by Provider: 10/11/18 16:07 Primary Care Provider: TIFFANIE MCLEAN PA [Primary Care Provider] - Follow up as needed Notes: 62-year-old male to the emergency department chief complaint of nausea and vomiting. Patient states he is a heavy drinker. Diagnosed with pancreatitis in the past. States that he has been vomiting on and off with epigastric abdominal pain for the last several days. Continues to drink. Denies any blood in his stool. No other major issues at this time. States that he has a chronic elevated heart rate. TRAVEL OUTSIDE OF THE [place] IN LAST 30 DAYS: No - HPI Associated symptoms: Nausea, Vomiting - Related Data Allergies/Adverse Reactions: coffee (Coffea arabica) [Coffee] Allergy (Verified 10/11/18 14:45) Iodinated Contrast- Oral and IV Dye [IV Dye, Iodine Containing] Allergy (Verified 10/11/18 14:45) iodine [Iodine] Allergy (Verified 10/11/18 14:45) Shellfish * [Shellfish] Allergy (Verified 10/11/18 14:45) Past Medical History - General Information source: Patient - Social History Smoking Status: Current Every Day Smoker Frequency of alcohol use: Heavy Drug Abuse: None Lives with: Family Family History: Arthritis, CAD - Sister, DM, Hyperlipidemia, Hypertension Patient has suicidal ideation: No Patient has homicidal ideation: No - Past Medical History Cardiac Medical History: Reports: Hx Congestive Heart Failure, Hx Coronary Artery Disease, Hx Hypercholesterolemia, Hx Hypertension Denies: Hx Heart Attack Pulmonary Medical History: Reports: Hx COPD Denies: Hx Asthma Neurological Medical History: Reports: Hx Cerebrovascular Accident - NO DEFICITS. Denies: Hx Seizures Endocrine Medical History: Reports: Hx Diabetes Mellitus Type 1, Hx Diabetes Mellitus Type 2 Renal/ Medical History: Denies: Hx Peritoneal Dialysis GI Medical History: Reports: Hx Gastroesophageal Reflux Disease, Hx Hepatitis, Hx Hiatal Hernia. Denies: Hx Ulcer Musculoskeletal Medical History: Reports Hx Arthritis Psychiatric Medical History: Reports: Hx Anxiety, Hx Bipolar Disorder, Hx Depression Infectious Medical History: Reports: Hx Hepatitis, Hx HIV Past Surgical History: Reports: Hx Abdominal Surgery, Hx Cholecystectomy. Denies: Hx Open Heart Surgery, Hx Pacemaker - Immunizations Immunizations up to date: No Hx Diphtheria, Pertussis, Tetanus Vaccination: Yes Hx Pneumococcal Vaccination: 08/08/12 Review of Systems - Review of Systems Notes: Constitutional: denies: Chills, Diaphoresis, Fever, Malaise, Weakness EENT: denies: Eye discharge, Blurred vision, Tearing, Double vision, Nose congestion, Nose discharge, Throat swelling, Mouth pain Cardiovascular: denies: Chest pain, edema. Does complain of persistent tachycardia Respiratory: denies: Cough, Hurts to breathe, Wheezing, Shortness of breath Gastrointestinal: Patient complaining of epigastric abdominal pain, nausea and vomiting. No diarrhea. Blood in the stool. Genitourinary: denies: Burning, Dysuria, Discharge, Frequency, Flank pain, Hematuria Musculoskeletal: denies: Joint pain, Joint swelling, Muscle pain, Muscle stiffness, back pain Hematologic/Lymphatic: denies: Anemia, Easy bleeding, Easy bruising, Blood clots Neurological/Psychological: denies: Confusion, Dementia, Depression, Loss of consciousness Skin: No lesions, no masses, no skin breakdown, no abscesses Physical Exam - Vital signs Vitals: Temp Pulse Resp BP Pulse Ox 99.5 F 129 H 18 116/78 96 10/11/18 14:50 10/11/18 14:50 10/11/18 14:50 10/11/18 14:50 10/11/18 14:50 Interpretation: Tachycardic - General General appearance: Appears well, Alert - HEENT Head: Normocephalic, Atraumatic Eyes: Normal Pupils: PERRL - Respiratory Respiratory status: No respiratory distress Chest status: Nontender Breath sounds: Normal Chest palpation: Normal - Cardiovascular Rhythm: Tachycardia Heart sounds: Normal auscultation Murmur: No - Abdominal Inspection: Normal Distension: No distension Bowel sounds: Normal Tenderness: Tender - There is to palpation epigastric region Organomegaly: No organomegaly - Back Back: Normal, Nontender - Extremities General upper extremity: Normal inspection, Nontender, Normal color, Normal ROM, Normal temperature General lower extremity: Normal inspection, Nontender, Normal color, Normal ROM, Normal temperature, Normal weight bearing. No: Brandyn's sign - Neurological Neuro grossly intact: Yes Cognition: Normal Orientation: AAOx4 [place] Coma Scale Eye Opening: Spontaneous [place] Coma Scale Verbal: Oriented [place] Coma Scale Motor: Obeys Commands [place] Coma Scale Total: 15 Speech: Normal Motor strength normal: LUE, RUE, LLE, RLE Sensory: Normal - Psychological Associated symptoms: Normal affect, Normal mood - Skin Skin Temperature: Warm Skin Moisture: Dry Skin Color: Normal Course - Re-evaluation Re-evalutation: 10/11/18 16:47 After patient was drawn twice for labs but unsuccessful, he decided he did not want any more treatment. Decided to leave AGAINST MEDICAL ADVICE. Patient maintains clear train of thought and has a normal Mini-Mental status exam. Patient was given the risks and benefits of refusing treatment at this time. I explained to him that he could have serious intra-abdominal pathology which would not be found if he leaves AGAINST MEDICAL ADVICE. Patient verbalized understanding of these instructions and the risks including worsening abdominal pain, infection, serious injury or even . Patient still chose to go home. I will give him some Zofran and I have advised him very to return if symptoms are getting worse. 10/11/18 17:28 - Vital Signs Vital signs: Temp Pulse Resp BP Pulse Ox 99.5 F 129 H 18 116/78 96 10/11/18 14:50 10/11/18 14:50 10/11/18 14:50 10/11/18 14:50 10/11/18 14:50 Discharge - Discharge Clinical Impression: Vomiting Qualifiers: Vomiting type: unspecified Vomiting Intractability: non-intractable Nausea presence: with nausea Qualified Code(s): R11.2 - Nausea with vomiting, unspecified Condition: Good Disposition: HOME, SELF-CARE Instructions: Nausea or Vomiting, Nonspecific ([facility]), Pancreatitis ([facility]) Additional Instructions: You decided to leave AGAINST MEDICAL ADVICE today. I am writing a prescription for Zofran however this does not explain why you are vomiting. In the event that you decide to come back and get another workup we will be here. If not, follow-up with your primary care providers. Follow a clear liquid diet for the next 48 hours. Advance diet as tolerated. Avoid alcohol. Avoid NSAIDs. Prescriptions: Ondansetron [Zofran Odt 4 mg Tablet] 1 - 2 tab PO Q4H PRN 3 Days #15 tab.rapdis PRN Reason: For Nausea/Vomiting Referrals: TIFFANIE MCLEAN PA [Primary Care Provider] - Follow up as needed
== END 2018-10-11 16:57 | disposition home or self-care (01) ==
LOC: ER 14:41
DX: R11.2 Nausea with vomiting, unspecified (principal); R10.13 Epigastric pain; R00.0 Tachycardia, unspecified; F17.200 Nicotine dependence, unspecified, uncomplicated; I25.10 Atherosclerotic heart disease of native coronary artery without angina pectoris; I10 Essential (primary) hypertension; J44.9 Chronic obstructive pulmonary disease, unspecified; E11.9 Type 2 diabetes mellitus without complications; Z87.19 Personal history of other diseases of the digestive system; Z91.018 Allergy to other foods; Z91.041 Radiographic dye allergy status; Z91.013 Allergy to seafood; Z90.49 Acquired absence of other specified parts of digestive tract; Z53.20 Procedure and treatment not carried out because of patient's decision for unspecified reasons
CPT/HCPCS: 99283; S0119

== ENCOUNTER 2018-12-15 16:04 | Emergency (ER) | payer OTHER ==
--- NOTE | 2018-12-15 17:16 | ER Document Report ---
ED Medical Screen (RME) - General Chief Complaint: Abdominal Pain Stated Complaint: VOMITING Time Seen by Provider: 12/15/18 17:09 Primary Care Provider: TIFFANIE MCLEAN PA [Primary Care Provider] - Follow up as needed Mode of Arrival: Medic Information source: Patient Notes: Patient presents complaining of upper abdominal pain with nausea vomiting diarrhea for the past 2 to 3 days. Patient is vomited twice and had diarrhea x3 episodes. Patient denies any fever or urinary symptoms. Patient does have a history of pancreatitis and suspects the same today. Patient reports a history of pancreatic pseudocyst without any surgical procedure. Patient has had a cholecystectomy as well. Patient does continue to use alcohol. I have greeted and performed a rapid initial assessment of this patient. A comprehensive ED assessment and evaluation of the patient, analysis of test results and completion of the medical decision making process will be conducted by additional ED providers. TRAVEL OUTSIDE OF THE [place] IN LAST 30 DAYS: No - Related Data Allergies/Adverse Reactions: coffee (Coffea arabica) [Coffee] Allergy (Verified 12/15/18 16:07) Iodinated Contrast- Oral and IV Dye [IV Dye, Iodine Containing] Allergy (Verified 12/15/18 16:07) iodine [Iodine] Allergy (Verified 12/15/18 16:07) Shellfish * [Shellfish] Allergy (Verified 12/15/18 16:07) Past Medical History - Past Medical History Cardiac Medical History: Reports: Hx Congestive Heart Failure, Hx Coronary Artery Disease, Hx Hypercholesterolemia, Hx Hypertension Denies: Hx Heart Attack Pulmonary Medical History: Reports: Hx COPD Denies: Hx Asthma Neurological Medical History: Reports: Hx Cerebrovascular Accident - NO DEFICITS. Denies: Hx Seizures Endocrine Medical History: Reports: Hx Diabetes Mellitus Type 1, Hx Diabetes Mellitus Type 2 Renal/ Medical History: Denies: Hx Peritoneal Dialysis GI Medical History: Reports: Hx Gastroesophageal Reflux Disease, Hx Hepatitis, Hx Hiatal Hernia. Denies: Hx Ulcer Musculoskeltal Medical History: Reports Hx Arthritis Psychiatric Medical History: Reports: Hx Anxiety, Hx Bipolar Disorder, Hx Depression Infectious Medical History: Reports: Hx Hepatitis, Hx HIV Past Surgical History: Reports: Hx Abdominal Surgery, Hx Cholecystectomy. Denies: Hx Open Heart Surgery, Hx Pacemaker - Immunizations Immunizations up to date: No Hx Diphtheria, Pertussis, Tetanus Vaccination: Yes History of Influenza Vaccine for 05/2017 - 10/2017 Season: No Physical Exam - Vital signs Vitals: Temp Pulse Resp BP Pulse Ox 98.9 F 108 H 16 159/98 H 97 12/15/18 16:16 12/15/18 16:16 12/15/18 16:16 12/15/18 16:16 12/15/18 16:16 - Abdominal Tenderness: Tender - epigastric Course - Vital Signs Vital signs: Temp Pulse Resp BP Pulse Ox 98.9 F 108 H 16 159/98 H 97 12/15/18 16:16 12/15/18 16:16 12/15/18 16:16 12/15/18 16:16 12/15/18 16:16 Doctor's Discharge - Discharge Referrals: TIFFANIE MCLEAN PA [Primary Care Provider] - Follow up as needed
[2018-12-15 18:09] LABS: ABSOLUTE LYMPHOCYTES (AUTO) 0.9 10^3/uL (0.5-4.7); ABSOLUTE MONOCYTES (AUTO) 0.4 10^3/uL (0.1-1.4); ABSOLUTE NEUT (AUTO) 4.9 10^3/uL (1.7-8.2); BASOPHILS % (AUTO) 0.3 % (0-2); EOSINOPHILS % (AUTO) 0.5 % (0-6); HEMATOCRIT 47.2 % (37.9-51.0); HEMOGLOBIN 15.5 g/dL (13.5-17.0); LYMPHOCYTES % (AUTO) 14.9 % (13-45); MEAN CORPUSCULAR HEMOGLOBIN 29.8 pg (27.0-33.4); MEAN CORPUSCULAR HGB CONC 32.8 g/dL (32.0-36.0); MEAN CORPUSCULAR VOLUME 91 fl (80-97); MONOCYTES % (AUTO) 6.5 % (3-13); PLATELET COUNT 273 10^3/uL (150-450); RED BLOOD COUNT 5.19 10^6/uL (4.35-5.55); RED CELL DISTRIBUTION WIDTH 15.1 % (11.5-14.0); SEGMENTED NEUTROPHILS % (AUTO) 77.8 % (42-78); TOTAL CELLS COUNTED % (AUTO) 100 %; WHITE BLOOD COUNT 6.2 10^3/uL (4.0-10.5)
[2018-12-15 18:15] LABS: APPEARANCE,URINE CLEAR; BILIRUBIN,URINE NEGATIVE (NEGATIVE); COLOR,URINE YELLOW; GLUCOSE, URINE NEGATIVE (NEGATIVE); KETONES,URINE 20 mg/dL (NEGATIVE); LEUKOCYTE ESTERASE,URINE NEGATIVE (NEGATIVE); NITRITE,URINE NEGATIVE (NEGATIVE); PROTEIN,URINE NEGATIVE (NEGATIVE); URINE SPECIFIC GRAVITY 1.015; UROBILINOGEN,URINE NEGATIVE mg/dL (<2.0)
[2018-12-15 18:30] LABS: ALANINE AMINOTRANSFERASE 29 U/L (21-72); ALBUMIN 4.7 g/dL (3.5-5.0); ALKALINE PHOSPHATASE 146 U/L (38-126); ANION GAP 12 (5-19); ASPARTATE AMINO TRANSFERASE 39 U/L (17-59); BILIRUBIN,DIRECT 0.4 mg/dL (0.0-0.4); BILIRUBIN,TOTAL 0.8 mg/dL (0.2-1.3); BLOOD UREA NITROGEN 7 mg/dL (7-20); CALCIUM 9.9 mg/dL (8.4-10.2); CARBON DIOXIDE 26 mmol/L (22-30); CHLORIDE 100 mmol/L (98-107); GLUCOSE 114 mg/dL (75-110); LIPASE 1043.1 U/L (23-300); SODIUM 138.3 mmol/L (137-145); TOTAL PROTEIN 8.9 g/dL (6.3-8.2)
[2018-12-15 18:36] LABS: ALCOHOL < 10 mg/dL (NONE DETECTED)
[2018-12-15] MEDS ORDERED: MORPHINE SULFATE 10 MG/ML INJ IV ONE ×2 (20:37→22:13)
[2018-12-15] MEDS ORDERED: NORMAL SALINE 1000 ML 1,000 ML IV ONE ×2 (20:37→22:14)
--- NOTE | 2018-12-15 20:44 | ER Document Report ---
ED GI/ - General Chief Complaint: Abdominal Pain Stated Complaint: VOMITING Time Seen by Provider: 12/15/18 17:09 Primary Care Provider: TIFFANIE MCLEAN PA [Primary Care Provider] - Follow up as needed Mode of Arrival: Medic TRAVEL OUTSIDE OF THE [place] IN LAST 30 DAYS: No - HPI Notes: 12/15/18 20:38 Patient is a 63-year-old male with a history of pancreatitis, hiatal hernia, acid reflux, hyperlipidemia and chronic low back pain who presents to the emergency department with a 4-day history of upper abdominal pain and diarrhea. Patient states that he has had similar pain in the past with his pancreatitis. States that the pain is located in his whole upper abdomen and feels like a constant aching. Patient states that he has vomited about 4 times over the past 4 days. Patient also reports having diarrhea 2-3 times per day. Patient denies fever but states having cold sweats. Patient denies chest pain. Patient states when the pain is intense he feels short of breath. Patient states he does have mild pain relief when holding his breath. Patient reports that he has a social drinker, reporting that the last time he drank was 1 week ago. She states he drinks about 2-3 times per week and usually on the weekends. Patient denies drug use. - Related Data Allergies/Adverse Reactions: coffee (Coffea arabica) [Coffee] Allergy (Verified 12/15/18 16:07) Iodinated Contrast- Oral and IV Dye [IV Dye, Iodine Containing] Allergy (Verified 12/15/18 16:07) iodine [Iodine] Allergy (Verified 12/15/18 16:07) Shellfish * [Shellfish] Allergy (Verified 12/15/18 16:07) Past Medical History - General Information source: Patient - Social History Smoking Status: Current Every Day Smoker Cigarette use (# per day): Yes - 2-3 cigarettes per day Chew tobacco use (# tins/day): No Smoking Education Provided: Yes Frequency of alcohol use: Social - Social drinker, reports drinking on the weekends. Last use one week ago. Drug Abuse: None Family History: Arthritis, CAD - Sister, DM, Hyperlipidemia, Hypertension Patient has suicidal ideation: No Patient has homicidal ideation: No - Past Medical History Cardiac Medical History: Reports: Hx Congestive Heart Failure, Hx Coronary Artery Disease, Hx Hypercholesterolemia, Hx Hypertension Denies: Hx Heart Attack Pulmonary Medical History: Reports: Hx COPD Denies: Hx Asthma Neurological Medical History: Reports: Hx Cerebrovascular Accident - NO DEFICITS . Denies: Hx Seizures Endocrine Medical History: Reports: Hx Diabetes Mellitus Type 1, Hx Diabetes Mellitus Type 2 Renal/ Medical History: Denies: Hx Peritoneal Dialysis GI Medical History: Reports: Hx Gastroesophageal Reflux Disease, Hx Hepatitis, Hx Hiatal Hernia. Denies: Hx Ulcer Musculoskeletal Medical History: Reports Hx Arthritis Psychiatric Medical History: Reports: Hx Anxiety, Hx Bipolar Disorder, Hx Depression Infectious Medical History: Reports: Hx Hepatitis, Hx HIV Past Surgical History: Reports: Hx Abdominal Surgery, Hx Cholecystectomy. Denies: Hx Open Heart Surgery, Hx Pacemaker - Immunizations Immunizations up to date: No Hx Diphtheria, Pertussis, Tetanus Vaccination: Yes Hx Pneumococcal Vaccination: 08/08/12 Review of Systems - Review of Systems Constitutional: See HPI EENT: No symptoms reported Cardiovascular: No symptoms reported Respiratory: See HPI Gastrointestinal: See HPI Genitourinary: No symptoms reported Male Genitourinary: No symptoms reported Musculoskeletal: No symptoms reported Skin: No symptoms reported Hematologic/Lymphatic: No symptoms reported Neurological/Psychological: No symptoms reported Physical Exam - Vital signs Vitals: Temp Pulse Resp BP Pulse Ox 98.9 F 108 H 16 159/98 H 97 12/15/18 16:16 12/15/18 16:16 12/15/18 16:16 12/15/18 16:16 12/15/18 16:16 Interpretation: Hypertensive, Tachycardic - Notes Notes: GENERAL: Well-appearing, well-nourished and in no acute distress. HEAD: Atraumatic, normocephalic. EYES: Pupils equal round and reactive to light, extraocular movements intact, sclera anicteric, conjunctiva are normal. ENT: TMs normal, nares patent, oropharynx clear without exudates. Moist mucous membranes. NECK: Normal range of motion, supple without lymphadenopathy or JVD. LUNGS: Breath sounds clear to auscultation bilaterally and equal. No wheezes rales or rhonchi. HEART: Regular rate and rhythm without murmurs, rubs or gallops. ABDOMEN: Round, soft but firm, upper abdominal tenderness primarily epigastric region. No guarding, no rebound. No masses appreciated. EXTREMITIES: Normal range of motion, no pitting or edema. No clubbing or cyanosis. NEUROLOGICAL: Cranial nerves II through XII grossly intact. Normal speech. PSYCH: Normal mood, normal affect. SKIN: Warm, Dry, normal turgor, no rashes or lesions noted. Course - Re-evaluation Re-evalutation: 12/15/18 20:43 Upon initial evaluation patient is resting comfortably. Patient continues to complain of upper abdominal pain rating it a 4 out of 5. Will give patient IV fluids, obtain urinalysis, give pain medication and order a CT scan. His lipase was elevated in over 1000. Will order CT abdomen without IV contrast due to patient's allergy. Patient states he is allergic to IVP dye which causes facial swelling. 12/15/18 22:00 2209: Spoke with Dr. Gagnon regarding possible admission. To give additional liter of fluid, attempt PO challenge and PO pain meds. If patient is able to tolerate this can be discharged. Will discuss this with my attending. Upon reevaluation patient reports that his pain level is slightly better but rating it a 4 out of 5. Patient is resting comfortably. Patient states that he has been unable to eat or tolerate fluids over the past few days due to the vomiting. Patient is just now receiving his second dose of pain medication as well as IV fluids. Will reevaluate after and see if patient is able to tolerate p.o. Patient requested a dose of Benadryl states that narcotics make him itch. 12/16/18 01:46 Patient has tolerated sips of alan nandini. Patient states that his pain is still a 4 out of 5. Will give a dose of p.o. nausea medicine as well as p.o. pain medication to see if patient's pain is controlled and can tolerate this. Upon reevaluation, patient tolerated p.o. nausea medicine as well as p.o. pain medication. Patient states that he does feel a little better and is aware that he will be on a clear liquid diet for the next 2 to 3 days. Patient is up and walking around the room, no acute distress, patient smiling. Patient is on strict return precautions and discussed with this with patient to include severe abdominal pain that is not controlled with the pain medication, uncontrollable vomiting, fever, abdominal swelling, or any other concerning signs or symptoms. I did discuss this case with Dr. Snyder including the patient's CT results, lab results and medications given. She agrees that since patient is tolerating p.o. pain medication as well as liquids he may be discharged home and placed on strict return precautions. - Vital Signs Vital signs: Temp Pulse Resp BP Pulse Ox 97.6 F 96 16 171/87 H 99 12/16/18 04:47 12/16/18 04:47 12/16/18 04:47 12/16/18 04:47 12/16/18 04:47 - Laboratory Result Diagrams: 12/15/18 17:55 12/15/18 17:55 Laboratory results interpreted by me: 12/15/18 12/15/18 12/15/18 17:35 17:55 17:55 RDW 15.1 H Glucose 114 H Alkaline Phosphatase 146 H Total Protein 8.9 H Lipase 1043.1 H Urine Ketones 20 H - Diagnostic Test Radiology reviewed: Reports reviewed - EKG Interpretation by Me Additional EKG results interpreted by me: 12/16/18 Patient's EKG shows a sinus rhythm with a heart rate of 90, normal axis deviation, no ST elevation or ectopy, VT 176, QT 368, QTc 458. Discharge - Discharge Clinical Impression: Pancreatitis, Vomiting, Abdominal pain Condition: Stable Disposition: HOME, SELF-CARE Instructions: Abdominal Pain ([facility]), Clear Liquid Diet ([facility]) Additional Instructions: You were seen in the emergency department for abdominal pain and vomiting. Your labs and CT were suggestive of possible pancreatitis. We have monitored you closely and you have been able to tolerate liquids and ice chips. Your pain has been controlled with pain medication by mouth. You may have pain for the next 48-72 hours. For the next 3 days you need to be on a clear liquid diet. I am prescribing you pain medication as well as nausea medication. Please take this as prescribed. Please return to the emergency department immediately if you develop fever, severe abdominal pain that is not controlled with medicine, uncontrollable vomiting, uncontrollable diarrhea, or any worsening signs or symptoms. Abdominal Pain There are many causes of abdominal pain. Pain can mean a serious problem requiring surgery (such as appendicitis). It can also be an innocent problem that goes away on its own (such as a viral infection). Often, time must pass to determine the cause of pain. The physician does not feel that hospitalization is necessary, at present. Things may change within the next 24 hours. Call the doctor or come back for re- examination if any problems occur, such as: (1) Pain that becomes more severe, steady, or becomes concentrated in one specific area. Also, pain that is more severe with movement or coughing. (2) Vomiting that persists or becomes more frequent. (3) Blood in the vomitus, urine, or bowel movements. Blood in the stool may have a tarry or black appearance. (4) Shaking chills or fever greater than 100 degrees F. (5) The abdomen becomes more distended or swollen. (6) Bowel movements cease. (7) Failure to improve as expected. Prescriptions: Oxycodone HCl/Acetaminophen [Percocet 5-325 mg Tablet] 1 tab PO Q4H PRN #10 tablet PRN Reason: Promethazine HCl [Phenergan 25 mg Tablet] 1 - 2 tab PO Q6H PRN #15 tablet PRN Reason: Referrals: TIFFANIE MCLEAN PA [Primary Care Provider] - Follow up as needed
--- NOTE | 2018-12-15 21:27 | RADIOLOGY REPORT (SQ) ---
EXAM DESCRIPTION: [facility]: CT ABDOMEN PELVIS WITHOUT IV CONTRAST CLINICAL HISTORY: 63 years Male; ABDOMINAL PAIN TECHNIQUE: CT of the abdomen and pelvis without contrast. All CT scans at this facility use dose modulation, iterative reconstruction, and/or weight based dosing when appropriate to reduce radiation dose to as low as reasonably achievable. COMPARISON: CT 07/12/2017 FINDINGS: Abdomen: Large hiatal hernia is again noted. No adjacent acute edema. Liver:No focal lesions. No intrahepatic ductal distention. Gallbladder: Surgically absent Pancreas: Surgical clips are again noted anterior and superior to the pancreatic head. Minimal stranding adjacent to the pancreatic head is noted, although similar to prior exam. Body and tail are unremarkable. Spleen:Within normal limits Right kidney:No hydronephrosis. No renal or ureteral calculi. Left kidney:No hydronephrosis. No renal or ureteral calculi. Adrenal glands:Within normal limits Vascular structures:Within normal limits (although limited evaluation on noncontrast exam). Pelvis: Small bowel: No acute mesenteric edema. There were a few mildly distended small bowel loops, but overall bowel diameter is normal. Appendix: Not reliably identified. No regional edema. Colon:No distention or acute pericolonic edema. No free intraperitoneal fluid or air. No pelvic mass or adenopathy There are mild chronic degenerative changes of the lumbar spine. No acute bone findings. Note that evaluation of the bowel and solid organs is somewhat limited due to lack of intravenous and oral contrast. IMPRESSION: 1. Mild stranding adjacent to the pancreatic head, possibly pancreatitis. Please correlate with clinical findings. 2. Previous cholecystectomy 3. No bowel obstruction or perforation.
[2018-12-15] MEDS ORDERED: DIPHENHYDRAMINE HCL 50 MG/ML VIAL IV ONE (22:13)
[2018-12-15] MEDS ORDERED: DIPHENHYDRAMINE HCL 25 MG CAPSULE PO ONE (22:16)
[2018-12-16] MEDS ORDERED: ONDANSETRON 4 MG TAB.RAPDIS PO ONE (01:46)
[2018-12-16] MEDS ORDERED: OXYCODONE HCL IR 5 MG TABLET PO ONE (01:46)
[2018-12-16 04:48] VITALS: BP 171/87
--- NOTE | 2018-12-16 07:59 | EKG REPORT ---
SEVERITY:- NORMAL ECG - SINUS RHYTHM : Confirmed by: Sara Williamson MD 16-Dec-2018 07:59:13
== END 2018-12-16 04:51 | disposition home or self-care (01) ==
LOC: ER 16:04
DX: K85.90 Acute pancreatitis without necrosis or infection, unspecified (principal); R11.2 Nausea with vomiting, unspecified; R10.13 Epigastric pain; R19.7 Diarrhea, unspecified; F17.210 Nicotine dependence, cigarettes, uncomplicated; I50.9 Heart failure, unspecified; I25.10 Atherosclerotic heart disease of native coronary artery without angina pectoris; E78.00 Pure hypercholesterolemia, unspecified; I11.0 Hypertensive heart disease with heart failure; E11.9 Type 2 diabetes mellitus without complications; B20 Human immunodeficiency virus [HIV] disease; Z86.73 Personal history of transient ischemic attack (TIA), and cerebral infarction without residual deficits; Z91.013 Allergy to seafood; Z90.49 Acquired absence of other specified parts of digestive tract
CPT/HCPCS: 93005; 96376; 99284; 96361; 96374; 36415; 80307; 83690; 85025; 80053; 81001; 74176; 93010; S0119; J2270; J7030

== ENCOUNTER 2019-01-31 11:18 | Emergency (ER) | payer OTHER ==
--- NOTE | 2019-01-31 11:49 | ER Document Report ---
ED Medical Screen (RME) - General Chief Complaint: Abdominal Pain Stated Complaint: STOMACH PAIN Time Seen by Provider: 01/31/19 11:44 Primary Care Provider: TIFFANIE MCLEAN PA [Primary Care Provider] - Follow up as needed Mode of Arrival: Ambulatory Information source: Patient Notes: Patient presents complaining of upper abdominal pain for the past 5 days. Patient reports nausea and vomiting. Patient does report chills. Patient also complains of constipation for the past 4 days. Patient denies any urinary symptoms. Patient reports chronic fast heart rate. hx: Hypertension, hyperlipidemia, COPD, chronic back pain, bipolar, CHF I have greeted and performed a rapid initial assessment of this patient. A comprehensive ED assessment and evaluation of the patient, analysis of test results and completion of the medical decision making process will be conducted by additional ED providers. TRAVEL OUTSIDE OF THE [place] IN LAST 30 DAYS: No - Related Data Allergies/Adverse Reactions: coffee (Coffea arabica) [Coffee] Allergy (Verified 01/31/19 11:20) Iodinated Contrast- Oral and IV Dye [IV Dye, Iodine Containing] Allergy (Verified 01/31/19 11:20) iodine [Iodine] Allergy (Verified 01/31/19 11:20) Shellfish * [Shellfish] Allergy (Verified 01/31/19 11:20) Past Medical History - Social History Frequency of alcohol use: Occasional Drug Abuse: Marijuana - Past Medical History Cardiac Medical History: Reports: Hx Congestive Heart Failure, Hx Coronary Artery Disease, Hx Hypercholesterolemia, Hx Hypertension Denies: Hx Heart Attack Pulmonary Medical History: Reports: Hx COPD Denies: Hx Asthma Neurological Medical History: Reports: Hx Cerebrovascular Accident - NO DEFICITS. Denies: Hx Seizures Endocrine Medical History: Reports: Hx Diabetes Mellitus Type 1, Hx Diabetes Mellitus Type 2 Renal/ Medical History: Denies: Hx Peritoneal Dialysis GI Medical History: Reports: Hx Gastroesophageal Reflux Disease, Hx Hepatitis, Hx Hiatal Hernia. Denies: Hx Ulcer Musculoskeltal Medical History: Reports Hx Arthritis Psychiatric Medical History: Reports: Hx Anxiety, Hx Bipolar Disorder, Hx Depression Infectious Medical History: Reports: Hx Hepatitis, Hx HIV Past Surgical History: Reports: Hx Abdominal Surgery, Hx Cholecystectomy. Denies: Hx Open Heart Surgery, Hx Pacemaker - Immunizations Immunizations up to date: No Hx Diphtheria, Pertussis, Tetanus Vaccination: Yes History of Influenza Vaccine for 05/2017 - 10/2017 Season: No Physical Exam - Vital signs Vitals: Temp Pulse Resp BP Pulse Ox 97.7 F 120 H 16 141/84 H 95 01/31/19 11:31 01/31/19 11:31 01/31/19 11:31 01/31/19 11:31 01/31/19 11:31 - Abdominal Bowel sounds: Hypoactive Tenderness: Tender - Generalized abdominal tenderness Course - Vital Signs Vital signs: Temp Pulse Resp BP Pulse Ox 97.7 F 120 H 16 141/84 H 95 01/31/19 11:31 01/31/19 11:31 01/31/19 11:31 01/31/19 11:31 01/31/19 11:31 Doctor's Discharge - Discharge Referrals: TIFFANIE MCLEAN PA [Primary Care Provider] - Follow up as needed
[2019-01-31] MEDS ORDERED: ONDANSETRON HCL INJ/PF 4 MG/2 ML SDV IV ONE ×2 (12:17→15:48)
[2019-01-31] MEDS ORDERED: FENTANYL CITRATE INJ/PF 100 MCG/2 ML AMPUL IV ONE (12:18)
--- NOTE | 2019-01-31 12:39 | RADIOLOGY REPORT (SQ) ---
EXAM DESCRIPTION: ACUTE ABDOMEN SERIES COMPLETED DATE/TIME: 01/31/2019 12:21 pm REASON FOR STUDY: abd pain, constipation COMPARISON: [facility] dated 10/13/2014 and chest x-ray dated 10/11/2014. NUMBER OF VIEWS: Three views. TECHNIQUE: Frontal chest, supine abdomen and upright/decubitus abdomen radiographic images acquired. LIMITATIONS: None. FINDINGS: CHEST: Faint nodular densities in the upper lobes, unchanged from prior chest x-ray in 201 5. Lungs clear of infiltrates. FREE AIR: None. No abnormal gas collections. BOWEL GAS PATTERN: Nonobstructive pattern. No dilated loops or air fluid levels. CALCIFICATIONS: No suspicious calcifications. HARDWARE: Surgical clips. SOFT TISSUES: No gross mass or suggestion of organomegaly. BONES: No acute fracture. No worrisome bone lesions. OTHER: No other significant finding. IMPRESSION: NO RADIOGRAPHIC EVIDENCE FOR ACUTE ABDOMINAL DISEASE. TECHNICAL DOCUMENTATION: JOB ID: [id number] [employer]- All Rights Reserved Reading location - IP/workstation name: [email or web address]
[2019-01-31 13:05] LABS: ABSOLUTE EOSINOPHILS # (AUTO) 0.1 10^3/uL (0.0-0.6); ABSOLUTE LYMPHOCYTES (AUTO) 0.8 10^3/uL (0.5-4.7); ABSOLUTE MONOCYTES (AUTO) 0.4 10^3/uL (0.1-1.4); ABSOLUTE NEUT (AUTO) 4.7 10^3/uL (1.7-8.2); BASOPHILS % (AUTO) 0.2 % (0-2); EOSINOPHILS % (AUTO) 1.2 % (0-6); HEMATOCRIT 42.1 % (37.9-51.0); HEMOGLOBIN 13.9 g/dL (13.5-17.0); LYMPHOCYTES % (AUTO) 13.8 % (13-45); MEAN CORPUSCULAR HEMOGLOBIN 29.3 pg (27.0-33.4); MEAN CORPUSCULAR VOLUME 89 fl (80-97); MONOCYTES % (AUTO) 7.2 % (3-13); PLATELET COUNT 217 10^3/uL (150-450); RED BLOOD COUNT 4.74 10^6/uL (4.35-5.55); RED CELL DISTRIBUTION WIDTH 16.2 % (11.5-14.0); SEGMENTED NEUTROPHILS % (AUTO) 77.6 % (42-78); TOTAL CELLS COUNTED % (AUTO) 100 %
[2019-01-31 13:33] LABS: ALANINE AMINOTRANSFERASE 20 U/L (21-72); ALBUMIN 4.6 g/dL (3.5-5.0); ALKALINE PHOSPHATASE 155 U/L (38-126); ANION GAP 10 (5-19); ASPARTATE AMINO TRANSFERASE 40 U/L (17-59); BILIRUBIN,DIRECT 0.5 mg/dL (0.0-0.4); BLOOD UREA NITROGEN 13 mg/dL (7-20); CALCIUM 9.7 mg/dL (8.4-10.2); CARBON DIOXIDE 27 mmol/L (22-30); CHLORIDE 105 mmol/L (98-107); GLUCOSE 101 mg/dL (75-110); LIPASE 1764.2 U/L (23-300); POTASSIUM 4.5 mmol/L (3.6-5.0); SODIUM 141.5 mmol/L (137-145)
[2019-01-31] MEDS ORDERED: MORPHINE SULFATE 10 MG/ML INJ IV ONE (15:47)
[2019-01-31] MEDS ORDERED: NORMAL SALINE 1000 ML 1,000 ML IV ONE (15:50)
[2019-01-31 16:23] LABS: APPEARANCE,URINE SLIGHTLY-CLOUDY; BILIRUBIN,URINE NEGATIVE (NEGATIVE); COLOR,URINE AMBER; GLUCOSE, URINE NEGATIVE (NEGATIVE); KETONES,URINE 20 mg/dL (NEGATIVE); LEUKOCYTE ESTERASE,URINE NEGATIVE (NEGATIVE); NITRITE,URINE NEGATIVE (NEGATIVE); PROTEIN,URINE 30 mg/dL (NEGATIVE); URINE SPECIFIC GRAVITY 1.021; UROBILINOGEN,URINE NEGATIVE mg/dL (<2.0)
--- NOTE | 2019-01-31 16:25 | RADIOLOGY REPORT (SQ) ---
EXAM DESCRIPTION: CT ABD/PELVIS NO ORAL OR IV COMPLETED DATE/TIME: 01/31/2019 4:10 pm REASON FOR STUDY: elevated lipase, abd pain COMPARISON: 12/15/2018. TECHNIQUE: CT scan of the abdomen and pelvis performed without intravenous or oral contrast. Images reviewed with lung, soft tissue, and bone windows. Reconstructed coronal and sagittal MPR images revi ewed. All images stored on PACS. All CT scanners at this facility use dose modulation, iterative reconstruction, and/or weight based d osing when appropriate to reduce radiation dose to as low as reasonably achievable (ALARA). [facility]: Dose Right [facility]: CareDose [facility]: Dose Right [facility]: Teradose 4D [facility]: Smart Jibbigo RADIATION DOSE: CT Rad equipment meets quality standard of care and radiation dose reduction techniq ues were employed. CTDIvol: 5.0 mGy. DLP: 272 mGy-cm.mGy. LIMITATIONS: None. FINDINGS: LOWER CHEST: No significant findings. No nodules or infiltrates. NON-CONTRASTED LIVER, SPLEEN, ADRENALS: Evaluation limited by lack of IV contrast. No identified sign ificant masses. PANCREAS: Indistinct blurring and edema in the peripancreatic tissues. The pancreatic head is diffic ult to visualize due to metallic artifact from adjacent surgical clips but there does appear to be in distinct thickening. No discrete fluid collection. The pancreatic duct is not dilated. GALLBLADDER: Surgically absent. RIGHT KIDNEY AND URETER: No suspicious masses. Assessment limited by lack of IV contrast. No signif icant calcifications. No hydronephrosis or hydroureter. LEFT KIDNEY AND URETER: No suspicious masses. Assessment limited by lack of IV contrast. No signifi cant calcifications. No hydronephrosis or hydroureter. AORTA AND RETROPERITONEUM: No aneurysm. No retroperitoneal masses or adenopathy. BOWEL AND PERITONEAL CAVITY: Large hiatal hernia. No obvious masses or inflammatory changes. No free fluid. APPENDIX: Normal. PELVIS, BLADDER, AND ABDOMINAL WALL:No abnormal masses. No free fluid. Bladder normal. BONES: No significant findings. OTHER: No other significant finding. IMPRESSION: 1. INFLAMMATORY CHANGES INVOLVING THE PANCREAS CONSISTENT WITH PANCREATITIS. NO FLUID COLLECTIONS. 2. LARGE HIATAL HERNIA, UNCHANGED FROM PRIOR STUDIES. 3. NO OTHER SIGNIFICANT OR ACUTE PROCESS IN THE ABDOMEN OR PELVIS. COMMENT: Quality ID # [id number]: Final reports with documentation of one or more dose reduction techniques (e.g., Automated exposure control, adjustment of the mA and/or kV according to patient size, use of iterative reconstruction technique) TECHNICAL DOCUMENTATION: JOB ID: [id number] [employer]- All Rights Reserved Reading location - IP/workstation name: [email or web address]
[2019-01-31 18:18] VITALS: BP 146/94
--- NOTE | 2019-01-31 18:40 | ER Document Report ---
ED General - General Chief Complaint: Abdominal Pain Stated Complaint: STOMACH PAIN Time Seen by Provider: 01/31/19 11:44 Primary Care Provider: HIEN TENA PA [Primary Care Provider] - Follow up as needed Mode of Arrival: Ambulatory TRAVEL OUTSIDE OF THE [place] IN LAST 30 DAYS: No - HPI Notes: 3-year-old male to the emergency department with complaints of upper abdominal pain that has been ongoing since last week with associated nausea and bilateral arm rash that has been ongoing for the past week as well. States his upper abdominal pain feels like the last time he had pancreatitis. States that he has not been drinking alcohol for about 8 months but just prior to his pain starting he ate 3 consecutive meals of fried pig's meat. He states that he has been told before not to eat excessively fatty foods but the pigs feet were so good that he could not help himself. Denies vomiting but does admit that he has had lack of appetite because every time he eats it hurts. Denies fevers, chills, chest pain, shortness of breath, urinary symptoms. States the rash to his arms itchy and his has been putting hydrogen peroxide on it with some benefit. Denies any recent change in toiletries, detergent, diet, outside contacts. - Related Data Allergies/Adverse Reactions: coffee (Coffea arabica) [Coffee] Allergy (Verified 01/31/19 11:20) Iodinated Contrast- Oral and IV Dye [IV Dye, Iodine Containing] Allergy (Verified 01/31/19 11:20) iodine [Iodine] Allergy (Verified 01/31/19 11:20) Shellfish * [Shellfish] Allergy (Verified 01/31/19 11:20) Past Medical History - General Information source: Patient - Social History Smoking Status: Current Every Day Smoker Frequency of alcohol use: Occasional Drug Abuse: Marijuana Family History: Arthritis, CAD - Sister, DM, Hyperlipidemia, Hypertension Patient has suicidal ideation: No Patient has homicidal ideation: No - Past Medical History Cardiac Medical History: Reports: Hx Congestive Heart Failure, Hx Coronary Artery Disease, Hx Hypercholesterolemia, Hx Hypertension Denies: Hx Heart Attack Pulmonary Medical History: Reports: Hx COPD Denies: Hx Asthma Neurological Medical History: Reports: Hx Cerebrovascular Accident - NO DEFICITS. Denies: Hx Seizures Endocrine Medical History: Reports: Hx Diabetes Mellitus Type 1, Hx Diabetes Mellitus Type 2 Renal/ Medical History: Denies: Hx Peritoneal Dialysis GI Medical History: Reports: Hx Gastroesophageal Reflux Disease, Hx Hepatitis, Hx Hiatal Hernia. Denies: Hx Ulcer Musculoskeletal Medical History: Reports Hx Arthritis Psychiatric Medical History: Reports: Hx Anxiety, Hx Bipolar Disorder, Hx Depression Infectious Medical History: Reports: Hx Hepatitis, Hx HIV Past Surgical History: Reports: Hx Abdominal Surgery, Hx Cholecystectomy. Denies: Hx Open Heart Surgery, Hx Pacemaker - Immunizations Immunizations up to date: No Hx Diphtheria, Pertussis, Tetanus Vaccination: Yes Hx Pneumococcal Vaccination: 08/08/12 Review of Systems - Review of Systems Constitutional: denies: Chills, Fever EENT: No symptoms reported Cardiovascular: denies: Chest pain, Palpitations, Dizziness, Lightheaded Respiratory: denies: Cough, Short of breath Gastrointestinal: Abdominal pain, Nausea, Poor appetite. denies: Diarrhea, Vomiting, Rectal bleeding Genitourinary: No symptoms reported Skin: Rash Hematologic/Lymphatic: No symptoms reported Neurological/Psychological: No symptoms reported -: Yes All other systems reviewed and negative Physical Exam - Vital signs Vitals: Temp Pulse Resp BP Pulse Ox 97.7 F 120 H 16 141/84 H 95 01/31/19 11:31 01/31/19 11:31 01/31/19 11:31 01/31/19 11:31 01/31/19 11:31 Selected Entries 01/31/19 01/31/19 18:00 18:01 Heart Rate ( 103 Monitors) Respiratory 13 Rate Blood Pressure 163/90 H O2 Sat by Pulse 99 Oximetry - General General appearance: Appears well, Alert - HEENT Head: Normocephalic, Atraumatic Eyes: Normal Pupils: PERRL - Respiratory Respiratory status: No respiratory distress Chest status: Nontender Breath sounds: Normal Chest palpation: Normal - Cardiovascular Rhythm: Regular Heart sounds: Normal auscultation Murmur: No - Abdominal Inspection: Normal Distension: No: Distended, Tympanitic, Fluid wave Bowel sounds: Normal Tenderness: Tender - Positive tenderness to palpation to the epigastrium. Negative Evans sign. No CVA tenderness. No: McBurney's point, Evans's sign, Guarding, Rebound Organomegaly: No organomegaly - Back Back: Normal, Nontender - Extremities General upper extremity: Normal inspection, Nontender, Normal color, Normal ROM, Normal temperature General lower extremity: Normal inspection, Nontender, Normal color, Normal ROM, Normal temperature, Normal weight bearing. No: Brandyn's sign - Neurological Neuro grossly intact: Yes Cognition: Normal Orientation: AAOx4 Sahara Coma Scale Eye Opening: Spontaneous Sawyer Coma Scale Verbal: Oriented Sawyer Coma Scale Motor: Obeys Commands Sawyer Coma Scale Total: 15 Speech: Normal Motor strength normal: LUE, RUE, LLE, RLE Sensory: Normal - Psychological Associated symptoms: Normal affect, Normal mood - Skin Skin Temperature: Warm Skin Moisture: Dry Skin Color: Normal Skin irregularity: Rash - there are multiple macules to the bilateral vental forearms with mild excoriations. No superimposed evidence of infection. No drainage, no induration, no evidence of abscess. No streaking erythema. Course - Re-evaluation Re-evalutation: 01/31/19 rounded on patient, he feels much better after pain medicine, antiemetics, and fluids. Discussed CT findings with him which is most consistent with a pancreatitis. He has had pancreatitis before. Likely that the fried pigs feet set this episode off. He would like to try a p.o. challenge and if he does well he would like to follow-up outpatient [facility] Hien Tena, tomorrow Rounded on patient: He has tolerated alan nandini well and states that he is still doing good. He would like to be discharged home. - Vital Signs Vital signs: Temp Pulse Resp BP Pulse Ox 97.9 F 120 H 17 146/94 H 99 01/31/19 13:00 01/31/19 11:31 01/31/19 18:15 01/31/19 18:15 01/31/19 18:01 01/31/19 20:46 Selected Entries 01/31/19 18:01 Heart Rate ( 105 Monitors) Respiratory 13 Rate Blood Pressure 163/90 H Blood Pressure 114 Mean O2 Sat by Pulse 99 Oximetry - Laboratory Result Diagrams: 01/31/19 12:52 01/31/19 12:52 Laboratory results interpreted by me: 01/31/19 01/31/19 01/31/19 12:52 12:52 16:00 RDW 16.2 H Direct Bilirubin 0.5 H ALT 20 L Alkaline Phosphatase 155 H Total Protein 9.0 H Lipase 1764.2 H Urine Protein 30 H Urine Ketones 20 H - Transfer of Care Notes: 01/31/19 Impression: Pancreatitis, upper abdominal pain, dermatitis. Noted CT reading. No leukocytosis, no fever, the rest of his labs are reassuring. Compared to prior lipase levels and they are similar to his prior episode of pancreatitis. He has tolerated a p.o. challenge here in the emergency department without any vomiting. He has had improvement of his vital signs since arrival after fluids, pain control, antiemetics. I have asked him to perform a clear liquid diet for the next 24 to 48 hours. I have also asked him to follow-up with his GI specialist at the [facility] tomorrow. We will send home with a small amount of pain medicine and antiemetics. I have encouraged him to return immediately if his symptoms worsen with worsening abdominal pain, intractable vomiting, fevers, yellowing of the skin. Patient agrees with the plan. As for his rash will discharge with cortisone cream and have him follow with his machine icer at the [facility] as well. Discharge - Discharge Clinical Impression: Pancreatitis, acute, Upper abdominal pain, Dermatitis Condition: Good Disposition: HOME, SELF-CARE Instructions: Pancreatitis ([facility]), Contact Dermatitis ([facility]) Additional Instructions: RETURN IMMEDIATELY IF INTRACTABLE VOMITING, WORSENING PAIN, FEVERS, YELLOWING OF THE SKIN, OR ANY OTHER CONCERNS. CALL HIEN TENA TOMORROW WITHOUT FAIL AT THE [facility]. Prescriptions: Ondansetron [Zofran Odt 4 mg Tablet] 1 - 2 tab PO Q4HP PRN #10 tab.rapdis PRN Reason: Hydrocortisone [Cortisone] 28 gm TP BID #1 tube Oxycodone HCl/Acetaminophen [Percocet 5-325 mg Tablet] 1 tab PO Q6H PRN #15 tab PRN Reason: Referrals: HIEN TENA PA [Primary Care Provider] - Follow up tomorrow
--- NOTE | 2019-01-31 22:11 | EKG REPORT ---
SEVERITY:- OTHERWISE NORMAL ECG - SINUS TACHYCARDIA : Confirmed by: Jena Munoz 31-Jan-2019 22:10:37
== END 2019-01-31 16:40 | disposition home or self-care (01) ==
LOC: ER 11:18
DX: K85.90 Acute pancreatitis without necrosis or infection, unspecified (principal); L30.9 Dermatitis, unspecified; R10.10 Upper abdominal pain, unspecified; R10.816 Epigastric abdominal tenderness; R11.0 Nausea; R63.0 Anorexia; I25.10 Atherosclerotic heart disease of native coronary artery without angina pectoris; I10 Essential (primary) hypertension; J44.9 Chronic obstructive pulmonary disease, unspecified; E11.9 Type 2 diabetes mellitus without complications; F17.200 Nicotine dependence, unspecified, uncomplicated; Z21 Asymptomatic human immunodeficiency virus [HIV] infection status; Z91.013 Allergy to seafood; Z91.040 Latex allergy status; Z91.018 Allergy to other foods; Z90.49 Acquired absence of other specified parts of digestive tract; Z87.19 Personal history of other diseases of the digestive system
CPT/HCPCS: 93005; 96376; 99284; 96361; 96374; 96375; 36415; 83605; 83690; 84443; 85025; 80053; 81001; 84484; 74022; 74176; 93010; J3010; J2270; J2405; J7030

== ENCOUNTER 2019-04-03 14:39 | Emergency (ER) | payer OTHER ==
--- NOTE | 2019-04-03 15:39 | ER Document Report ---
ED Medical Screen (RME) - General Chief Complaint: Abdominal Pain Stated Complaint: ABDOMINAL PAIN Time Seen by Provider: 04/03/19 15:26 Primary Care Provider: TIFFANIE MCLEAN PA [Primary Care Provider] - Follow up as needed Mode of Arrival: Wheelchair Information source: Patient Notes: This 63-year-old male presents emergency department with complaint abdominal pa in nausea vomiting for over 3 weeks. Reports history of pancreatitis. Also complains of a rash to his stomach and that is generalized to his trunk. Denies fever. Abdomen tender to palpate. I have greeted and performed a rapid initial assessment of this patient. A comprehensive ED assessment and evaluation of the patient, analysis of test results and completion of the medical decision making process will be conducted by additional ED providers. Dictation of this chart was performed using voice recognition software; therefore, there may be some unintended grammatical errors. TRAVEL OUTSIDE OF THE [place] IN LAST 30 DAYS: No - Related Data Allergies/Adverse Reactions: coffee (Coffea arabica) [Coffee] Allergy (Verified 04/03/19 14:41) Iodinated Contrast Media [IV Dye, Iodine Containing] Allergy (Verified 04/03/19 14:41) iodine [Iodine] Allergy (Verified 04/03/19 14:41) Shellfish * [Shellfish] Allergy (Verified 04/03/19 14:41) Past Medical History - Past Medical History Cardiac Medical History: Reports: Hx Congestive Heart Failure, Hx Coronary Artery Disease, Hx Hypercholesterolemia, Hx Hypertension Denies: Hx Heart Attack Pulmonary Medical History: Reports: Hx COPD Denies: Hx Asthma Neurological Medical History: Reports: Hx Cerebrovascular Accident - NO DEFICITS. Denies: Hx Seizures Endocrine Medical History: Reports: Hx Diabetes Mellitus Type 1, Hx Diabetes Mellitus Type 2 Renal/ Medical History: Denies: Hx Peritoneal Dialysis GI Medical History: Reports: Hx Gastroesophageal Reflux Disease, Hx Hepatitis, Hx Hiatal Hernia. Denies: Hx Ulcer Musculoskeltal Medical History: Reports Hx Arthritis Psychiatric Medical History: Reports: Hx Anxiety, Hx Bipolar Disorder, Hx Depression Infectious Medical History: Reports: Hx Hepatitis, Hx HIV Past Surgical History: Reports: Hx Abdominal Surgery, Hx Cholecystectomy. Denies: Hx Open Heart Surgery, Hx Pacemaker - Immunizations Immunizations up to date: No Hx Diphtheria, Pertussis, Tetanus Vaccination: Yes History of Influenza Vaccine for 05/2017 - 10/2017 Season: No Physical Exam - Vital signs Vitals: Temp Pulse Resp BP Pulse Ox 98.0 F 121 H 18 130/82 H 97 04/03/19 14:44 04/03/19 14:44 04/03/19 14:44 04/03/19 14:44 04/03/19 14:44 Course - Vital Signs Vital signs: Temp Pulse Resp BP Pulse Ox 98.0 F 121 H 18 130/82 H 97 04/03/19 14:44 04/03/19 14:44 04/03/19 14:44 04/03/19 14:44 04/03/19 14:44 Doctor's Discharge - Discharge Referrals: TIFFANIE MCLEAN PA [Primary Care Provider] - Follow up as needed
[2019-04-03 16:32] LABS: ABSOLUTE EOSINOPHILS # (AUTO) 0.1 10^3/uL (0.0-0.6); ABSOLUTE MONOCYTES (AUTO) 0.4 10^3/uL (0.1-1.4); BASOPHILS % (AUTO) 0.7 % (0-2); EOSINOPHILS % (AUTO) 2.3 % (0-6); HEMATOCRIT 46.3 % (37.9-51.0); HEMOGLOBIN 15.4 g/dL (13.5-17.0); LYMPHOCYTES % (AUTO) 21.6 % (13-45); MEAN CORPUSCULAR HEMOGLOBIN 30.2 pg (27.0-33.4); MEAN CORPUSCULAR HGB CONC 33.3 g/dL (32.0-36.0); MEAN CORPUSCULAR VOLUME 91 fl (80-97); PLATELET COUNT 306 10^3/uL (150-450); RED BLOOD COUNT 5.11 10^6/uL (4.35-5.55); RED CELL DISTRIBUTION WIDTH 16.3 % (11.5-14.0); SEGMENTED NEUTROPHILS % (AUTO) 67.4 % (42-78); TOTAL CELLS COUNTED % (AUTO) 100 %; WHITE BLOOD COUNT 4.5 10^3/uL (4.0-10.5)
[2019-04-03 16:40] LABS: APPEARANCE,URINE CLEAR; BILIRUBIN,URINE NEGATIVE (NEGATIVE); COLOR,URINE YELLOW; GLUCOSE, URINE NEGATIVE (NEGATIVE); KETONES,URINE 20 mg/dL (NEGATIVE); LEUKOCYTE ESTERASE,URINE NEGATIVE (NEGATIVE); NITRITE,URINE NEGATIVE (NEGATIVE); PROTEIN,URINE NEGATIVE (NEGATIVE); URINE SPECIFIC GRAVITY 1.017; UROBILINOGEN,URINE NEGATIVE mg/dL (<2.0)
[2019-04-03 17:03] LABS: ALBUMIN 4.6 g/dL (3.5-5.0); ALKALINE PHOSPHATASE 154 U/L (38-126); ANION GAP 11 (5-19); ASPARTATE AMINO TRANSFERASE 26 U/L (17-59); BILIRUBIN,DIRECT 0.4 mg/dL (0.0-0.4); BILIRUBIN,TOTAL 0.7 mg/dL (0.2-1.3); BLOOD UREA NITROGEN 8 mg/dL (7-20); CALCIUM 10.3 mg/dL (8.4-10.2); CARBON DIOXIDE 27 mmol/L (22-30); CHLORIDE 98 mmol/L (98-107); GLUCOSE 101 mg/dL (75-110); POTASSIUM 4.8 mmol/L (3.6-5.0); TOTAL PROTEIN 8.7 g/dL (6.3-8.2)
[2019-04-03 17:11] LABS: ALCOHOL < 10 mg/dL (NONE DETECTED)
[2019-04-03] MEDS ORDERED: NORMAL SALINE 1000 ML 1,000 ML IV ONE (18:34)
[2019-04-03] MEDS ORDERED: ONDANSETRON HCL INJ/PF 4 MG/2 ML SDV IV ONE (18:37)
[2019-04-03] MEDS ORDERED: MORPHINE SULFATE 10 MG/ML INJ IV ONE ×2 (18:37→21:46)
--- NOTE | 2019-04-03 18:40 | ER Document Report ---
ED GI/ - General Mode of Arrival: Wheelchair Information source: Patient TRAVEL OUTSIDE OF THE [place] IN LAST 30 DAYS: No - HPI Patient complains to provider of: Abdominal pain, Vomiting. No: Dysuria Onset: Last week Timing/Duration: Persistent Quality of pain: Achy Pain Level: 3 Location: Epigastric Associated symptoms: Nausea, Vomiting. denies: Chest pain, Diarrhea, Dizzy, Ur inary hesitancy, Urinary frequency, Urinary retention, Urinary urgency Exacerbated by: Denies Relieved by: Denies Similar symptoms previously: Yes Recently seen / treated by doctor: No <VAL TELLES - Last Filed: 04/03/19 20:41> <TERENCE DRUMMOND - Last Filed: 04/04/19 01:49> - General Chief Complaint: Abdominal Pain Stated Complaint: ABDOMINAL PAIN Time Seen by Provider: 04/03/19 15:26 Primary Care Provider: TIFFANIE MCLEAN PA [Primary Care Provider] - Follow up as needed Notes: She presents with a history of pancreatitis and suspects flareup today. Patient states that he had been drinking alcohol and beer about a week and a half ago. Patient states that he has had abdominal pain for the past 8 to 9 days and he stopped drinking alcohol and has not eaten much food over the past 4 days and attempts to manage his likely pancreatitis flareup. Patient does report vomiting 2 times today. No diarrhea. No fever. Patient also complains of pruritic skin rash to the abdomen and arm for the past 3 weeks. (VAL TELLES) - Related Data Allergies/Adverse Reactions: coffee (Coffea arabica) [Coffee] Allergy (Verified 04/03/19 14:41) Iodinated Contrast Media [IV Dye, Iodine Containing] Allergy (Verified 04/03/19 14:41) iodine [Iodine] Allergy (Verified 04/03/19 14:41) Shellfish * [Shellfish] Allergy (Verified 04/03/19 14:41) Past Medical History - General Information source: Patient - Social History Smoking Status: Current Every Day Smoker Frequency of alcohol use: Occasional Drug Abuse: Marijuana Occupation: None Lives with: Spouse/Significant other Family History: Arthritis, CAD - Sister, DM, Hyperlipidemia, Hypertension Patient has suicidal ideation: No Patient has homicidal ideation: No - Past Medical History Cardiac Medical History: Reports: Hx Congestive Heart Failure, Hx Coronary Artery Disease, Hx Hypercholesterolemia, Hx Hypertension Denies: Hx Heart Attack Pulmonary Medical History: Reports: Hx COPD Denies: Hx Asthma Neurological Medical History: Reports: Hx Cerebrovascular Accident - NO DEFICITS. Denies: Hx Seizures Endocrine Medical History: Reports: Hx Diabetes Mellitus Type 1, Hx Diabetes Mellitus Type 2 Renal/ Medical History: Denies: Hx Peritoneal Dialysis GI Medical History: Reports: Hx Gastroesophageal Reflux Disease, Hx Hepatitis, Hx Hiatal Hernia, Hx Pancreatitis. Denies: Hx Ulcer Musculoskeletal Medical History: Reports Hx Arthritis Psychiatric Medical History: Reports: Hx Anxiety, Hx Bipolar Disorder, Hx Depression Infectious Medical History: Reports: Hx Hepatitis, Hx HIV Past Surgical History: Reports: Hx Abdominal Surgery, Hx Cholecystectomy. Denies: Hx Open Heart Surgery, Hx Pacemaker - Immunizations Immunizations up to date: No Hx Diphtheria, Pertussis, Tetanus Vaccination: Yes Hx Pneumococcal Vaccination: 08/08/12 <VAL TELLES - Last Filed: 04/03/19 20:41> Review of Systems - Review of Systems Constitutional: No symptoms reported. denies: Fever, Recent illness EENT: No symptoms reported Cardiovascular: No symptoms reported. denies: Chest pain, Syncope, Dizziness Respiratory: No symptoms reported. denies: Cough, Short of breath Gastrointestinal: Abdominal pain, Nausea, Vomiting. denies: Diarrhea Genitourinary: No symptoms reported. denies: Dysuria, Flank pain Male Genitourinary: No symptoms reported Musculoskeletal: No symptoms reported. denies: Back pain Skin: Rash Hematologic/Lymphatic: No symptoms reported Neurological/Psychological: No symptoms reported <VAL TELLES - Last Filed: 04/03/19 20:41> Physical Exam - General General appearance: Appears well, Alert In distress: None - HEENT Head: Normocephalic, Atraumatic Eyes: Normal Conjunctiva: Normal Nasal: Normal Mouth/Lips: Normal Mucous membranes: Normal Neck: Normal, Supple - Respiratory Respiratory status: No respiratory distress Chest status: Nontender Breath sounds: Normal Chest palpation: Normal - Cardiovascular Rhythm: Regular Heart sounds: S1 appreciated, S2 appreciated - Abdominal Inspection: Normal Distension: No distension Bowel sounds: Normal Tenderness: Tender - epigastric Organomegaly: No organomegaly - Back Back: Normal, Nontender. No: CVA tenderness - Extremities General upper extremity: Normal inspection, Normal ROM General lower extremity: Normal inspection, Normal ROM - Neurological Neuro grossly intact: Yes Cognition: Normal Sahara Coma Scale Eye Opening: Spontaneous Sahara Coma Scale Verbal: Oriented Houck Coma Scale Motor: Obeys Commands Sahara Coma Scale Total: 15 - Psychological Associated symptoms: Normal affect, Normal mood - Skin Skin Temperature: Warm Skin Moisture: Dry Skin irregularity: Rash - Dry scaling rash to abdomen, right antecubital area and around his neck. <VAL TELLES - Last Filed: 04/03/19 20:41> - Vital signs Vitals: Temp Pulse Resp BP Pulse Ox 98.0 F 121 H 18 130/82 H 97 04/03/19 14:44 04/03/19 14:44 04/03/19 14:44 04/03/19 14:44 04/03/19 14:44 Course - Laboratory Result Diagrams: 04/03/19 16:17 04/03/19 16:17 - EKG Interpretation by Me EKG shows normal: Sinus rhythm Rate: Tachycardia When compared to previous EKG there are: No significant change <VAL TELLES - Last Filed: 04/03/19 20:41> - Laboratory Result Diagrams: 04/03/19 16:17 04/03/19 16:17 <TERENCE DRUMMOND - Last Filed: 04/04/19 01:49> - Re-evaluation Re-evalutation: 04/03/19 18:49 Consulted with regarding patient presentation and diagnostic evaluation. Agrees with plan for deferring any CT imaging at this time. Patient has had 11 CT scans over the past 4 years for his pancreatitis. Patient without any symptoms worrisome for an acute abdomen. No peritoneal signs at this time. 04/03/19 20:00 Patient states pain is manageable at this time but states that typically he requires pain medicine every 4-6 hours. Patient states nausea is resolved at this time but does not trust that he can take oral fluids at this time. Patient's IV fluids continue to infuse at this time. Patient states that since it is already 8 PM he is unable to drive after dark and he will likely need to be admitted. 04/03/19 20:41 Bedside report and handoff given to JERRELL Mccann (VAL TELLES) 04/04/19 01:45 Patient signed out to me by BILLING AND ACCOUNTING STAFF ASSISTANT Koki at the end of her shift pending patient was pain and nausea controlled and tolerating p.o. I did order Phenergan, GI cocktail, and another round of morphine for him and he was p.o. challenged and t he passed and had no further vomiting and felt much better and would like to go home. I did discharge him with a few Zofran and Vicodin. gave medication precautions. He has only received 2 scripts of Percocet in the last 2 years upon review of the [place] drug database. Advised him to keep a clear liquid diet and slowly advance as tolerated. His abdomen remains benign on serial re-exams. advised to follow-up with his PCP in 1 to 2 days or return to the ED with worsening symptoms. Patient understands and agrees with plan. All questions answered at discharge. This was my only involvement in patient care. Please refer to EDGAR Telles's note for full details of the visit. (TERENCE DRUMMOND) - Vital Signs Vital signs: Temp Pulse Resp BP Pulse Ox 98.1 F 103 H 16 150/83 H 96 04/03/19 23:03 04/03/19 23:03 04/03/19 23:03 04/03/19 23:03 04/03/19 23:03 - Laboratory Laboratory results interpreted by me: 04/03/19 04/03/19 04/03/19 16:17 16:17 16:17 RDW 16.3 H Sodium 136.4 L Calcium 10.3 H Alkaline Phosphatase 154 H Total Protein 8.7 H Lipase 515.0 H Urine Ketones 20 H 04/03/19 20:00 Labs- Entire Visit 04/03/19 04/03/19 04/03/19 16:17 16:17 16:17 WBC 4.5 RBC 5.11 Hgb 15.4 Hct 46.3 MCV 91 MCH 30.2 MCHC 33.3 RDW 16.3 H Plt Count 306 Lymph % (Auto) 21.6 Mcduffie % (Auto) 8.0 Eos % (Auto) 2.3 Baso % (Auto) 0.7 Absolute Neuts (auto) 3.0 Absolute Lymphs (auto) 1.0 Absolute Monos (auto) 0.4 Absolute Eos (auto) 0.1 Absolute Basos (auto) 0.0 Seg Neutrophils % 67.4 Sodium 136.4 L Potassium 4.8 Chloride 98 Carbon Dioxide 27 Anion Gap 11 BUN 8 Creatinine 1.12 Est GFR ( Amer) > 60 Est GFR (MDRD) Non-Af > 60 Glucose 101 Calcium 10.3 H Total Bilirubin 0.7 Direct Bilirubin 0.4 Neonat Total Bilirubin Not Reportable Neonat Direct Bilirubin Not Reportable Neonat Indirect Bili Not Reportable AST 26 ALT 14 Alkaline Phosphatase 154 H Total Protein 8.7 H Albumin 4.6 Lipase 515.0 H Urine Color YELLOW Urine Appearance CLEAR Urine pH 6.0 Ur Specific [place] 1.017 Urine Protein NEGATIVE Urine Glucose (UA) NEGATIVE Urine Ketones 20 H Urine Blood NEGATIVE Urine Nitrite NEGATIVE Urine Bilirubin NEGATIVE Urine Urobilinogen NEGATIVE Ur Leukocyte Esterase NEGATIVE Urine WBC (Auto) 1 Urine RBC (Auto) 1 U Hyaline Cast (Auto) 4 Urine Mucus (Auto) FEW Urine Ascorbic Acid NEGATIVE Serum Alcohol < 10 (VAL TELLES) - EKG Interpretation by Me Additional EKG results interpreted by me: 04/03/19 19:[address] elevation, no T wave inversion, QTC 450 (VAL TELLES) Discharge <VAL TELLES - Last Filed: 04/03/19 20:41> <TERENCE DRUMMOND - Last Filed: 04/04/19 01:49> - Discharge Clinical Impression: History of alcohol use, Dermatitis Pancreatitis Qualifiers: Chronicity: acute Pancreatitis type: alcohol induced Acute pancreatitis complication: unspecified Qualified Code(s): K85.20 - Alcohol induced acute pancreatitis without necrosis or infection Condition: Good Disposition: HOME, SELF-CARE Instructions: Abdominal Pain ([facility]), Intravenous (IV) Fluids ([facility]), Pancreatitis ([facility]), Topical Steroid Cream or Ointment ([facility]) Additional Instructions: Follow-up with your PCP in 1 to 2 days. Return for any worsening symptoms. do not take tylenol, drive, operate machinery, or work while taking the pain meds. clear liquid diet, then advance as tolerated. take the medication as prescribed. Prescriptions: Ondansetron HCl [Zofran 4 mg Tablet] 1 tab PO Q8HP PRN #14 tablet PRN Reason: For Nausea/Vomiting Hydrocodone/Acetaminophen [Luverne 5-325 mg Tablet] 1 tab PO Q6 PRN #12 tablet PRN Reason: For Pain Referrals: TIFFANIE MCLEAN PA [Primary Care Provider] - Follow up as needed
--- NOTE | 2019-04-03 19:08 | EKG REPORT ---
SEVERITY:- OTHERWISE NORMAL ECG - SINUS TACHYCARDIA : Confirmed by: Davis Samayoa MD 03-Apr-2019 19:07:49
[2019-04-03] MEDS ORDERED: LIDOCAINE 2% VISCOUS SOLN 20 ML UDCUP PO ONE (21:46)
[2019-04-03] MEDS ORDERED: MAG HYDROX/AL HYDROX/SIMETH SUSP 30 ML UDCUP PO ONE (21:46)
[2019-04-03] MEDS ORDERED: PROMETHAZINE HCL INJ 50 MG/1 ML VIAL IM ONE (21:47)
[2019-04-03] MEDS: PROMETHAZINE HCL INJ 25 MG/1 ML VIAL IM ONE ×2 (22:09→22:11)
[2019-04-03 23:05] VITALS: BP 150/83
== END 2019-04-03 23:05 | disposition home or self-care (01) ==
LOC: ER 14:39
DX: K85.20 Alcohol induced acute pancreatitis without necrosis or infection (principal); L30.9 Dermatitis, unspecified; R11.2 Nausea with vomiting, unspecified; R10.9 Unspecified abdominal pain; F17.200 Nicotine dependence, unspecified, uncomplicated; B20 Human immunodeficiency virus [HIV] disease; I11.0 Hypertensive heart disease with heart failure; I50.9 Heart failure, unspecified; I25.10 Atherosclerotic heart disease of native coronary artery without angina pectoris; E78.00 Pure hypercholesterolemia, unspecified; E11.9 Type 2 diabetes mellitus without complications; Z86.73 Personal history of transient ischemic attack (TIA), and cerebral infarction without residual deficits; Z90.49 Acquired absence of other specified parts of digestive tract
CPT/HCPCS: 93005; 96376; 99284; 96361; 96374; 96375; 36415; 80307; 83690; 85025; 80053; 81001; 93010; J3490; J2270; J2405; J7030; J2550

== ENCOUNTER 2019-05-31 12:16 | Emergency (ER) | payer OTHER ==
[2019-05-31] MEDS ORDERED: NORMAL SALINE 1000 ML 1,000 ML IV ONE ×2 (13:08→16:14)
[2019-05-31] MEDS ORDERED: ONDANSETRON HCL INJ/PF 4 MG/2 ML SDV IV ONE (13:08)
[2019-05-31] MEDS ORDERED: MORPHINE SULFATE 10 MG/ML INJ IV ONE (13:08)
--- NOTE | 2019-05-31 13:10 | ER Document Report ---
ED Medical Screen (RME) - General Chief Complaint: Vomiting Stated Complaint: VOMITING Time Seen by Provider: 05/31/19 13:06 Primary Care Provider: TIFFANIE MCLEAN PA [Primary Care Provider] - Follow up as needed Mode of Arrival: Wheelchair Information source: Patient Notes: Patient is expecting present with nausea, vomiting, diarrhea, fever for the last 3 days. Patient reports he has a history of pancreatitis. Patient also reports left lower quadrant abdominal pain. Tenderness to palpation of left lower quadrant. I have greeted and performed a rapid initial assessment of this patient. A comprehensive ED assessment and evaluation of the patient, analysis of test results and completion of the medical decision making process will be conducted by additional ED providers. I have specifically instructed the patient or family members with the patient to immediately return to any nursing staff should anything change in the patient's condition or with their chief complaint. This medical record was dictated with voice recognizing software. There may be grammatical, syntax errors that are unintended. TRAVEL OUTSIDE OF THE [place] IN LAST 30 DAYS: No - Related Data Allergies/Adverse Reactions: coffee (Coffea arabica) [Coffee] Allergy (Verified 05/31/19 13:07) Iodinated Contrast Media [IV Dye, Iodine Containing] Allergy (Verified 05/31/19 13:07) iodine [Iodine] Allergy (Verified 05/31/19 13:07) Shellfish * [Shellfish] Allergy (Verified 05/31/19 13:07) Past Medical History - Past Medical History Cardiac Medical History: Reports: Hx Congestive Heart Failure, Hx Coronary Artery Disease, Hx Hypercholesterolemia, Hx Hypertension Denies: Hx Heart Attack Pulmonary Medical History: Reports: Hx COPD Denies: Hx Asthma Neurological Medical History: Reports: Hx Cerebrovascular Accident - NO DEFICITS. Denies: Hx Seizures Endocrine Medical History: Reports: Hx Diabetes Mellitus Type 1, Hx Diabetes Mellitus Type 2 Renal/ Medical History: Denies: Hx Peritoneal Dialysis GI Medical History: Reports: Hx Gastroesophageal Reflux Disease, Hx Hepatitis, Hx Hiatal Hernia, Hx Pancreatitis. Denies: Hx Ulcer Musculoskeltal Medical History: Reports Hx Arthritis Psychiatric Medical History: Reports: Hx Anxiety, Hx Bipolar Disorder, Hx Depression Infectious Medical History: Reports: Hx Hepatitis, Hx HIV Past Surgical History: Reports: Hx Abdominal Surgery, Hx Cholecystectomy. Renan es: Hx Open Heart Surgery, Hx Pacemaker - Immunizations Immunizations up to date: No Hx Diphtheria, Pertussis, Tetanus Vaccination: Yes Physical Exam - Vital signs Vitals: Temp Pulse Resp BP Pulse Ox 98.2 F 115 H 16 166/98 H 97 05/31/19 12:30 05/31/19 12:30 05/31/19 12:30 05/31/19 12:30 05/31/19 12:30 Course - Vital Signs Vital signs: Temp Pulse Resp BP Pulse Ox 98.2 F 115 H 16 166/98 H 97 05/31/19 12:30 05/31/19 12:30 05/31/19 12:30 05/31/19 12:30 05/31/19 12:30 Doctor's Discharge - Discharge Referrals: TIFFANIE MCLEAN PA [Primary Care Provider] - Follow up as needed
[2019-05-31 14:04] LABS: APPEARANCE,URINE CLEAR; BILIRUBIN,URINE NEGATIVE (NEGATIVE); COLOR,URINE YELLOW; GLUCOSE, URINE 50 mg/dL (NEGATIVE); KETONES,URINE TRACE mg/dL (NEGATIVE); LEUKOCYTE ESTERASE,URINE NEGATIVE (NEGATIVE); NITRITE,URINE NEGATIVE (NEGATIVE); PROTEIN,URINE NEGATIVE (NEGATIVE); URINE SPECIFIC GRAVITY 1.015
[2019-05-31 14:28] LABS: ABSOLUTE EOSINOPHILS # (AUTO) 0.1 10^3/uL (0.0-0.6); ABSOLUTE LYMPHOCYTES (AUTO) 0.6 10^3/uL (0.5-4.7); ABSOLUTE MONOCYTES (AUTO) 0.3 10^3/uL (0.1-1.4); ABSOLUTE NEUT (AUTO) 2.3 10^3/uL (1.7-8.2); BASOPHILS % (AUTO) 0.6 % (0-2); EOSINOPHILS % (AUTO) 2.2 % (0-6); HEMATOCRIT 42.6 % (37.9-51.0); HEMOGLOBIN 13.7 g/dL (13.5-17.0); LYMPHOCYTES % (AUTO) 18.9 % (13-45); MEAN CORPUSCULAR HEMOGLOBIN 29.3 pg (27.0-33.4); MEAN CORPUSCULAR HGB CONC 32.2 g/dL (32.0-36.0); MEAN CORPUSCULAR VOLUME 91 fl (80-97); MONOCYTES % (AUTO) 8.6 % (3-13); PLATELET COUNT 235 10^3/uL (150-450); RED BLOOD COUNT 4.68 10^6/uL (4.35-5.55); RED CELL DISTRIBUTION WIDTH 16.2 % (11.5-14.0); SEGMENTED NEUTROPHILS % (AUTO) 69.7 % (42-78); TOTAL CELLS COUNTED % (AUTO) 100 %; WHITE BLOOD COUNT 3.3 10^3/uL (4.0-10.5)
[2019-05-31 14:33] LABS: ALBUMIN 4.2 g/dL (3.5-5.0); ALKALINE PHOSPHATASE 157 U/L (38-126); ANION GAP 8 (5-19); ASPARTATE AMINO TRANSFERASE 38 U/L (17-59); BILIRUBIN,DIRECT 0.2 mg/dL (0.0-0.4); BILIRUBIN,TOTAL 0.7 mg/dL (0.2-1.3); BLOOD UREA NITROGEN 8 mg/dL (7-20); CALCIUM 9.8 mg/dL (8.4-10.2); CARBON DIOXIDE 29 mmol/L (22-30); CHLORIDE 101 mmol/L (98-107); GLUCOSE 93 mg/dL (75-110); POTASSIUM 4.3 mmol/L (3.6-5.0); TOTAL PROTEIN 8.3 g/dL (6.3-8.2)
[2019-05-31 14:54] LABS: URINE AMPHETAMINES SCREEN NEGATIVE; URINE BARBITURATES SCREEN NEGATIVE; URINE BENZODIAZEPINES SCREEN NEGATIVE; URINE COCAINE SCREEN NEGATIVE; URINE MARIJUANA (THC) SCREEN UNCONFIRMED POSITIVE; URINE METHADONE SCREEN NEGATIVE; URINE PHENCYCLIDINE SCREEN NEGATIVE
--- NOTE | 2019-05-31 16:07 | ER Document Report ---
ED General - General Chief Complaint: Nausea/Vomiting Stated Complaint: VOMITING Time Seen by Provider: 05/31/19 13:06 Primary Care Provider: TIFFANIE MCLEAN PA [Primary Care Provider] - Follow up as needed Mode of Arrival: Wheelchair Notes: Patient is a 63-year-old male with history of pancreatitis that presents to the emergency department for chief complaint of epigastric abdominal pain. Patient states the past several days she is been having worsening epigastric abdominal pain, nausea, vomiting diarrhea. He has a history of pancreatitis, alcohol induced, and periodically will have flareups of it. He currently rates his pain as a 3 out of 10, and described his pain as a sharp sensation in the epigastric region, radiating to the back, and was improved after receiving morphine ordered in triage. His nausea has resolved as well, no further vomiting. He denies noting any blood in the vomit or in the diarrhea. He states he does still drink alcohol at times, and likely this is what is flaring up his pancreatitis. He reports he has an appoint with the [facility] tomorrow, for follow-up. Past Medical History: Pancreatitis, hiatal hernia Past Surgical History: Denies any recent or pertinent surgical history Social History: Admits to smoking, and uses marijuana as well as alcohol. Family History: Reviewed and noncontributory for presenting illness Allergies: Reviewed, see documented allergy list. REVIEW OF SYSTEMS: Other than noted above, the 12 point review of systems was reviewed with the patient and were negative, all pertinent findings are included in the HPI. PHYSICAL EXAMINATION: Vital signs reviewed, nursing noted reviewed. GENERAL: Patient appears to be in mild pain, but no acute distress. HEAD: Atraumatic, normocephalic. EYES: Eyes appear normal, extraocular movements intact, sclera anicteric, conjunctiva are normal. ENT: nares patent, oropharynx clear without exudates. Moist mucous membranes. NECK: Normal range of motion, supple without lymphadenopathy LUNGS: Breath sounds clear to auscultation bilaterally and equal. No wheezes rales or rhonchi. HEART: R rate tachycardic, regular rhythm, no audible murmur. ABDOMEN: Soft, epigastric tenderness to palpation, mild lower abdominal tenderness to palpation, but nonfocal., normoactive bowel sounds. No rebound, guarding, or rigidity. No masses appreciated. EXTREMITIES: Nontender, good range of motion, no pitting or edema. NEUROLOGICAL: No focal neurological deficits. Moves all extremities spontaneously Motor and sensory grossly intact on exam. PSYCH: Normal mood, normal affect. SKIN: Warm, Dry, normal turgor, no rashes or lesions noted on exposed skin TRAVEL OUTSIDE OF THE [place] IN LAST 30 DAYS: No - Related Data Allergies/Adverse Reactions: coffee (Coffea arabica) [Coffee] Allergy (Verified 05/31/19 13:07) Iodinated Contrast Media [IV Dye, Iodine Containing] Allergy (Verified 05/31/19 13:07) iodine [Iodine] Allergy (Verified 05/31/19 13:07) Shellfish * [Shellfish] Allergy (Verified 05/31/19 13:07) Past Medical History - General Information source: Patient - Social History Smoking Status: Current Every Day Smoker Chew tobacco use (# tins/day): No Drug Abuse: None Family History: Arthritis, CAD - Sister, DM, Hyperlipidemia, Hypertension Patient has suicidal ideation: No Patient has homicidal ideation: No - Past Medical History Cardiac Medical History: Reports: Hx Congestive Heart Failure, Hx Coronary Artery Disease, Hx Hypercholesterolemia, Hx Hypertension Denies: Hx Heart Attack Pulmonary Medical History: Reports: Hx COPD Denies: Hx Asthma Neurological Medical History: Reports: Hx Cerebrovascular Accident - NO DEFICITS. Denies: Hx Seizures Endocrine Medical History: Reports: Hx Diabetes Mellitus Type 1, Hx Diabetes Mellitus Type 2 Renal/ Medical History: Denies: Hx Peritoneal Dialysis GI Medical History: Reports: Hx Gastroesophageal Reflux Disease, Hx Hepatitis, Hx Hiatal Hernia, Hx Pancreatitis. Denies: Hx Ulcer Musculoskeletal Medical History: Reports Hx Arthritis Psychiatric Medical History: Reports: Hx Anxiety, Hx Bipolar Disorder, Hx Depression Infectious Medical History: Reports: Hx Hepatitis, Hx HIV Past Surgical History: Reports: Hx Abdominal Surgery, Hx Cholecystectomy. Denies: Hx Open Heart Surgery, Hx Pacemaker - Immunizations Immunizations up to date: No Hx Diphtheria, Pertussis, Tetanus Vaccination: Yes Hx Pneumococcal Vaccination: 08/08/12 Physical Exam - Vital signs Vitals: Temp Pulse Resp BP Pulse Ox 98.2 F 115 H 16 166/98 H 97 05/31/19 12:30 05/31/19 12:30 05/31/19 12:30 05/31/19 12:30 05/31/19 12:30 Course - Re-evaluation Re-evalutation: Patient seen and examined vital signs reviewed. Laboratory data and/or imaging were ordered as appropriate for the patient's presenting symptoms and complaint, with consideration of any critical or life threatening conditions that may be associated with their obtained history and exam as noted above. Patient was treated with IV fluids, morphine and Zofran Results were reviewed when available and demonstrated elevated lipase, just under 700, his blood work was otherwise unremarkable The patient was re-evaluated and was improved, he treated with additional pain medication and fluids, the patient did feel comfortable being discharged home Evaluation was most consistent with acute pancreatitis were discharged home with oxycodone and Zofran and [facility]. Results were discussed with the patient at this point, after careful consideration I feel that that patient can be discharged from the emergency dep artment, the patient was educated treatments and reasons to return to the emergency department based on their presumed diagnosis as noted above, they were advised to followup with a primary care physician in 2-3 days. Patient was agreeable to plan of care. *Note is created using voice recognition software and may contain spelling, syntax or grammatical errors. Laboratory 05/31/19 05/31/19 05/31/19 13:29 13:29 14:00 WBC 3.3 L RBC 4.68 Hgb 13.7 Hct 42.6 MCV 91 MCH 29.3 MCHC 32.2 RDW 16.2 H Plt Count 235 Lymph % (Auto) 18.9 [place] % (Auto) 8.6 Eos % (Auto) 2.2 Baso % (Auto) 0.6 Absolute Neuts (auto) 2.3 Absolute Lymphs (auto) 0.6 Absolute Monos (auto) 0.3 Absolute Eos (auto) 0.1 Absolute Basos (auto) 0.0 Seg Neutrophils % 69.7 Sodium Potassium Chloride Carbon Dioxide Anion Gap BUN Creatinine Est GFR ( Amer) Est GFR (MDRD) Non-Af Glucose Calcium Total Bilirubin Direct Bilirubin Neonat Total Bilirubin Neonat Direct Bilirubin Neonat Indirect Bili AST ALT Alkaline Phosphatase Total Protein Albumin Lipase Urine Color YELLOW Urine Appearance CLEAR Urine pH 7.0 Ur Specific [place] 1.015 Urine Protein NEGATIVE Urine Glucose (UA) 50 H Urine Ketones TRACE H Urine Blood NEGATIVE Urine Nitrite NEGATIVE Urine Bilirubin NEGATIVE Urine Urobilinogen 2.0 H Ur Leukocyte Esterase NEGATIVE Urine WBC (Auto) 0 Urine RBC (Auto) 0 Squamous Epi Cells Auto <1 Urine Mucus (Auto) RARE Urine Ascorbic Acid NEGATIVE Urine Opiates Screen NEGATIVE Urine Methadone Screen NEGATIVE Ur Barbiturates Screen NEGATIVE Ur Phencyclidine Scrn NEGATIVE Ur Amphetamines Screen NEGATIVE U Benzodiazepines Scrn NEGATIVE Urine Cocaine Screen NEGATIVE U Marijuana (THC) Screen UNCONFIRMED POSITIVE 05/31/19 14:00 WBC RBC Hgb Hct MCV MCH MCHC RDW Plt Count Lymph % (Auto) [place] % (Auto) Eos % (Auto) Baso % (Auto) Absolute Neuts (auto) Absolute Lymphs (auto) Absolute Monos (auto) Absolute Eos (auto) Absolute Basos (auto) Seg Neutrophils % Sodium 137.8 Potassium 4.3 Chloride 101 Carbon Dioxide 29 Anion Gap 8 BUN 8 Creatinine 0.81 Est GFR ( Amer) > 60 Est GFR (MDRD) Non-Af > 60 Glucose 93 Calcium 9.8 Total Bilirubin 0.7 Direct Bilirubin 0.2 Neonat Total Bilirubin Not Reportable Neonat Direct Bilirubin Not Reportable Neonat Indirect Bili Not Reportable AST 38 ALT 18 Alkaline Phosphatase 157 H Total Protein 8.3 H Albumin 4.2 Lipase 684.5 H Urine Color Urine Appearance Urine pH Ur Specific [place] Urine Protein Urine Glucose (UA) Urine Ketones Urine Blood Urine Nitrite Urine Bilirubin Urine Urobilinogen Ur Leukocyte Esterase Urine WBC (Auto) Urine RBC (Auto) Squamous Epi Cells Auto Urine Mucus (Auto) Urine Ascorbic Acid Urine Opiates Screen Urine Methadone Screen Ur Barbiturates Screen Ur Phencyclidine Scrn Ur Amphetamines Screen U Benzodiazepines Scrn Urine Cocaine Screen U Marijuana (THC) Screen - Vital Signs Vital signs: Temp Pulse Resp BP Pulse Ox 98.2 F 115 H 12 163/89 H 100 05/31/19 12:30 05/31/19 12:30 05/31/19 14:06 05/31/19 14:06 05/31/19 14:06 - Laboratory Result Diagrams: 05/31/19 14:00 05/31/19 14:00 Laboratory results interpreted by me: 05/31/19 05/31/19 05/31/19 13:29 14:00 14:00 WBC 3.3 L RDW 16.2 H Alkaline Phosphatase 157 H Total Protein 8.3 H Lipase 684.5 H Urine Glucose (UA) 50 H Urine Ketones TRACE H Urine Urobilinogen 2.0 H Discharge - Discharge Clinical Impression: Acute pancreatitis Qualifiers: Pancreatitis type: alcohol induced Acute pancreatitis complication: unspecified Qualified Code(s): K85.20 - Alcohol induced acute pancreatitis without necrosis or infection Condition: Stable Disposition: HOME, SELF-CARE Instructions: Pancreatitis ([facility]) Additional Instructions: [facility], and take the medications as prescribed to help with pain and nausea and to drink plenty of fluids to stay hydrated. Prescriptions: Oxycodone HCl [Oxycontin Ir 5 Mg Tablet] 1 mg PO Q8H PRN #10 tablet PRN Reason: For Pain Ondansetron [Zofran Odt 4 mg Tablet] 1 tab PO Q8H PRN #15 tab.rapdis PRN Reason: For Nausea/Vomiting Referrals: TIFFANIE MCLEAN PA [Primary Care Provider] - Follow up tomorrow
[2019-05-31] MEDS ORDERED: FENTANYL CITRATE INJ/PF 100 MCG/2 ML AMPUL IV ONE (16:14)
[2019-05-31] MEDS ORDERED: DIPHENHYDRAMINE HCL 50 MG/ML VIAL IV ONE (16:14)
[2019-05-31] MEDS ORDERED: ONDANSETRON ODT 4 MG TAB (6 TAB/ER DISP) PO PRN (16:17)
[2019-05-31 16:33] VITALS: BP 145/81
== END 2019-05-31 16:45 | disposition home or self-care (01) ==
LOC: ER 12:16
DX: K85.20 Alcohol induced acute pancreatitis without necrosis or infection (principal); R10.13 Epigastric pain; R11.2 Nausea with vomiting, unspecified; R19.7 Diarrhea, unspecified; R00.0 Tachycardia, unspecified; F17.200 Nicotine dependence, unspecified, uncomplicated; I25.10 Atherosclerotic heart disease of native coronary artery without angina pectoris; I10 Essential (primary) hypertension; J44.9 Chronic obstructive pulmonary disease, unspecified; E11.9 Type 2 diabetes mellitus without complications; Z91.018 Allergy to other foods; Z91.041 Radiographic dye allergy status; Z91.013 Allergy to seafood; Z87.19 Personal history of other diseases of the digestive system; Z90.49 Acquired absence of other specified parts of digestive tract
CPT/HCPCS: 99284; 96361; 96374; 96375; 36415; 83690; 85025; 80053; 81001; 80307; J1200; J3010; J2270; J2405; J7030

== ENCOUNTER 2019-09-25 18:12 | Observation (INO) | payer OTHER, MEDICARE ==
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
[2019-09-25 21:11] LABS: ABSOLUTE EOSINOPHILS # (AUTO) 0.1 10^3/uL (0.0-0.6); ABSOLUTE LYMPHOCYTES (AUTO) 0.7 10^3/uL (0.5-4.7); ABSOLUTE MONOCYTES (AUTO) 0.6 10^3/uL (0.1-1.4); ABSOLUTE NEUT (AUTO) 7.5 10^3/uL (1.7-8.2); BASOPHILS % (AUTO) 0.2 % (0-2); EOSINOPHILS % (AUTO) 0.7 % (0-6); HEMATOCRIT 41.3 % (37.9-51.0); HEMOGLOBIN 13.7 g/dL (13.5-17.0); LYMPHOCYTES % (AUTO) 8.1 % (13-45); MEAN CORPUSCULAR HGB CONC 33.2 g/dL (32.0-36.0); MEAN CORPUSCULAR VOLUME 90 fl (80-97); MONOCYTES % (AUTO) 7.1 % (3-13); PLATELET COUNT 319 10^3/uL (150-450); RED BLOOD COUNT 4.56 10^6/uL (4.35-5.55); RED CELL DISTRIBUTION WIDTH 15.4 % (11.5-14.0); SEGMENTED NEUTROPHILS % (AUTO) 83.9 % (42-78); TOTAL CELLS COUNTED % (AUTO) 100 %
[2019-09-25 21:32] LABS: ALBUMIN 4.3 g/dL (3.5-5.0); ALKALINE PHOSPHATASE 149 U/L (38-126); ANION GAP 12 (5-19); ASPARTATE AMINO TRANSFERASE 61 U/L (17-59); BILIRUBIN,DIRECT 0.4 mg/dL (0.0-0.4); BILIRUBIN,TOTAL 0.4 mg/dL (0.2-1.3); BLOOD UREA NITROGEN 9 mg/dL (7-20); CALCIUM 9.6 mg/dL (8.4-10.2); CARBON DIOXIDE 25 mmol/L (22-30); CHLORIDE 102 mmol/L (98-107); GLUCOSE 123 mg/dL (75-110); POTASSIUM 3.8 mmol/L (3.6-5.0); TOTAL PROTEIN 8.2 g/dL (6.3-8.2)
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
[2019-09-25 22:56] LABS: APPEARANCE,URINE CLEAR; BILIRUBIN,URINE NEGATIVE (NEGATIVE); COLOR,URINE YELLOW; GLUCOSE, URINE NEGATIVE (NEGATIVE); KETONES,URINE NEGATIVE (NEGATIVE); LEUKOCYTE ESTERASE,URINE NEGATIVE (NEGATIVE); NITRITE,URINE NEGATIVE (NEGATIVE); PROTEIN,URINE NEGATIVE (NEGATIVE); URINE SPECIFIC GRAVITY 1.012; UROBILINOGEN,URINE NEGATIVE mg/dL (<2.0)
[2019-09-25] MEDS ORDERED: MORPHINE SULFATE 10 MG/ML INJ IV ONE (23:02)
[2019-09-25] MEDS ORDERED: ONDANSETRON HCL INJ/PF 4 MG/2 ML SDV IV ONE (23:02)
[2019-09-25] MEDS ORDERED: DIPHENHYDRAMINE HCL 25 MG CAPSULE PO ONE (23:02)
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
[2019-09-26] MEDS ORDERED: MORPHINE SULFATE 10 MG/ML INJ IV ONE (02:02)
[2019-09-26] MEDS ORDERED: DEXTROSE 50%-WATER 25 GM/50 ML DISP.SYRIN IV PRN ×2 (03:14)
[2019-09-26] MEDS ORDERED: DEXTROSE 40% GEL 15 GM TUBE PO PRN ×2 (03:14)
[2019-09-26] MEDS ORDERED: GLUCAGON,HUMAN RECOMB 1 MG INJ SUBCUT PRN (03:14)
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
[2019-09-26] MEDS: NORMAL SALINE 1000 ML 1,000 ML IV PRN ×2 (05:49→19:37)
[2019-09-26] MEDS: KETOROLAC TROMETHAMINE INJ/PF 30 MG/1 ML SDV IV PRN ×3 (05:55→19:37)
[2019-09-26 07:02] LABS: HEMATOCRIT 35.9 % (37.9-51.0); MEAN CORPUSCULAR HEMOGLOBIN 29.9 pg (27.0-33.4); MEAN CORPUSCULAR HGB CONC 33.4 g/dL (32.0-36.0); MEAN CORPUSCULAR VOLUME 90 fl (80-97); PLATELET COUNT 236 10^3/uL (150-450); RED BLOOD COUNT 4.01 10^6/uL (4.35-5.55); RED CELL DISTRIBUTION WIDTH 15.2 % (11.5-14.0); WHITE BLOOD COUNT 4.5 10^3/uL (4.0-10.5)
[2019-09-26 07:25] LABS: ANION GAP 5 (5-19); BLOOD UREA NITROGEN 8 mg/dL (7-20); CALCIUM 8.7 mg/dL (8.4-10.2); CARBON DIOXIDE 27 mmol/L (22-30); CHLORIDE 105 mmol/L (98-107); GLUCOSE 88 mg/dL (75-110); POTASSIUM 4.1 mmol/L (3.6-5.0)
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
[2019-09-26] MEDS: THIAMINE HCL 100 MG, FOLIC ACID 1 MG in NORMAL SALINE 250 ML IV SCH (09:03)
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
--- NOTE | 2019-09-26 09:51 | RADIOLOGY REPORT (SQ) ---
EXAM DESCRIPTION: CHEST SINGLE VIEW COMPLETED DATE/TIME: 09/26/2019 9:26 am REASON FOR STUDY: Right-sided rib fractures COMPARISON: 08/23/2018 EXAM PARAMETERS: NUMBER OF VIEWS: One view. TECHNIQUE: Single frontal radiographic view of the chest acquired. RADIATION DOSE: NA LIMITATIONS: None. FINDINGS: LUNGS AND PLEURA: Stable pleuroparenchymal changes. No pneumothorax or consolidation. Hi atal hernia is again noted. MEDIASTINUM AND HILAR STRUCTURES: No masses. Contour normal. HEART AND VASCULAR STRUCTURES: Heart normal in size. Normal vasculature. BONES: No acute findings. HARDWARE: None in the chest. OTHER: No other significant finding. IMPRESSION: No interval change in the chest. TECHNICAL DOCUMENTATION: JOB ID: [id number] 2010 [employer]- All Rights Reserved Reading location - IP/workstation name: [email or web address]
[2019-09-26] MEDS: ENOXAPARIN SODIUM INJ 40 MG/0.4 ML DISP.SYRIN SUBCUT SCH (10:02)
[2019-09-26] MEDS: HYDROCODONE/ACETAMINOPHEN 10-325 MG TABLET PO PRN ×2 (16:37→20:53)
--- NOTE | 2019-09-26 22:39 | EKG REPORT ---
SEVERITY:- OTHERWISE NORMAL ECG - SINUS TACHYCARDIA : Confirmed by: Jena Munoz 26-Sep-2019 22:38:26
[2019-09-27] MEDS: DIPHENHYDRAMINE HCL 50 MG CAPSULE PO PRN ×4 (00:41→21:55)
[2019-09-27] MEDS: KETOROLAC TROMETHAMINE INJ/PF 30 MG/1 ML SDV IV PRN ×2 (04:05→21:55)
[2019-09-27] MEDS: HYDROCODONE/ACETAMINOPHEN 10-325 MG TABLET PO PRN ×4 (04:05→21:55)
[2019-09-27 07:08] LABS: ANION GAP 7 (5-19); BLOOD UREA NITROGEN 9 mg/dL (7-20); CALCIUM 8.7 mg/dL (8.4-10.2); CARBON DIOXIDE 23 mmol/L (22-30); CHLORIDE 107 mmol/L (98-107); GLUCOSE 117 mg/dL (75-110); POTASSIUM 4.3 mmol/L (3.6-5.0)
[2019-09-27 07:25] LABS: HEMATOCRIT 36.6 % (37.9-51.0); MEAN CORPUSCULAR HEMOGLOBIN 29.6 pg (27.0-33.4); MEAN CORPUSCULAR HGB CONC 32.8 g/dL (32.0-36.0); MEAN CORPUSCULAR VOLUME 90 fl (80-97); PLATELET COUNT 196 10^3/uL (150-450); RED BLOOD COUNT 4.06 10^6/uL (4.35-5.55); RED CELL DISTRIBUTION WIDTH 15.2 % (11.5-14.0)
[2019-09-27] MEDS: THIAMINE HCL 100 MG, FOLIC ACID 1 MG in NORMAL SALINE 250 ML IV SCH (09:02)
[2019-09-27] MEDS: ENOXAPARIN SODIUM INJ 40 MG/0.4 ML DISP.SYRIN SUBCUT SCH (09:03)
--- NOTE | 2019-09-27 09:24 | RADIOLOGY REPORT (SQ) ---
EXAM DESCRIPTION: CHEST SINGLE VIEW COMPLETED DATE/TIME: 09/27/2019 8:28 am REASON FOR STUDY: Right-sided rib fractures COMPARISON: 09/26/2019 EXAM PARAMETERS: NUMBER OF VIEWS: One view. TECHNIQUE: Single frontal radiographic view of the chest acquired. RADIATION DOSE: NA LIMITATIONS: None. FINDINGS: LUNGS AND PLEURA: No opacities, masses or pneumothorax. No pleural effusion. MEDIASTINUM AND HILAR STRUCTURES: No masses. Contour normal. HEART AND VASCULAR STRUCTURES: Heart normal in size. Normal vasculature. BONES: Right posterior 9- 11th rib fractures not well visualized on plain film. HARDWARE: None in the chest. OTHER: No other significant finding. IMPRESSION: Stable chest. No pneumothorax or pulmonary contusion. TECHNICAL DOCUMENTATION: JOB ID: [id number] 2010 [employer]- All Rights Reserved Reading location - IP/workstation name: [email or web address]
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
[2019-09-27] MEDS: ONDANSETRON HCL INJ/PF 4 MG/2 ML SDV IV PRN ×3 (11:39→21:55)
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
[2019-09-28] MEDS: ONDANSETRON HCL INJ/PF 4 MG/2 ML SDV IV PRN ×4 (03:28→18:19)
[2019-09-28] MEDS: HYDROCODONE/ACETAMINOPHEN 10-325 MG TABLET PO PRN ×5 (03:28→22:25)
[2019-09-28] MEDS: DIPHENHYDRAMINE HCL 50 MG CAPSULE PO PRN ×5 (03:28→22:25)
[2019-09-28] MEDS: KETOROLAC TROMETHAMINE INJ/PF 30 MG/1 ML SDV IV PRN ×2 (03:55→21:33)
[2019-09-28 06:49] LABS: HEMATOCRIT 37.4 % (37.9-51.0); HEMOGLOBIN 12.4 g/dL (13.5-17.0); MEAN CORPUSCULAR HEMOGLOBIN 29.9 pg (27.0-33.4); MEAN CORPUSCULAR HGB CONC 33.2 g/dL (32.0-36.0); MEAN CORPUSCULAR VOLUME 90 fl (80-97); PLATELET COUNT 204 10^3/uL (150-450); RED BLOOD COUNT 4.15 10^6/uL (4.35-5.55); RED CELL DISTRIBUTION WIDTH 15.1 % (11.5-14.0); WHITE BLOOD COUNT 2.6 10^3/uL (4.0-10.5)
[2019-09-28 07:10] LABS: ALBUMIN 3.4 g/dL (3.5-5.0); ALKALINE PHOSPHATASE 186 U/L (38-126); ANION GAP 6 (5-19); ASPARTATE AMINO TRANSFERASE 174 U/L (17-59); BILIRUBIN,DIRECT 0.4 mg/dL (0.0-0.4); BILIRUBIN,TOTAL 0.6 mg/dL (0.2-1.3); BLOOD UREA NITROGEN 7 mg/dL (7-20); CALCIUM 8.9 mg/dL (8.4-10.2); CARBON DIOXIDE 28 mmol/L (22-30); CHLORIDE 104 mmol/L (98-107); GLUCOSE 86 mg/dL (75-110)
[2019-09-28] MEDS: THIAMINE HCL 100 MG, FOLIC ACID 1 MG in NORMAL SALINE 250 ML IV SCH (09:52)
[2019-09-28] MEDS: ENOXAPARIN SODIUM INJ 40 MG/0.4 ML DISP.SYRIN SUBCUT SCH (09:56)
[2019-09-28 11:22] LABS: WHITE BLOOD COUNT 2.9 10^3/uL (4.0-10.5)
[2019-09-28 11:47] LABS: ABSOLUTE EOSINOPHILS # (AUTO) 0.1 10^3/uL (0.0-0.6); ABSOLUTE LYMPHOCYTES (AUTO) 0.5 10^3/uL (0.5-4.7); ABSOLUTE MONOCYTES (AUTO) 0.2 10^3/uL (0.1-1.4); ABSOLUTE NEUT (AUTO) 1.3 10^3/uL (1.7-8.2); BASOPHILS % (AUTO) 0.6 % (0-2); EOSINOPHILS % (AUTO) 2.7 % (0-6); HEMATOCRIT 34.7 % (37.9-51.0); LYMPHOCYTES % (AUTO) 25.2 % (13-45); MEAN CORPUSCULAR HEMOGLOBIN 30.6 pg (27.0-33.4); MEAN CORPUSCULAR HGB CONC 34.5 g/dL (32.0-36.0); MEAN CORPUSCULAR VOLUME 89 fl (80-97); MONOCYTES % (AUTO) 9.7 % (3-13); PLATELET COUNT 188 10^3/uL (150-450); RED BLOOD COUNT 3.91 10^6/uL (4.35-5.55); SEGMENTED NEUTROPHILS % (AUTO) 61.8 % (42-78); TOTAL CELLS COUNTED % (AUTO) 100 %; WHITE BLOOD COUNT 2.1 10^3/uL (4.0-10.5)
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
[2019-09-28] MEDS ORDERED: QUETIAPINE FUMARATE 100 MG TABLET PO PRN (15:16)
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
[2019-09-28] MEDS ORDERED: HYDROPHILIC TOP SCH (18:00)
[2019-09-28] MEDS ORDERED: POTASSIUM CHLORIDE 10 MEQ TABLET.ER PO SCH (18:00)
[2019-09-28] MEDS ORDERED: TRIAMCINOLONE ACETONIDE 0.1% CREAM 15 GM TOP SCH (18:00)
[2019-09-28] MEDS: GABAPENTIN 400 MG CAPSULE PO SCH (21:30)
[2019-09-28] MEDS: PREDNISOLONE ACETATE 1% OPH SUSP 5 ML OU SCH (21:31)
[2019-09-28] MEDS: MUPIROCIN 2% OINTMENT 22 GM TOP SCH (21:38)
[2019-09-28] MEDS ORDERED: ATORVASTATIN CALCIUM 20 MG TABLET PO SCH (22:00)
[2019-09-28] MEDS ORDERED: ACAMPROSATE CALCIUM 666 MG PO SCH (22:00)
[2019-09-28] MEDS ORDERED: AMITRIPTYLINE HCL 50 MG TABLET PO SCH (22:00)
[2019-09-28] MEDS ORDERED: (PENDING PHARMACY ID) (Quetiapine Fumarate [Seroquel] 400 MG) PO SCH (22:00)
[2019-09-29] MEDS: HYDROCODONE/ACETAMINOPHEN 10-325 MG TABLET PO PRN (04:09)
[2019-09-29] MEDS: DIPHENHYDRAMINE HCL 50 MG CAPSULE PO PRN (04:09)
[2019-09-29] MEDS: GABAPENTIN 400 MG CAPSULE PO SCH (05:36)
[2019-09-29] MEDS: PREDNISOLONE ACETATE 1% OPH SUSP 5 ML OU SCH (05:37)
[2019-09-29] MEDS: MUPIROCIN 2% OINTMENT 22 GM TOP SCH (05:39)
[2019-09-29] MEDS ORDERED: PANTOPRAZOLE SODIUM 20 MG TABLET.DR PO SCH (06:00)
[2019-09-29] MEDS: THIAMINE HCL 100 MG, FOLIC ACID 1 MG in NORMAL SALINE 250 ML IV SCH (08:23)
[2019-09-29 08:31] VITALS: BP 147/88
[2019-09-29] MEDS ORDERED: MAGNESIUM OXIDE 400 MG TABLET PO SCH (10:00)
[2019-09-29] MEDS ORDERED: THIAMINE HCL 100 MG TABLET PO SCH (10:00)
[2019-09-29] MEDS ORDERED: (PENDING PHARMACY ID) (Loteprednol Etabonate [Lotemax] 1 DROP) OU SCH (10:00)
[2019-09-29] MEDS ORDERED: LISINOPRIL 10 MG TABLET PO SCH (10:00)
[2019-09-29] MEDS ORDERED: (PENDING PHARMACY ID) (Lisinopril [Lisinopril] 20 MG) PO SCH (10:00)
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
== END 2019-09-29 09:08 | disposition home or self-care (01) ==
LOC: ER 18:12 → EH 09-26 02:14 → 4N 09-26 12:40
PROVIDERS: ATTEND Surgery
DX: S22.41XA Multiple fractures of ribs, right side, initial encounter for closed fracture (principal); V43.52XA Car driver injured in collision with other type car in traffic accident, initial encounter; Y92.410 Unspecified street and highway as the place of occurrence of the external cause; S00.211A Abrasion of right eyelid and periocular area, initial encounter; W22.8XXA Striking against or struck by other objects, initial encounter; F12.10 Cannabis abuse, uncomplicated; J90 Pleural effusion, not elsewhere classified; I25.10 Atherosclerotic heart disease of native coronary artery without angina pectoris; B20 Human immunodeficiency virus [HIV] disease; H53.8 Other visual disturbances; Z86.73 Personal history of transient ischemic attack (TIA), and cerebral infarction without residual deficits; F10.21 Alcohol dependence, in remission; R10.13 Epigastric pain; R10.11 Right upper quadrant pain; F17.200 Nicotine dependence, unspecified, uncomplicated; J98.11 Atelectasis; K44.9 Diaphragmatic hernia without obstruction or gangrene; R51 Headache; K86.1 Other chronic pancreatitis; F32.9 Major depressive disorder, single episode, unspecified; I10 Essential (primary) hypertension; Z79.899 Other long term (current) drug therapy; R91.8 Other nonspecific abnormal finding of lung field; Z86.19 Personal history of other infectious and parasitic diseases; Z91.041 Radiographic dye allergy status
CPT/HCPCS: 96376; 99285; 96374; 96375; 36415 ×4; 82150; 83690 ×2; 85025; 85027 ×3; 80048 ×2; 80053 ×2; 81001; 71045 ×2; 73630; 73502; 70450; 71250; 72125; 74176 ×2; 93005; 93010; G0378 ×5; J3490 ×11; J1885 ×3; J2270; J3411 ×3; J2405 ×3; J7030; J7050 ×3

== ENCOUNTER 2020-01-12 05:48 | Inpatient (IN) | payer OTHER, MEDICARE ==
[2020-01-12] MEDS ORDERED: NORMAL SALINE 500 ML IV ONE (07:00)
[2020-01-12] MEDS ORDERED: PANTOPRAZOLE SODIUM 40 MG VIAL IV ONE (07:06)
[2020-01-12] MEDS ORDERED: MORPHINE SULFATE 10 MG/ML INJ IV ONE (07:06)
[2020-01-12] MEDS ORDERED: ONDANSETRON HCL INJ/PF 4 MG/2 ML SDV IV ONE (07:06)
[2020-01-12 07:09] LABS: ABSOLUTE LYMPHOCYTES (AUTO) 0.5 10^3/uL (0.5-4.7); ABSOLUTE MONOCYTES (AUTO) 0.3 10^3/uL (0.1-1.4); ABSOLUTE NEUT (AUTO) 2.6 10^3/uL (1.7-8.2); BASOPHILS % (AUTO) 0.4 % (0-2); EOSINOPHILS % (AUTO) 0.6 % (0-6); HEMOGLOBIN 12.5 g/dL (13.5-17.0); LYMPHOCYTES % (AUTO) 14.7 % (13-45); MEAN CORPUSCULAR HEMOGLOBIN 28.6 pg (27.0-33.4); MEAN CORPUSCULAR HGB CONC 32.9 g/dL (32.0-36.0); MEAN CORPUSCULAR VOLUME 87 fl (80-97); MONOCYTES % (AUTO) 8.1 % (3-13); PLATELET COUNT 235 10^3/uL (150-450); RED BLOOD COUNT 4.36 10^6/uL (4.35-5.55); RED CELL DISTRIBUTION WIDTH 15.3 % (11.5-14.0); SEGMENTED NEUTROPHILS % (AUTO) 76.2 % (42-78); TOTAL CELLS COUNTED % (AUTO) 100 %; WHITE BLOOD COUNT 3.4 10^3/uL (4.0-10.5)
[2020-01-12 07:19] LABS: INTERNATIONAL RATION (INR) 1.19; PARTIAL THROMBOPLASTIN TIME 35.3 SEC (23.5-35.8); PROTHROMBIN TIME 15.2 SEC (11.4-15.4)
[2020-01-12 07:21] LABS: ALBUMIN 3.6 g/dL (3.5-5.0); ALKALINE PHOSPHATASE 105 U/L (38-126); ANION GAP 8 (5-19); ASPARTATE AMINO TRANSFERASE 35 U/L (17-59); BILIRUBIN,DIRECT 0.1 mg/dL (0.0-0.4); BILIRUBIN,TOTAL 0.7 mg/dL (0.2-1.3); BLOOD UREA NITROGEN 13 mg/dL (7-20); CALCIUM 9.1 mg/dL (8.4-10.2); CARBON DIOXIDE 26 mmol/L (22-30); CHLORIDE 104 mmol/L (98-107); GLUCOSE 97 mg/dL (75-110); POTASSIUM 4.1 mmol/L (3.6-5.0); TOTAL PROTEIN 6.9 g/dL (6.3-8.2)
[2020-01-12 07:27] LABS: ALCOHOL < 10 mg/dL (NONE DETECTED)
--- NOTE | 2020-01-12 07:36 | RADIOLOGY REPORT (SQ) ---
CHEST 1 VIEW on 01/12/2020 at 7:13 AM CLINICAL INDICATION: Nausea and vomiting, generalized abdominal pain COMPARISON: 09/27/2019 FINDINGS: Retrocardiac opacity is consistent with a moderate-sized hiatal hernia. The lungs are clear. Heart is within normal limits for size. Pulmonary vascularity is within normal limits. No bony abnormality is noted. IMPRESSION: Hiatal hernia with no acute cardiopulmonary disease.
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
[2020-01-12 08:24] LABS: VENOUS BLOOD BASE EXCESS 0.5 mmol/L; VENOUS BLOOD HCO3 27.1 mmol/L (20-32); VENOUS BLOOD PCO2 52.3 mmHg (35-63); VENOUS BLOOD PH 7.33 (7.30-7.42)
[2020-01-12 08:25] LABS: APPEARANCE,URINE SLIGHTLY-CLOUDY; BILIRUBIN,URINE NEGATIVE (NEGATIVE); COLOR,URINE YELLOW; GLUCOSE, URINE NEGATIVE (NEGATIVE); KETONES,URINE 80 mg/dL (NEGATIVE); LEUKOCYTE ESTERASE,URINE NEGATIVE (NEGATIVE); NITRITE,URINE NEGATIVE (NEGATIVE); PROTEIN,URINE NEGATIVE (NEGATIVE); URINE SPECIFIC GRAVITY 1.016; UROBILINOGEN,URINE NEGATIVE mg/dL (<2.0)
[2020-01-12 08:53] LABS: URINE AMPHETAMINES SCREEN NEGATIVE; URINE BARBITURATES SCREEN NEGATIVE; URINE BENZODIAZEPINES SCREEN NEGATIVE; URINE COCAINE SCREEN NEGATIVE; URINE METHADONE SCREEN NEGATIVE; URINE PHENCYCLIDINE SCREEN NEGATIVE
[2020-01-12 08:54] LABS: URINE MARIJUANA (THC) SCREEN UNCONFIRMED POSITIVE
--- NOTE | 2020-01-12 09:19 | ER Document Report ---
Entered by BRITTNEE GUAJARDO SCRIBE 01/12/20 0658 Acting as scribe for:BEVERLY KAM MD ED General - General Chief Complaint: Abdominal Pain Stated Complaint: ABDOMINAL PAIN Time Seen by Provider: 01/12/20 06:09 Primary Care Provider: TIFFANIE MCLEAN PA [Primary Care Provider] - Follow up as needed Information source: Patient Notes: This 64-year-old male presents to the emergency department via EMS complaining of diffuse abdominal pain. Patient describes the abdominal pain as a 5/5, constant and aching. Patient reports vomiting and dizziness this morning. Patient states that he believes his abdominal pain is due to his pancreas. Patient explains that he has a history of pancreatitis from drinking alcohol 2 years ago. Patient reports normal bowel movements and states that his vomit this morning was a "dark red". Patient states that his last drink was two days ago and he had three beers. Patient denies loss of consciousness, diarrhea and blood in stool. TRAVEL OUTSIDE OF THE [place] IN LAST 30 DAYS: No - Related Data Allergies/Adverse Reactions: coffee (Coffea arabica) [Coffee] Allergy (Verified 09/26/19 08:38) Iodinated Contrast Media [IV Dye, Iodine Containing] Allergy (Verified 09/26/19 08:38) iodine [Iodine] Allergy (Verified 09/26/19 08:38) Shellfish * [Shellfish] Allergy (Verified 09/26/19 08:38) Past Medical History - General Information source: Patient - Social History Smoking Status: Current Every Day Smoker Cigarette use (# per day): No Chew tobacco use (# tins/day): No Frequency of alcohol use: Heavy Drug Abuse: Marijuana Lives with: Spouse/Significant other Family History: Arthritis, CAD - Sister, DM, Hyperlipidemia, Hypertension Patient has homicidal ideation: No - Past Medical History Cardiac Medical History: Reports: Hx Congestive Heart Failure, Hx Coronary Artery Disease, Hx Hypercholesterolemia, Hx Hypertension Pulmonary Medical History: Reports: Hx Asthma, Hx COPD Neurological Medical History: Reports: Hx Cerebrovascular Accident - NO DEFICITS Endocrine Medical History: Reports: Hx Diabetes Mellitus Type 1, Hx Diabetes Mellitus Type 2 GI Medical History: Reports: Hx Gastroesophageal Reflux Disease, Hx Hepatitis - History of hepatitis C in the past., Hx Hiatal Hernia, Hx Pancreatitis Musculoskeletal Medical History: Reports Hx Arthritis - Chronic lower back pain Psychiatric Medical History: Reports: Hx Anxiety, Hx Bipolar Disorder, Hx Depression Infectious Medical History: Reports: Hx Hepatitis - History of hepatitis C in the past., Hx HIV Past Surgical History: Reports: Hx Abdominal Surgery, Hx Cholecystectomy - Immunizations Immunizations up to date: No Hx Diphtheria, Pertussis, Tetanus Vaccination: Yes Hx Pneumococcal Vaccination: 08/08/12 Review of Systems - Review of Systems Constitutional: No symptoms reported EENT: No symptoms reported Cardiovascular: See HPI, Dizziness Respiratory: No symptoms reported Gastrointestinal: See HPI, Abdominal pain, Nausea, Vomiting, Last bowel movement. denies: Diarrhea, Black stools Genitourinary: No symptoms reported Male Genitourinary: No symptoms reported Musculoskeletal: No symptoms reported Skin: No symptoms reported Hematologic/Lymphatic: No symptoms reported Neurological/Psychological: See HPI. denies: Lost consciousness -: Yes All other systems reviewed and negative Physical Exam - Vital signs Vitals: Temp Pulse Resp BP Pulse Ox 98.1 F 114 H 12 133/80 H 96 01/12/20 05:48 01/12/20 05:48 01/12/20 05:48 01/12/20 05:48 01/12/20 05:48 - Notes Notes: Physical Exam: General: Alert, appears well. HEENT: Normocephalic. Atraumatic. PERRL. Extraocular movements intact. Oropharyn x clear. Poor dentition. Neck: Supple. Non-tender. Respiratory: No respiratory distress. Clear and equal breath sounds bilaterally. Cardiovascular: Regular rate and rhythm. Abdominal: Diffuse tenderness to palpation with guarding. No rebound. No distension. Normal Bowel Sounds. Back: No gross abnormalities. Extremities: Moves all four extremities. Upper extremities: Normal inspection. Normal ROM. Lower extremities: Normal inspection. No edema. Normal ROM. Neurological: Normal cognition. AAOx4. Normal speech. Psychological: Normal affect. Normal Mood. Skin: Warm. Dry. Normal color. Course - Re-evaluation Re-evalutation: 01/12/20 09:17 Patient in bed at rest not showing significant signs of distress at this time. Patient continues to ask for pain medications - Vital Signs Vital signs: Temp Pulse Resp BP Pulse Ox 98.1 F 114 H 12 133/80 H 96 01/12/20 05:48 01/12/20 05:48 01/12/20 05:48 01/12/20 05:48 01/12/20 05:48 - Laboratory Result Diagrams: 01/12/20 06:17 01/12/20 06:17 Laboratory results interpreted by me: 01/12/20 01/12/20 01/12/20 06:17 06:17 08:00 WBC 3.4 L Hgb 12.5 L RDW 15.3 H Lipase 2699.7 H Urine Ketones 80 H 01/12/20 07:56 Elevated lipase 2699 otherwise no other acute process. - Diagnostic Test Radiology reviewed: Image reviewed, Reports reviewed Radiology results interpreted by me: 01/12/20 07:57 Chest x-ray shows no acute process except for a large hiatal hernia noted. CT abdomen and pelvis without oral or IV contrast shows acute on top of chronic pancreatitis with noted increased stranding consistent with the acute phase of pancreatitis. Otherwise small amount of fluid in the pelvis otherwise negative 01/12/20 07:58 - EKG Interpretation by Me Additional EKG results interpreted by me: 01/12/20 07:55 Twelve-lead EKG shows normal sinus rhythm rate of [address]-T wave changes. Discharge - Discharge Clinical Impression: Acute pancreatitis, Abdominal pain, Nausea and vomiting Condition: Stable Disposition: ADMITTED INPATIENT Admitting Provider: Jay (Hospitalist) Unit Admitted: Medical Floor Referrals: TIFFANIE MCLEAN PA [Primary Care Provider] - Follow up as needed I personally performed the services described in the documentation, reviewed and edited the documentation which was dictated to the scribe in my presence, and it accurately records my words and actions.
[2020-01-12] MEDS ORDERED: HYDRALAZINE HCL INJ/PF 20 MG/1 ML SDV IV PRN (09:43)
[2020-01-12] MEDS: RINGERS SOLUTION,LACTATED 1,000 ML IV PRN ×3 (09:59→21:43)
[2020-01-12] MEDS: MORPHINE SULFATE 10 MG/ML INJ IV PRN ×2 (13:31→18:27)
[2020-01-12] MEDS: ONDANSETRON HCL INJ/PF 4 MG/2 ML SDV IV PRN ×2 (13:31→18:28)
[2020-01-12] MEDS: HEPARIN SOD (PORCINE) 5,000 UNIT/ML 1 ML VIAL SUBCUT SCH ×2 (13:33→21:24)
--- NOTE | 2020-01-12 16:22 | PDOC H&P ---
History of Present Illness Admission Date/PCP: 01/12/20 09:30 JERRELL VALDES History of Present Illness: OLGA JONES is a 64 year old male with a history of alcoholism and chronic camp creatitis. He claims his alcoholism is in a degree of remission and he only has about 3 drinks at a time intermittently. He takes acamprosate, at least that is on his home medication list; he does not know the names of all the medications that he takes. He says he has had abdominal pain for almost 4 weeks. He has not had any nausea or vomiting. He says his p.o. intake the last few days has not been very good. CT of his abdomen was unremarkable, but his lipase was elevated. Past Medical History Cardiac Medical History: Reports: Congestive Heart Failure, Coronary Artery Disease, Hyperlipidema, Hypertension Denies: Myocardial Infarction Pulmonary Medical History: Reports: Asthma, Chronic Obstructive Pulmonary Disease (COPD) Neurological Medical History: Denies: Seizures Endocrine Medical History: Reports: Diabetes Mellitus Type 1, Diabetes Mellitus Type 2 GI Medical History: Reports: Gastroesophageal Reflux Disease, Hepatitis - History of hepatitis C in the past., Hiatal Hernia Musculoskeltal Medical History: Reports: Arthritis - Chronic lower back pain Psychiatric Medical History: Reports: Bipolar Disorder, Depression Hematology: Denies: Anemia, Sickle Cell Disease Infectious Medical History: Reports: HIV Past Surgical History Past Surgical History: Reports: Cholecystectomy Denies: Pacemaker Social History Lives with: Spouse/Significant other Smoking Status: Current Every Day Smoker Electronic Cigarette use?: No Frequency of Alcohol Use: Heavy - None in the past 5 days Hx Recreational Drug Use: Yes Drugs: Marijuana Hx Prescription Drug Abuse: No Family History Family History: Arthritis, CAD - Sister, DM, Hyperlipidemia, Hypertension Parental Family History Reviewed: Yes Children Family History Reviewed: Yes Sibling(s) Family History Reviewed.: Yes Medication/Allergy Home Medications: Acamprosate Calcium 666 mg PO Q8 09/26/19 Amitriptyline HCl [Elavil 50 mg Tablet] 50 mg PO QHS 09/26/19 Atorvastatin Calcium [Lipitor 20 mg Tablet] 10 mg PO QHS 09/26/19 Gabapentin [Neurontin] 800 mg PO Q8 09/26/19 Lisinopril 20 mg PO DAILY 09/26/19 Omeprazole 20 mg PO DAILY 09/26/19 Quetiapine Fumarate [Seroquel] 400 mg PO QHS 09/26/19 Thiamine HCl [Thiamine 100 mg Tablet] 100 mg PO DAILY 09/26/19 Brimonidine Tartrate [Alphagan P] 1 drop OP BID 01/12/20 Prednisolone Acetate [Pred Forte] 1 drop OU BID 01/12/20 Allergies/Adverse Reactions: coffee (Coffea arabica) [Coffee] Allergy (Verified 09/26/19 08:38) Iodinated Contrast Media [IV Dye, Iodine Containing] Allergy (Verified 09/26/19 08:38) iodine [Iodine] Allergy (Verified 09/26/19 08:38) Shellfish * [Shellfish] Allergy (Verified 09/26/19 08:38) Review of Systems All systems: reviewed and no additional remarkable complaints except as stated - All systems were reviewed and were negative except as noted in the HPI Physical Exam Vital Signs: Temp Pulse Resp BP Pulse Ox 97.8 F 100 16 152/78 H 100 01/12/20 11:19 01/12/20 14:00 01/12/20 11:19 01/12/20 11:19 01/12/20 11:19 Intake & Output 01/11/20 01/12/20 01/13/20 06:59 06:59 06:59 Intake Total 1500 Balance 1500 Weight 66.224 kg 60.2 kg General appearance: PRESENT: no acute distress, cooperative, disheveled, thin Head exam: PRESENT: atraumatic, normocephalic Eye exam: PRESENT: EOMI, PERRLA. ABSENT: conjunctival injection, nystagmus, scleral icterus Ear exam: PRESENT: normal external ear exam Mouth exam: PRESENT: dry mucosa, neck supple Teeth exam: PRESENT: poor dentation Throat exam: ABSENT: post pharyngeal erythema Neck exam: PRESENT: full ROM. ABSENT: carotid bruit, JVD, lymphadenopathy, meningismus, tenderness, thyromegaly Respiratory exam: PRESENT: clear to auscultation eblén, symmetrical, unlabored. ABSENT: accessory muscle use, chest wall tenderness, crackles, prolonged expiratory phas, rhonchi, tachypnea, wheezes Cardiovascular exam: PRESENT: RRR, +S1, +S2 Pulses: PRESENT: normal carotid pulses Vascular exam: PRESENT: normal capillary refill GI/Abdominal exam: PRESENT: normal bowel sounds, soft, tenderness - Mild. ABSENT: distended, guarding, rebound Extremities exam: ABSENT: pedal edema Musculoskeletal exam: PRESENT: normal inspection. ABSENT: deformity Neurological exam: PRESENT: alert, awake, oriented to person, oriented to place, oriented to time, oriented to situation, CN II-XII grossly intact. ABSENT: motor sensory deficit Psychiatric exam: PRESENT: flat affect Skin exam: PRESENT: dry, warm Results Laboratory Results: 01/12/20 06:17 01/12/20 06:17 01/12/20 01/12/20 01/12/20 06:17 06:17 08:00 WBC 3.4 L RBC 4.36 Hgb 12.5 L Hct 38.0 MCV 87 MCH 28.6 MCHC 32.9 RDW 15.3 H Plt Count 235 Seg Neutrophils % 76.2 VBG pH VBG pCO2 VBG HCO3 VBG Base Excess Sodium 138.1 Potassium 4.1 Chloride 104 Carbon Dioxide 26 Anion Gap 8 BUN 13 Creatinine 0.85 Est GFR ( Amer) > 60 Glucose 97 Lactic Acid 1.1 Calcium 9.1 Total Bilirubin 0.7 AST 35 Alkaline Phosphatase 105 Total Protein 6.9 Albumin 3.6 Lipase 2699.7 H Urine Color Urine Appearance Urine pH Ur Specific Oliver Urine Protein Urine Glucose (UA) Urine Ketones Urine Blood Urine Nitrite Ur Leukocyte Esterase Urine WBC (Auto) 01/12/20 01/12/20 08:00 08:00 WBC RBC Hgb Hct MCV MCH MCHC RDW Plt Count Seg Neutrophils % VBG pH 7.33 VBG pCO2 52.3 VBG HCO3 27.1 VBG Base Excess 0.5 Sodium Potassium Chloride Carbon Dioxide Anion Gap BUN Creatinine Est GFR ( Amer) Glucose Lactic Acid Calcium Total Bilirubin AST Alkaline Phosphatase Total Protein Albumin Lipase Urine Color YELLOW Urine Appearance SLIGHTLY-CLOUDY Urine pH 6.0 Ur Specific Oliver 1.016 Urine Protein NEGATIVE Urine Glucose (UA) NEGATIVE Urine Ketones 80 H Urine Blood NEGATIVE Urine Nitrite NEGATIVE Ur Leukocyte Esterase NEGATIVE Urine WBC (Auto) 0 01/12/20 06:17 Troponin I < 0.012 Impressions: Chest X-Ray 01/12/20 06:58 IMPRESSION: Hiatal hernia with no acute cardiopulmonary disease. Abdomen/Pelvis CT 01/12/20 07:05 IMPRESSION: Development of peripancreatic stranding, concerning for acute pancreatitis superimposed upon chronic pancreatitis. Recommend correlation with amylase and lipase. Large hiatal hernia. Small amount of free fluid within the pelvis. TECHNICAL DOCUMENTATION: Quality ID # [id number]: Final reports with documentation of one or more dose reduction techniques (e.g., Automated exposure control, adjustment of the mA and/or kV according to patient size, use of iterative reconstruction technique) copyright 2011 [employer]- All Rights Reserved Assessment and Plan - Diagnosis (1) Acute pancreatitis Qualifiers: Pancreatitis type: unspecified pancreatitis type Acute pancreatitis complication: no infection or necrosis Qualified Code(s): K85.90 - Acute pancreatitis without necrosis or infection, unspecified Is this a current diagnosis for this admission?: Yes Plan: He claims that he is not drinking very much now. He is apparently on a corey mprosate at home. No evidence of gallstone involvement. He does have a history of chronic pancreatitis. He is n.p.o. with copious IV fluids for now. (2) Dehydration Is this a current diagnosis for this admission?: Yes Plan: Had ketones in his urine. We will give him some IV fluids and monitor his urine output. (3) Nausea and vomiting Qualifiers: Vomiting type: bilious vomiting Qualified Code(s): R11.14 - Bilious vomiting Is this a current diagnosis for this admission?: Yes Plan: We will give him some Zofran (4) Alcoholism Is this a current diagnosis for this admission?: Yes Plan: He claims it is in remission. We will resume his acamprosate once he is able to take p.o. We will monitor for any signs of withdrawal. (5) History of CVA (cerebrovascular accident) Is this a current diagnosis for this admission?: Yes Plan: We will continue his statin (6) History of hepatitis C Is this a current diagnosis for this admission?: Yes (7) Hypertension Qualifiers: Hypertension type: essential hypertension Qualified Code(s): I10 - Essential (primary) hypertension Is this a current diagnosis for this admission?: Yes Plan: Blood pressures are doing fine for now, will resume his lisinopril once he is able to take p.o. - Time Time Spent with patient: 35 or more minutes - Inpatient Certification Based on my medical assessment, after consideration of the patient's comorbidities, presenting symptoms, or acuity I expect that the services needed warrant INPATIENT care.: Yes I certify that my determination is in accordance with my understanding of Medicare's requirements for reasonable and necessary INPATIENT services [42 CFR 412.3e].: Yes Medical Necessity: Significant Comorbidiites Make Outpatient Treatment Too Risky, Need Close Monitoring Due to Risk of Patient Decompensation, Need For IV Fluids, Need For Continuous Telemetry Monitoring, Risk of Complication if Not Cared For in Hospital
[2020-01-12] MEDS ORDERED: DEXTROSE 50%-WATER 25 GM/50 ML DISP.SYRIN IV ONE ×2 (19:14→22:30)
[2020-01-12] MEDS ORDERED: DEXTROSE 50%-WATER 25 GM/50 ML DISP.SYRIN IV PRN ×2 (19:15)
[2020-01-12] MEDS ORDERED: DEXTROSE 40% GEL 15 GM TUBE PO PRN ×2 (19:15)
[2020-01-12] MEDS ORDERED: GLUCAGON,HUMAN RECOMB 1 MG INJ IM PRN (19:15)
--- NOTE | 2020-01-12 20:55 | EKG REPORT ---
SEVERITY:- NORMAL ECG - SINUS RHYTHM : Confirmed by: Jena Munoz 12-Jan-2020 20:54:07
[2020-01-12] MEDS: DIPHENHYDRAMINE HCL 50 MG/ML VIAL IV PRN (21:37)
[2020-01-12] MEDS ORDERED: PREDNISOLONE ACETATE 1% OPH SUSP 5 ML OU ONE (22:45)
[2020-01-12] MEDS ORDERED: BRIMONIDINE TARTRATE 0.2% OPH SOLN 5 ML OU ONE (22:45)
[2020-01-12] MEDS ORDERED: PREDNISOLONE ACETATE 1% OPH SUSP 5 ML ONE (22:52)
[2020-01-12] MEDS ORDERED: BRIMONIDINE TARTRATE 0.2% OPH SOLN 5 ML ONE (22:53)
[2020-01-13] MEDS: MORPHINE SULFATE 10 MG/ML INJ IV PRN ×5 (00:30→20:47)
[2020-01-13] MEDS: ONDANSETRON HCL INJ/PF 4 MG/2 ML SDV IV PRN ×5 (00:31→20:47)
[2020-01-13] MEDS: DIPHENHYDRAMINE HCL 50 MG/ML VIAL IV PRN ×3 (03:57→21:58)
[2020-01-13] MEDS: HEPARIN SOD (PORCINE) 5,000 UNIT/ML 1 ML VIAL SUBCUT SCH ×3 (05:15→21:08)
[2020-01-13 06:30] LABS: HEMATOCRIT 32.3 % (37.9-51.0); HEMOGLOBIN 10.7 g/dL (13.5-17.0); MEAN CORPUSCULAR HEMOGLOBIN 28.9 pg (27.0-33.4); MEAN CORPUSCULAR HGB CONC 33.1 g/dL (32.0-36.0); MEAN CORPUSCULAR VOLUME 87 fl (80-97); PLATELET COUNT 212 10^3/uL (150-450); RED CELL DISTRIBUTION WIDTH 15.5 % (11.5-14.0); WHITE BLOOD COUNT 2.8 10^3/uL (4.0-10.5)
[2020-01-13 06:51] LABS: BLOOD UREA NITROGEN 11 mg/dL (7-20); CALCIUM 8.4 mg/dL (8.4-10.2); CHLORIDE 105 mmol/L (98-107); GLUCOSE 86 mg/dL (75-110); POTASSIUM 4.1 mmol/L (3.6-5.0)
[2020-01-13 06:57] LABS: CARBON DIOXIDE 27 mmol/L (22-30)
[2020-01-13 07:01] LABS: ANION GAP 3 (5-19)
[2020-01-13] MEDS: PREDNISOLONE ACETATE 1% OPH SUSP 5 ML OU SCH ×2 (09:22→18:00)
[2020-01-13] MEDS: RINGERS SOLUTION,LACTATED 1,000 ML IV PRN ×3 (09:24→20:47)
[2020-01-13] MEDS: BRIMONIDINE TARTRATE 0.2% OPH SOLN 5 ML OU SCH ×2 (09:38→18:01)
--- NOTE | 2020-01-13 16:14 | PDOC PROGRESS REPORT ---
Subjective Progress Note for:: 01/13/20 Subjective:: No adverse events overnight. No new complaints. Vital signs been stable. No abdominal pain. No nausea or vomiting. Would like to try to advance his diet today. Reason For Visit: ACUTE ON CHRONIC PANCREATITIS Physical Exam Vital Signs: Temp Pulse Resp BP Pulse Ox 97.8 F 89 16 134/74 H 96 01/13/20 10:56 01/13/20 14:00 01/13/20 10:56 01/13/20 10:56 01/13/20 10:56 Intake & Output 01/12/20 01/13/20 01/14/20 06:59 06:59 06:59 Intake Total 3500 1225 Output Total 975 325 Balance 2525 900 Weight 66.224 kg 60.2 kg General appearance: PRESENT: no acute distress, cooperative, thin Respiratory exam: PRESENT: clear to auscultation belén, symmetrical, unlabored. ABSENT: accessory muscle use, chest wall tenderness, crackles, prolonged expiratory phas, rhonchi, tachypnea, wheezes Cardiovascular exam: PRESENT: RRR, +S1, +S2 Pulses: PRESENT: normal carotid pulses Vascular exam: PRESENT: normal capillary refill GI/Abdominal exam: PRESENT: normal bowel sounds, soft. ABSENT: distended, guarding, rebound, tenderness Extremities exam: ABSENT: clubbing, pedal edema Musculoskeletal exam: PRESENT: normal inspection. ABSENT: deformity Neurological exam: PRESENT: alert, awake, oriented to person, oriented to place, oriented to situation Psychiatric exam: PRESENT: appropriate affect, normal mood Skin exam: PRESENT: dry, warm Results Laboratory Results: 01/13/20 05:31 01/13/20 05:31 01/13/20 01/13/20 05:31 05:31 WBC 2.8 L RBC 3.70 L Hgb 10.7 L Hct 32.3 L MCV 87 MCH 28.9 MCHC 33.1 RDW 15.5 H Plt Count 212 Sodium 135.2 L Potassium 4.1 Chloride 105 Carbon Dioxide 27 Anion Gap 3 L BUN 11 Creatinine 0.73 Est GFR ( Amer) > 60 Glucose 86 Calcium 8.4 Lipase 540.7 H 01/12/20 06:17 Troponin I < 0.012 Impressions: Chest X-Ray 01/12/20 06:58 IMPRESSION: Hiatal hernia with no acute cardiopulmonary disease. Abdomen/Pelvis CT 01/12/20 07:05 IMPRESSION: Development of peripancreatic stranding, concerning for acute pancreatitis superimposed upon chronic pancreatitis. Recommend correlation with amylase and lipase. Large hiatal hernia. Small amount of free fluid within the pelvis. TECHNICAL DOCUMENTATION: Quality ID # [id number]: Final reports with documentation of one or more dose reduction techniques (e.g., Automated exposure control, adjustment of the mA and/or kV according to patient size, use of iterative reconstruction technique) copyright 2011 [employer]- All Rights Reserved Assessment and Plan - Diagnosis (1) Acute pancreatitis Qualifiers: Pancreatitis type: unspecified pancreatitis type Acute pancreatitis complication: no infection or necrosis Qualified Code(s): K85.90 - Acute pancreatitis without necrosis or infection, unspecified Is this a current diagnosis for this admission?: Yes Plan: Lipase is improved. No abdominal pain. We will advance him to clear liquids to see how he tolerates. (2) Dehydration Is this a current diagnosis for this admission?: Yes Plan: Resolved (3) Nausea and vomiting Qualifiers: Vomiting type: bilious vomiting Qualified Code(s): R11.14 - Bilious vomiting Is this a current diagnosis for this admission?: Yes Plan: Resolved (4) Alcoholism Is this a current diagnosis for this admission?: Yes Plan: No signs of withdrawal (5) History of CVA (cerebrovascular accident) Is this a current diagnosis for this admission?: Yes Plan: We will continue his statin (6) History of hepatitis C Is this a current diagnosis for this admission?: Yes (7) Hypertension Qualifiers: Hypertension type: essential hypertension Qualified Code(s): I10 - Essential (primary) hypertension Is this a current diagnosis for this admission?: Yes Plan: Blood pressures are doing fine for now, will resume his lisinopril once he is able to take p.o. - Time Time Spent with patient: 15-24 minutes
[2020-01-14] MEDS: MORPHINE SULFATE 10 MG/ML INJ IV PRN ×2 (01:36→09:48)
[2020-01-14] MEDS: ONDANSETRON HCL INJ/PF 4 MG/2 ML SDV IV PRN (01:37)
[2020-01-14] MEDS: RINGERS SOLUTION,LACTATED 1,000 ML IV PRN ×2 (01:39→06:22)
[2020-01-14] MEDS: DIPHENHYDRAMINE HCL 50 MG/ML VIAL IV PRN ×2 (03:56→09:48)
[2020-01-14 05:43] LABS: HEMOGLOBIN 11.3 g/dL (13.5-17.0); MEAN CORPUSCULAR HEMOGLOBIN 28.9 pg (27.0-33.4); MEAN CORPUSCULAR HGB CONC 33.3 g/dL (32.0-36.0); MEAN CORPUSCULAR VOLUME 87 fl (80-97); PLATELET COUNT 232 10^3/uL (150-450); RED BLOOD COUNT 3.93 10^6/uL (4.35-5.55); RED CELL DISTRIBUTION WIDTH 15.3 % (11.5-14.0); WHITE BLOOD COUNT 3.3 10^3/uL (4.0-10.5)
[2020-01-14 06:02] LABS: BLOOD UREA NITROGEN 6 mg/dL (7-20); CALCIUM 8.9 mg/dL (8.4-10.2); CARBON DIOXIDE 28 mmol/L (22-30); GLUCOSE 87 mg/dL (75-110); POTASSIUM 3.8 mmol/L (3.6-5.0)
[2020-01-14] MEDS: HEPARIN SOD (PORCINE) 5,000 UNIT/ML 1 ML VIAL SUBCUT SCH (06:04)
[2020-01-14 06:07] LABS: CHLORIDE 101 mmol/L (98-107)
[2020-01-14 06:15] LABS: ANION GAP 5 (5-19)
[2020-01-14] MEDS: PREDNISOLONE ACETATE 1% OPH SUSP 5 ML OU SCH (09:36)
[2020-01-14] MEDS: BRIMONIDINE TARTRATE 0.2% OPH SOLN 5 ML OU SCH (09:36)
[2020-01-14 10:02] VITALS: BP 140/79
--- NOTE | 2020-01-14 14:26 | PDOC DISCHARGE SUMMARY ---
Impression - Admit/DC Date/PCP Admission Date/Primary Care Provider: 01/12/20 09:30 JERRELL VALDES Discharge Date: 01/14/20 - Discharge Diagnosis (1) Acute pancreatitis Is this a current diagnosis for this admission?: Yes (2) Dehydration Is this a current diagnosis for this admission?: Yes (3) Nausea and vomiting Is this a current diagnosis for this admission?: Yes (4) Alcoholism Is this a current diagnosis for this admission?: Yes (5) History of CVA (cerebrovascular accident) Is this a current diagnosis for this admission?: Yes (6) History of hepatitis C Is this a current diagnosis for this admission?: Yes (7) Hypertension Is this a current diagnosis for this admission?: Yes - Additional Information Resuscitation Status: Full Code Discharge Diet: Cardiac Discharge Activity: Activity As Tolerated Referrals: TIFFANIE MCLEAN PA [Primary Care Provider] - Follow up as needed (THE AUTOMATED APPT. LINE IS UNAVAILABLE DUE TO AN UPGRADE TO THE SYSTEM. PATIENT WILL MAKE OWN APPT.) Home Medications: Acamprosate Calcium 666 mg PO Q8 09/26/19 Amitriptyline HCl [Elavil 50 mg Tablet] 50 mg PO QHS 09/26/19 Atorvastatin Calcium [Lipitor 20 mg Tablet] 10 mg PO QHS 09/26/19 Gabapentin [Neurontin] 800 mg PO Q8 09/26/19 Lisinopril 20 mg PO DAILY 09/26/19 Omeprazole 20 mg PO DAILY 09/26/19 Quetiapine Fumarate [Seroquel] 400 mg PO QHS 09/26/19 Thiamine HCl [Thiamine 100 mg Tablet] 100 mg PO DAILY 09/26/19 Brimonidine Tartrate [Alphagan P] 1 drop OP BID 01/12/20 Prednisolone Acetate [Pred Forte] 1 drop OU BID 01/12/20 History of Present Illiness History of Present Illness: OLGA JONES is a 64 year old male with a history of alcoholism and chronic pancreatitis. He claims his alcoholism is in a degree of remission and he only has about 3 drinks at a time intermittently. He takes acamprosate, at least that is on his home medication list; he does not know the names of all the medications that he takes. He says he has had abdominal pain for almost 4 weeks. He has not had any nausea or vomiting. He says his p.o. intake the last few days has not been very good. CT of his abdomen was unremarkable, but his lipase was elevated. Hospital Course Hospital Course: He responded very well to hydration and got rest. He had minimal pain. He was able to tolerate clear liquids without any problem and wanted to advance his diet further. He will resume his usual home medications. He was given instructions on how to advance his diet at home. He verbalizes understanding. Labs and examination were reassuring and he was discharged in stable condition. Physical Exam Vital Signs: Temp Pulse Resp BP Pulse Ox 98.0 F 85 16 140/79 H 98 01/14/20 10:00 01/14/20 10:00 01/14/20 10:00 01/14/20 10:00 01/14/20 10:00 Intake & Output 01/13/20 01/14/20 01/15/20 06:59 06:59 06:59 Intake Total 3500 4261 Output Total 975 1575 Balance 2525 2686 Weight 60.2 kg 60.2 kg General appearance: PRESENT: no acute distress, cooperative, thin Respiratory exam: PRESENT: clear to auscultation [place], symmetrical, unlabored. ABSENT: accessory muscle use, chest wall tenderness, crackles, prolonged expiratory phas, rhonchi, tachypnea, wheezes Cardiovascular exam: PRESENT: RRR, +S1, +S2 Pulses: PRESENT: normal carotid pulses Vascular exam: PRESENT: normal capillary refill GI/Abdominal exam: PRESENT: normal bowel sounds, soft. ABSENT: distended, guarding, rebound, tenderness Extremities exam: ABSENT: clubbing, pedal edema Musculoskeletal exam: PRESENT: normal inspection. ABSENT: deformity Neurological exam: PRESENT: alert, awake, oriented to person, oriented to place, oriented to situation Psychiatric exam: PRESENT: appropriate affect, normal mood Skin exam: PRESENT: dry, warm Results Laboratory Results: WBC 3.3 10^3/uL (4.0-10.5) L 01/14/20 05:26 RBC 3.93 10^6/uL (4.35-5.55) L 01/14/20 05:26 Hgb 11.3 g/dL (13.5-17.0) L 01/14/20 05:26 Hct 34.0 % (37.9-51.0) L 01/14/20 05:26 MCV 87 fl (80-97) 01/14/20 05:26 MCH 28.9 pg (27.0-33.4) 01/14/20 05:26 MCHC 33.3 g/dL (32.0-36.0) 01/14/20 05:26 RDW 15.3 % (11.5-14.0) H 01/14/20 05:26 Plt Count 232 10^3/uL (150-450) 01/14/20 05:26 Lymph % (Auto) 14.7 % (13-45) 01/12/20 06:17 [place] % (Auto) 8.1 % (3-13) 01/12/20 06:17 Eos % (Auto) 0.6 % (0-6) 01/12/20 06:17 Baso % (Auto) 0.4 % (0-2) 01/12/20 06:17 Absolute Neuts (auto) 2.6 10^3/uL (1.7-8.2) 01/12/20 06:17 Absolute Lymphs (auto) 0.5 10^3/uL (0.5-4.7) 01/12/20 06:17 Absolute Monos (auto) 0.3 10^3/uL (0.1-1.4) 01/12/20 06:17 Absolute Eos (auto) 0.0 10^3/uL (0.0-0.6) 01/12/20 06:17 Absolute Basos (auto) 0.0 10^3/uL (0.0-0.2) 01/12/20 06:17 Seg Neutrophils % 76.2 % (42-78) 01/12/20 06:17 PT 15.2 SEC (11.4-15.4) 01/12/20 06:17 INR 1.19 01/12/20 06:17 APTT 35.3 SEC (23.5-35.8) 01/12/20 06:17 VBG pH 7.33 (7.30-7.42) 01/12/20 08:00 VBG pCO2 52.3 mmHg (35-63) 01/12/20 08:00 VBG HCO3 27.1 mmol/L (20-32) 01/12/20 08:00 VBG Base Excess 0.5 mmol/L 01/12/20 08:00 Sodium 133.8 mmol/L (137-145) L 01/14/20 05:26 Potassium 3.8 mmol/L (3.6-5.0) 01/14/20 05:26 Chloride 101 mmol/L (98-107) 01/14/20 05:26 Carbon Dioxide 28 mmol/L (22-30) 01/14/20 05:26 Anion Gap 5 (5-19) 01/14/20 05:26 BUN 6 mg/dL (7-20) L 01/14/20 05:26 Creatinine 0.76 mg/dL (0.52-1.25) 01/14/20 05:26 Est GFR ( Amer) > 60 (>60) 01/14/20 05:26 Est GFR (MDRD) Non-Af > 60 (>60) 01/14/20 05:26 Glucose 87 mg/dL (75-110) 01/14/20 05:26 POC Glucose 92 mg/dL (70-110) 01/14/20 06:18 Lactic Acid 1.1 mmol/L (0.7-2.1) 01/12/20 08:00 Calcium 8.9 mg/dL (8.4-10.2) 01/14/20 05:26 Total Bilirubin 0.7 mg/dL (0.2-1.3) 01/12/20 06:17 Direct Bilirubin 0.1 mg/dL (0.0-0.4) 01/12/20 06:17 Neonat Total Bilirubin Not Reportable 01/12/20 06:17 Neonat Direct Bilirubin Not Reportable 01/12/20 06:17 Neonat Indirect Bili Not Reportable 01/12/20 06:17 AST 35 U/L (17-59) 01/12/20 06:17 ALT 13 U/L (<50) 01/12/20 06:17 Alkaline Phosphatase 105 U/L (38-126) 01/12/20 06:17 Troponin I < 0.012 ng/mL 01/12/20 06:17 Total Protein 6.9 g/dL (6.3-8.2) 01/12/20 06:17 Albumin 3.6 g/dL (3.5-5.0) 01/12/20 06:17 Lipase 353.3 U/L (23-300) H 01/14/20 05:26 Urine Color YELLOW 01/12/20 08:00 Urine Appearance SLIGHTLY-CLOUDY 01/12/20 08:00 Urine pH 6.0 (5.0-9.0) 01/12/20 08:00 Ur Specific [place] 1.016 01/12/20 08:00 Urine Protein NEGATIVE mg/dL (NEGATIVE) 01/12/20 08:00 Urine Glucose (UA) NEGATIVE mg/dL (NEGATIVE) 01/12/20 08:00 Urine Ketones 80 mg/dL (NEGATIVE) H 01/12/20 08:00 Urine Blood NEGATIVE (NEGATIVE) 01/12/20 08:00 Urine Nitrite NEGATIVE (NEGATIVE) 01/12/20 08:00 Urine Bilirubin NEGATIVE (NEGATIVE) 01/12/20 08:00 Urine Urobilinogen NEGATIVE mg/dL (<2.0) 01/12/20 08:00 Ur Leukocyte Esterase NEGATIVE (NEGATIVE) 01/12/20 08:00 Urine WBC (Auto) 0 /HPF 01/12/20 08:00 Urine Mucus (Auto) RARE /LPF 01/12/20 08:00 Urine Ascorbic Acid NEGATIVE (NEGATIVE) 01/12/20 08:00 Urine Opiates Screen NEGATIVE 01/12/20 08:00 Urine Methadone Screen NEGATIVE 01/12/20 08:00 Ur Barbiturates Screen NEGATIVE 01/12/20 08:00 Ur Phencyclidine Scrn NEGATIVE 01/12/20 08:00 Ur Amphetamines Screen NEGATIVE 01/12/20 08:00 U Benzodiazepines Scrn NEGATIVE 01/12/20 08:00 Urine Cocaine Screen NEGATIVE 01/12/20 08:00 U Marijuana (THC) Screen UNCONFIRMED POSITIVE 01/12/20 08:00 Serum Alcohol < 10 mg/dL (NONE DETECTED) 01/12/20 06:17 01/12/20 06:17 Troponin I < 0.012 Impressions: Chest X-Ray 01/12/20 06:58 IMPRESSION: Hiatal hernia with no acute cardiopulmonary disease. Abdomen/Pelvis CT 01/12/20 07:05 IMPRESSION: Development of peripancreatic stranding, concerning for acute pancreatitis superimposed upon chronic pancreatitis. Recommend correlation with amylase and lipase. Large hiatal hernia. Small amount of free fluid within the pelvis. TECHNICAL DOCUMENTATION: Quality ID # [id number]: Final reports with documentation of one or more dose reduction techniques (e.g., Automated exposure control, adjustment of the mA and/or kV according to patient size, use of iterative reconstruction technique) copyright 2011 [employer]- All Rights Reserved Plan Time Spent: Greater than 30 Minutes Stroke Is this a Stroke Patient?: No Acute Heart Failure - Is this a Heart Failure Patient?: No
== END 2020-01-14 10:26 | disposition home or self-care (01) | DRG 440 ==
LOC: ER 05:48 → EH 09:30 → 4W 11:14
PROVIDERS: ADMIT Family Medicine; ATTEND Family Medicine
DX: K85.20 Alcohol induced acute pancreatitis without necrosis or infection (principal); K86.0 Alcohol-induced chronic pancreatitis; E86.0 Dehydration; I50.9 Heart failure, unspecified; I11.0 Hypertensive heart disease with heart failure; E78.00 Pure hypercholesterolemia, unspecified; I25.10 Atherosclerotic heart disease of native coronary artery without angina pectoris; J44.9 Chronic obstructive pulmonary disease, unspecified; K21.9 Gastro-esophageal reflux disease without esophagitis; K44.9 Diaphragmatic hernia without obstruction or gangrene; F41.8 Other specified anxiety disorders; F17.210 Nicotine dependence, cigarettes, uncomplicated; F10.20 Alcohol dependence, uncomplicated; Y90.0 Blood alcohol level of less than 20 mg/100 ml; Z86.73 Personal history of transient ischemic attack (TIA), and cerebral infarction without residual deficits
CPT/HCPCS: 36415; 71045; 74176; 80048; 80053; 80307; 81001; 82803; 82962; 83605; 83690; 84484; 85025; 85027; 85610; 85730; 93005; 93010; 96361; 96374; 96375; 99285; C9113; J1200; J1644; J2270; J2405; J3490; J7040; J7120

== ENCOUNTER 2020-02-12 02:24 | Emergency (ER) | payer OTHER ==
[2020-02-12 04:43] LABS: ABSOLUTE LYMPHOCYTES (AUTO) 0.4 10^3/uL (0.5-4.7); ABSOLUTE MONOCYTES (AUTO) 0.4 10^3/uL (0.1-1.4); ABSOLUTE NEUT (AUTO) 3.2 10^3/uL (1.7-8.2); BASOPHILS % (AUTO) 0.4 % (0-2); EOSINOPHILS % (AUTO) 0.7 % (0-6); HEMOGLOBIN 12.4 g/dL (13.5-17.0); LYMPHOCYTES % (AUTO) 10.2 % (13-45); MEAN CORPUSCULAR HEMOGLOBIN 28.8 pg (27.0-33.4); MEAN CORPUSCULAR HGB CONC 33.4 g/dL (32.0-36.0); MEAN CORPUSCULAR VOLUME 86 fl (80-97); MONOCYTES % (AUTO) 9.9 % (3-13); PLATELET COUNT 200 10^3/uL (150-450); RED BLOOD COUNT 4.29 10^6/uL (4.35-5.55); RED CELL DISTRIBUTION WIDTH 15.7 % (11.5-14.0); SEGMENTED NEUTROPHILS % (AUTO) 78.8 % (42-78); TOTAL CELLS COUNTED % (AUTO) 100 %
[2020-02-12 04:58] LABS: ALBUMIN 3.5 g/dL (3.5-5.0); ALKALINE PHOSPHATASE 91 U/L (38-126); ASPARTATE AMINO TRANSFERASE 23 U/L (17-59); BILIRUBIN,TOTAL 0.5 mg/dL (0.2-1.3); BLOOD UREA NITROGEN 8 mg/dL (7-20); CALCIUM 9.2 mg/dL (8.4-10.2); CARBON DIOXIDE 29 mmol/L (22-30); CHLORIDE 103 mmol/L (98-107); GLUCOSE 124 mg/dL (75-110); TOTAL PROTEIN 6.9 g/dL (6.3-8.2)
[2020-02-12] MEDS: RINGERS SOLUTION,LACTATED 1,000 ML IV PRN ×2 (05:11→06:24)
[2020-02-12 05:16] LABS: ANION GAP 4 (5-19)
[2020-02-12] MEDS ORDERED: ONDANSETRON HCL INJ/PF 4 MG/2 ML SDV IV ONE (05:18)
[2020-02-12] MEDS ORDERED: MORPHINE SULFATE 10 MG/ML INJ IV ONE (05:18)
[2020-02-12] MEDS ORDERED: DIPHENHYDRAMINE HCL 50 MG/ML VIAL IV ONE (05:18)
--- NOTE | 2020-02-12 05:38 | ER Document Report ---
ED General - General TRAVEL OUTSIDE OF THE [place] IN LAST 30 DAYS: No - Related Data Home Medications: thiamine, amitriptylinme, lisinopril, gabapentin <PETRA LINDQUIST - Last Filed: 02/12/20 05:51> <LEVAR BECKER IV - Last Filed: 02/12/20 10:35> - General Chief Complaint: Abdominal Pain Stated Complaint: ABDOMINAL PAIN Time Seen by Provider: 02/12/20 04:53 [facility] [[facility]] - Follow up as needed Notes: 64-year-old male with history of chronic pancreatitis presents the emergency department stating that his pancreatitis has been flaring on and off for the past 2 to 3 weeks but is been, constant and worse for the past 4 days. Complains of epigastric abdominal pain, nausea, vomiting and sweats and chills. States that he did have diarrhea but has since resolved. States that the pain in the vomiting worsens every time he eats or drinks anything including water. States he has had a cholecystectomy, states he has never been told why he has pancreatitis. Denies drinking or any history of prior alcohol use. Review of the medical records shows that patient has a history of alcohol induced pancreatitis. (PETRA LINDQUIST) - Related Data Allergies/Adverse Reactions: coffee (Coffea arabica) [Coffee] Allergy (Verified 09/26/19 08:38) Iodinated Contrast Media [IV Dye, Iodine Containing] Allergy (Verified 09/26/19 08:38) iodine [Iodine] Allergy (Verified 09/26/19 08:38) Shellfish * [Shellfish] Allergy (Verified 09/26/19 08:38) Past Medical History - General Information source: Patient - Social History Smoking Status: Current Every Day Smoker Frequency of alcohol use: denies, but records show h/o alcohol use Drug Abuse: Marijuana Family History: Arthritis, CAD - Sister, DM, Hyperlipidemia, Hypertension Patient has homicidal ideation: No - Past Medical History Cardiac Medical History: Reports: Hx Congestive Heart Failure, Hx Coronary Artery Disease, Hx Hypercholesterolemia, Hx Hypertension Denies: Hx Heart Attack Pulmonary Medical History: Reports: Hx Asthma, Hx COPD Neurological Medical History: Reports: Hx Cerebrovascular Accident - NO DEFICITS. Denies: Hx Seizures Endocrine Medical History: Reports: Hx Diabetes Mellitus Type 1, Hx Diabetes Mellitus Type 2 Renal/ Medical History: Denies: Hx Peritoneal Dialysis GI Medical History: Reports: Hx Gastroesophageal Reflux Disease, Hx Hepatitis - History of hepatitis C in the past., Hx Hiatal Hernia, Hx Pancreatitis. Denies: Hx Ulcer Musculoskeletal Medical History: Reports Hx Arthritis - Chronic lower back pain Psychiatric Medical History: Reports: Hx Anxiety, Hx Bipolar Disorder, Hx Depression Infectious Medical History: Reports: Hx Hepatitis - History of hepatitis C in the past., Hx HIV Past Surgical History: Reports: Hx Abdominal Surgery, Hx Cholecystectomy. Denies: Hx Open Heart Surgery, Hx Pacemaker - Immunizations Immunizations up to date: No Hx Diphtheria, Pertussis, Tetanus Vaccination: Yes Hx Pneumococcal Vaccination: 08/08/12 <AMEENAPETRA - Last Filed: 02/12/20 05:51> Review of Systems - Review of Systems Constitutional: No symptoms reported EENT: No symptoms reported Cardiovascular: No symptoms reported Gastrointestinal: See HPI, Abdominal pain, Diarrhea, Nausea, Vomiting Genitourinary: No symptoms reported -: Yes All other systems reviewed and negative <PETRA LINDQUIST - Last Filed: 02/12/20 05:51> Physical Exam - Vital signs Interpretation: Tachycardic <AMEENAPETRA - Last Filed: 02/12/20 05:51> - Vital signs Vitals: Temp Pulse Resp BP Pulse Ox 98.2 F 116 H 20 133/81 H 98 02/12/20 03:13 02/12/20 03:13 02/12/20 03:13 02/12/20 03:13 02/12/20 03:13 - Notes Notes: GENERAL: Alert, interacts well. Appears mildly uncomfortable. HEAD: Normocephalic, atraumatic EYES: Pupils equal, round and reactive to light, extraocular movements intact. ENT: Oral mucosa moist, tongue midline. NECK: Full range of motion, supple, trachea midline. LUNGS: Clear to auscultation bilaterally, no wheezes, rales or rhonchi, no respiratory distress. HEART: Regular rate and rhythm, no murmurs, gallops, rubs. ABDOMEN: Soft, epigastric tenderness to palpation, nondistended, bowel sounds present in all 4 quadrants. EXTREMITIES: Moves all 4 extremities spontaneously, no edema, radial and dorsalis pedis pulses 2/4 bilaterally. No cyanosis. NEUROLOGICAL: Alert and oriented x3, normal speech. PSYCH: Normal mood, normal affect. SKIN: Warm, Dry, normal turgor, no rashes or lesions noted. (PETRA LINDQUIST) Course - Laboratory Result Diagrams: 02/12/20 04:34 02/12/20 04:34 <PETRA LINDQUIST - Last Filed: 02/12/20 05:51> - Laboratory Result Diagrams: 02/12/20 04:34 02/12/20 04:34 - Diagnostic Test Radiology reviewed: Reports reviewed <LEVAR BECKER IV - Last Filed: 02/12/20 10:35> - Re-evaluation Re-evalutation: 02/12/20 05:58 CBC shows anemia with a hemoglobin 12.9, no leukocytosis, platelets normal, chemistries unremarkable, lipase elevated at 7002.7, this is 20 halftimes higher than prior admission on 01/11/2021 it was 2699.7. Urinalysis is pending. Alcohol level is pending. CT scan of the abdomen pelvis to look at the pancreas is pending. 02/12/20 05:58 Patient will be given IV fluids, pain and nausea medication and then we will attempt to give the patient oral fluids. Depending on his response to therapy he may need to be admitted. (PETRA LINDQUIST) 02/12/20 10:18 Patient has been resting in his bed. He is tolerating p.o. fluids and p.o. pain medications without difficulty. His CT abdomen pelvis is showing inflammatory changes of pancreatitis similar to prior CT scans on the same patient. Plan discharge home with prescription for pain and nausea medication. (LEVAR BECKER IV) - Vital Signs Vital signs: Temp Pulse Resp BP Pulse Ox 98.2 F 105 H 20 154/90 H 99 02/12/20 03:13 02/12/20 07:32 02/12/20 03:13 02/12/20 09:01 02/12/20 09:01 - Laboratory Laboratory results interpreted by la: 02/12/20 02/12/20 04:34 04:34 RBC 4.29 L Hgb 12.4 L Hct 37.0 L RDW 15.7 H Lymph % (Auto) 10.2 L Absolute Lymphs (auto) 0.4 L Seg Neutrophils % 78.8 H Sodium 135.9 L Anion Gap 4 L Glucose 124 H Lipase 7002.7 H Discharge <PETRA LINDQUIST - Last Filed: 02/12/20 05:51> <LEVAR BECKER IV - Last Filed: 02/12/20 10:35> - Discharge Clinical Impression: Pancreatitis, acute Qualifiers: Pancreatitis type: unspecified pancreatitis type Acute pancreatitis complication: unspecified Qualified Code(s): K85.90 - Acute pancreatitis without necrosis or infection, unspecified Condition: Stable Disposition: HOME, SELF-CARE Additional Instructions: Return to the Emergency Department without delay if any worse. HOME CARE INSTRUCTIONS & INFORMATION: Thank you for choosing us for your medical needs. We hope you're satisfied with the care you received. After you leave, you must properly care for your problem and, at the same time, observe its progress. Any condition can change. Some illnesses can change rapidly over hours or days. If your condition worsens, return to the Emergency Department or see your physician promptly. ABOUT YOUR X-RAYS AND EKG'S: If you had an EKG or X-rays taken, they have been read by the Emergency Physician. The X-rays and EKG's will also be read by a Radiologist or [facility] within 24 hours. If discrepancies are noted, you will be notified by telephone. Please be certain the ED has a correct telephone number & address where you can be reached. Also, realize that some fractures or abnormalities do not show up on initial X-rays. If your symptoms continue, see your physician. ABOUT YOUR LABORATORY TEST: If you had laboratory tests, the results have been reviewed by the Emergency Physician. Some test results (for example cultures) may not be available for several days. You will be contacted if any test result shows you need additional treatment. Please be certain the ED has a correct telephone number and address where you can be reached. ABOUT YOUR MEDICATIONS: You will receive instructions on how to take your medicine on the prescription label you receive. Additional information may be provided by the Pharmacy. If you have questions afterwards, call the ED for clarification or further instructions. Some prescribed medications may cause drowsiness. Do not perform tasks such as driving a car or operating machinery w ithout consulting your Pharmacist. If you feel you need a refill of pain medication, your condition will need re-evaluation. Please do not call for a refill of any medication. ABOUT YOUR SIGNATURE: Signature of this document acknowledges to followin. Understanding that you received emergency treatment and that you may be released before al medical problems are known or treated. Please be certain the ED has a correct phone number & address where you can be reached. 2. Acknowledgement that you will arrange for follow-up care as recommended. 3. Authorization for the Emergency Physician to provide information to your follow-up Physician in order to maximize your care. AT ANY TIME, IF YOUR SYMPTOMS CHANGE SIGNIFICANTLY OR WORSEN OR YOU DEVELOP NEW SYMPTOMS, RETURN TO THE EMERGENCY DEPARTMENT IMMEDIATELY FOR RE-EVALUATION. OUR GOAL IS TO PROVIDE EXCELLENT MEDICAL CARE! WE HOPE THAT WE HAVE MET YOUR EXPECTATIONS DURING YOUR EMERGENCY DEPARTMENT VISIT AND THAT YOU FEEL YOU HAVE RECEIVED EXCELLENT CARE! Pancreatitis Pancreatitis is an inflammation of the pancreas, an organ at the back of your abdomen. The pancreas produces insulin and enzymes that digest your food. Pancreatitis can be caused by gallstones in the bile duct, by alcohol or viruses, or by excess fat or calcium in the blood stream. Occasionally, pancreatitis occurs when a stomach ulcer ely through into the pancreas. We try to find the cause of pancreatitis, but some tests can't be done until the pancreas heals. The usual symptoms of pancreatitis are pain in the pit of the stomach that goes straight through to the back, vomiting, and low-grade fever. Severe cases require hospital admission, but many patients with mild pancreatitis do well at home. You will probably need medicine for pain and for vomiting. Sometimes we prescribe medicine to decrease stomach acid secretion and to decrease flow of pancreatic juices. Start with a diet of clear liquids (soda pop, juices). When the pain is decreasing, you can add some simple starches (potato, toast, applesauce). Avoid proteins and fats until you are completely painfree. When you're better, your doctor may suggest treatment to prevent future pancreatitis (such as gallbladder removal). Avoid alcohol forever. Get immediate treatment for any future episodes. Contact your doctor at once or return here if you have increasing pain, shortness of breath, general swelling, increasing size of the abdomen, continued vomiting, muscle spasms, or other new symptoms. Prescriptions: Hydrocodone/Acetaminophen [[place] 5-325 mg Tablet] 1 tab PO Q6HP PRN #10 tablet PRN Reason: pain Ondansetron [Zofran Odt 4 mg Tablet] 4 mg PO Q8HP PRN #10 tab.rapdis PRN Reason: [facility]errals: [facility] [Primary [facility]] - Follow up as needed
[2020-02-12 06:00] LABS: APPEARANCE,URINE CLEAR; BILIRUBIN,URINE NEGATIVE (NEGATIVE); COLOR,URINE YELLOW; GLUCOSE, URINE NEGATIVE (NEGATIVE); KETONES,URINE NEGATIVE (NEGATIVE); LEUKOCYTE ESTERASE,URINE NEGATIVE (NEGATIVE); NITRITE,URINE NEGATIVE (NEGATIVE); PROTEIN,URINE NEGATIVE (NEGATIVE); URINE SPECIFIC GRAVITY 1.011; UROBILINOGEN,URINE NEGATIVE mg/dL (<2.0)
--- NOTE | 2020-02-12 06:44 | RADIOLOGY REPORT (SQ) ---
CLINICAL HISTORY: pancreatitis, allergic to contrast COMPARISON: 02/11/2020. TECHNIQUE: CT ABDOMEN PELVIS WITHOUT IV CONTRAST on 02/12/2020 5:49 AM CDT This exam was performed according to our departmental dose-optimization program, which includes automated exposure control, adjustment of the mA and/or kV according to patient size and/or use of iterative reconstruction technique. FINDINGS: Lower lungs are clear. Abdomen: The liver is normal in appearance. There is no biliary dilatation. There is a moderate hiatal hernia. Cholecystectomy was performed. There is moderate inflammation surrounding the pancreas. There are multiple coarse calcifications in the pancreatic head. There are multiple surgical clips in the right upper quadrant. The adrenal glands and kidneys are unremarkable. Abdominal aorta is normal in course and caliber without aneurysm. There is no free air. There is no retroperitoneal adenopathy. Pelvis: There is no bowel obstruction. Urinary bladder is unremarkable. There is small amount of free pelvic fluid. Appendix is normal. Skeleton: There are no acute osseous findings. No suspicious bony lesions. IMPRESSION: Relatively unchanged mild diffuse pancreatitis.
[2020-02-12] MEDS ORDERED: NORMAL SALINE 500 ML IV ONE (07:10)
[2020-02-12] MEDS ORDERED: OXYCODONE-ACETAMINOPHEN 5-325 MG TABLET PO ONE (07:10)
[2020-02-12] MEDS ORDERED: HYDROCODONE/ACETAMINOPHEN 5-325 MG (6 TAB/ER DISP) PO PRN (10:33)
[2020-02-12] MEDS ORDERED: ONDANSETRON ODT 4 MG TAB (6 TAB/ER DISP) PO PRN (10:33)
[2020-02-12 10:55] VITALS: BP 131/81
== END 2020-02-12 10:58 | disposition home or self-care (01) ==
LOC: ER 02:24
DX: K85.90 Acute pancreatitis without necrosis or infection, unspecified (principal); D64.9 Anemia, unspecified; F12.10 Cannabis abuse, uncomplicated; F17.200 Nicotine dependence, unspecified, uncomplicated; I10 Essential (primary) hypertension; I25.10 Atherosclerotic heart disease of native coronary artery without angina pectoris; R00.0 Tachycardia, unspecified; Z86.73 Personal history of transient ischemic attack (TIA), and cerebral infarction without residual deficits; Z86.19 Personal history of other infectious and parasitic diseases; Z90.49 Acquired absence of other specified parts of digestive tract
CPT/HCPCS: 99284; 96361; 96374; 96375; 36415; 80307; 83690; 85025; 80053; 81001; 74176; J1200; J2270; J2405; J7040; J7120

== ENCOUNTER 2020-03-09 12:12 | Emergency (ER) | payer MEDICARE, OTHER ==
[2020-03-09 12:18] VITALS: BP 102/50
--- NOTE | 2020-03-09 13:04 | ER Document Report ---
ED Medical Screen (RME) - General Stated Complaint: EYE PROBLEM Time Seen by Provider: 03/09/20 12:59 Primary Care Provider: JESSY,YULISSA [Primary Care Provider] - Follow up as needed Notes: HPI: 64-year-old male presenting stating he wants treatment for syphilis. States that he is following for right eye issue where he is blurring of vision with a retinal center and they [place] blood work on him last week, called him 5 days ago and told him that he needed to be treated for syphilis and to come to the emergency department. Patient states he could not get here during the week so decided to come in today. He denies other physical complaints other than the blurring of the right eye. PHYSICAL EXAMINATION: There are no records in the hospital chart suggesting blood work was done through the hospital with a positive syphilis test. Patient denies abdominal pain, records do reveal that he was seen several weeks ago for pancreatitis with an elevated lipase. Patient does not appear jaundiced I have greeted and performed a rapid initial assessment of this patient. A comprehensive ED assessment and evaluation of the patient, analysis of test results and completion of medical decision making process will be conducted by an additional ED providers. TRAVEL OUTSIDE OF THE [place] IN LAST 30 DAYS: No - Related Data Allergies/Adverse Reactions: coffee (Coffea arabica) [Coffee] Allergy (Verified 09/26/19 08:38) Iodinated Contrast Media [IV Dye, Iodine Containing] Allergy (Verified 09/26/19 08:38) iodine [Iodine] Allergy (Verified 09/26/19 08:38) Shellfish * [Shellfish] Allergy (Verified 09/26/19 08:38) Past Medical History - Past Medical History Cardiac Medical History: Reports: Hx Congestive Heart Failure, Hx Coronary Artery Disease, Hx Hypercholesterolemia, Hx Hypertension Denies: Hx Heart Attack Pulmonary Medical History: Reports: Hx Asthma, Hx COPD Neurological Medical History: Reports: Hx Cerebrovascular Accident - NO DEFICITS. Denies: Hx Seizures Endocrine Medical History: Reports: Hx Diabetes Mellitus Type 1, Hx Diabetes Mellitus Type 2 Renal/ Medical History: Denies: Hx Peritoneal Dialysis GI Medical History: Reports: Hx Gastroesophageal Reflux Disease, Hx Hepatitis - History of hepatitis C in the past., Hx Hiatal Hernia, Hx Pancreatitis. Denies: Hx Ulcer Musculoskeltal Medical History: Reports Hx Arthritis - Chronic lower back pain Psychiatric Medical History: Reports: Hx Anxiety, Hx Bipolar Disorder, Hx Depression Infectious Medical History: Reports: Hx Hepatitis - History of hepatitis C in the past., Hx HIV Past Surgical History: Reports: Hx Abdominal Surgery, Hx Cholecystectomy. Denies: Hx Open Heart Surgery, Hx Pacemaker - Immunizations Immunizations up to date: No Hx Diphtheria, Pertussis, Tetanus Vaccination: Yes Physical Exam - Vital signs Vitals: Temp Pulse Resp BP Pulse Ox 98.8 F 84 16 102/50 L 97 03/09/20 12:03/09/20 12:03/09/20 12:03/09/20 12:17 03/09/20 12:17 Course - Vital Signs Vital signs: Temp Pulse Resp BP Pulse Ox 98.8 F 84 16 102/50 L 97 03/09/20 12:17 03/09/20 12:17 03/09/20 12:17 03/09/20 12:17 03/09/20 12:17 Doctor's Discharge - Discharge Referrals: [facility] [[facility]] - Follow up as needed
[2020-03-09 14:43] LABS: ALBUMIN 3.7 g/dL (3.5-5.0); ALKALINE PHOSPHATASE 93 U/L (38-126); ASPARTATE AMINO TRANSFERASE 25 U/L (17-59); BILIRUBIN,DIRECT 0.1 mg/dL (0.0-0.4); BILIRUBIN,TOTAL 0.5 mg/dL (0.2-1.3); BLOOD UREA NITROGEN 8 mg/dL (7-20); CALCIUM 9.2 mg/dL (8.4-10.2); CHLORIDE 109 mmol/L (98-107); GLUCOSE 115 mg/dL (75-110); POTASSIUM 4.3 mmol/L (3.6-5.0); TOTAL PROTEIN 7.2 g/dL (6.3-8.2)
[2020-03-09 14:48] LABS: CARBON DIOXIDE 29 mmol/L (22-30)
[2020-03-09 14:51] LABS: ANION GAP 4 (5-19)
[2020-03-09 15:23] LABS: ABSOLUTE EOSINOPHILS # (AUTO) 0.1 10^3/uL (0.0-0.6); ABSOLUTE LYMPHOCYTES (AUTO) 0.7 10^3/uL (0.5-4.7); ABSOLUTE MONOCYTES (AUTO) 0.3 10^3/uL (0.1-1.4); ABSOLUTE NEUT (AUTO) 1.9 10^3/uL (1.7-8.2); BASOPHILS % (AUTO) 0.4 % (0-2); EOSINOPHILS % (AUTO) 2.2 % (0-6); HEMATOCRIT 31.8 % (37.9-51.0); HEMOGLOBIN 10.4 g/dL (13.5-17.0); LYMPHOCYTES % (AUTO) 23.5 % (13-45); MEAN CORPUSCULAR HEMOGLOBIN 27.7 pg (27.0-33.4); MEAN CORPUSCULAR HGB CONC 32.7 g/dL (32.0-36.0); MEAN CORPUSCULAR VOLUME 85 fl (80-97); MONOCYTES % (AUTO) 9.8 % (3-13); PLATELET COUNT 271 10^3/uL (150-450); RED BLOOD COUNT 3.76 10^6/uL (4.35-5.55); RED CELL DISTRIBUTION WIDTH 15.9 % (11.5-14.0); SEGMENTED NEUTROPHILS % (AUTO) 64.1 % (42-78); TOTAL CELLS COUNTED % (AUTO) 100 %
[2020-03-09 16:24] LABS: CHLAM PCR NOT DETECTED (NOT DETECT)
--- NOTE | 2020-03-09 22:32 | ER Document Report ---
ED General - General Chief Complaint: STD Exposure Stated Complaint: EYE PROBLEM Time Seen by Provider: 03/09/20 12:59 [facility] [[facility] - Follow up as needed Notes: This 64-year-old man presents to the emergency department with a history that he was seen at the retinal clinic in [facility] last week. He was told that he had eye findings suggestive of syphilis. He was contacted on and told that his tests were positive and that he should go to the hosp ital and seek treatment for syphilis. Patient states that he was told that someone would call and send his results to the hospital. He has no other documentation with him. I have contacted Dr. Gannon who is on-call for the ophthalmology group, he states that the patient's VDRL and RPR are both pos itive, he has right eye blurriness and findings suggestive of possible neuro syphilis. He states that the patient was directed to get care, lumbar puncture, antibiotic treatment for possible neurosyphilis. TRAVEL OUTSIDE OF THE [place] IN LAST 30 DAYS: No - Related Data Allergies/Adverse Reactions: coffee (Coffea arabica) [Coffee] Allergy (Verified 03/09/20 14:49) Iodinated Contrast Media [IV Dye, Iodine Containing] Allergy (Verified 03/09/20 14:49) iodine [Iodine] Allergy (Verified 03/09/20 14:49) Shellfish * [Shellfish] Allergy (Verified 03/09/20 14:49) Past Medical History - Social History Smoking Status: Current Every Day Smoker Frequency of alcohol use: None Drug Abuse: Marijuana Family History: Arthritis, CAD - Sister, DM, Hyperlipidemia, Hypertension - Past Medical History Cardiac Medical History: Reports: Hx Congestive Heart Failure, Hx Coronary Artery Disease, Hx Hypercholesterolemia, Hx Hypertension Denies: Hx Heart Attack Pulmonary Medical History: Reports: Hx Asthma, Hx COPD Neurological Medical History: Reports: Hx Cerebrovascular Accident - NO DEFICITS. Denies: Hx Seizures Endocrine Medical History: Reports: Hx Diabetes Mellitus Type 1, Hx Diabetes Mellitus Type 2 Renal/ Medical History: Denies: Hx Peritoneal Dialysis GI Medical History: Reports: Hx Gastroesophageal Reflux Disease, Hx Hepatitis - History of hepatitis C in the past., Hx Hiatal Hernia, Hx Pancreatitis. Denies: Hx Ulcer Musculoskeletal Medical History: Reports Hx Arthritis - Chronic lower back pain Psychiatric Medical History: Reports: Hx Anxiety, Hx Bipolar Disorder, Hx Depression Infectious Medical History: Reports: Hx Hepatitis - History of hepatitis C in the past., Hx HIV Past Surgical History: Reports: Hx Abdominal Surgery, Hx Cholecystectomy. Denies: Hx Open Heart Surgery, Hx Pacemaker - Immunizations Immunizations up to date: No Hx Diphtheria, Pertussis, Tetanus Vaccination: Yes Hx Pneumococcal Vaccination: 08/08/12 Review of Systems - Review of Systems Notes: Constitutional: Negative for fever. HENT: Negative for sore throat. Eyes: Right eye blurriness Cardiovascular: Negative for chest pain. Respiratory: Negative for shortness of breath. Gastrointestinal: Negative for abdominal pain, vomiting or diarrhea. Genitourinary: Negative for dysuria. Musculoskeletal: Negative for back pain. Skin: Negative for rash. Neurological: Negative for headaches, weakness or numbness, negative imbalance, negative speech or visual changes except the right eye. 10 point ROS negative except as marked above and in HPI. Physical Exam - Vital signs Vitals: Temp Pulse Resp BP Pulse Ox 98.8 F 84 16 102/50 L 97 03/09/20 12:17 03/09/20 12:17 03/09/20 12:17 03/09/20 12:17 03/09/20 12:17 - Notes Notes: PHYSICAL EXAMINATION: Physical Exam: General: Well-nourished well-developed 64-year-old man in no acute distress HEENT: NC/AT, pupils equal round and reactive to light, MM moist,nares clear, oropharynx clear, airway patent Neck: supple, no adenopathy, no masses. Good range of motion Lungs: clear, no wheezing, no rales no rhonchi CVS: Regular rate and rhythm no murmur gallop or rub Abdomen: Soft, active, nontender, no masses, no hepatosplenomegaly Ext: No edema, clubbing or cyanosis. Neuro: Alert and responsive, moving all 4 extremities on command, cranial nerves intact, no focal findings Skin: Intact no open lesions, no rash Course - Re-evaluation Re-evalutation: 03/09/20 22:30 I discussed with the patient the need to have a lumbar puncture performed to see if there are findings suggestive of neurosyphilis. The patient refuses to have a lumbar puncture and states that he was sent here for treatment. I explained that the CSF (cerebrospinal fluid) is how the diagnosis of neurosyphilis is made. The patient adamantly refuses and states that he is going to leave. After much discussion, and attempts to convince him that the treatment is the term and by the findings of the CSF, the patient requested to go. I have encouraged him to follow-up with some provider, [facility], or have the bridal gown fitter send him to infectious disease at a tertiary care center so that he can get the evaluation and treatment that he may need. Patient signed out AMA. 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
== END 2020-03-09 17:13 | disposition left against medical advice (07) ==
LOC: ER 12:12
DX: A52.3 Neurosyphilis, unspecified (principal); F17.200 Nicotine dependence, unspecified, uncomplicated; F12.10 Cannabis abuse, uncomplicated; I25.10 Atherosclerotic heart disease of native coronary artery without angina pectoris; I10 Essential (primary) hypertension; J44.9 Chronic obstructive pulmonary disease, unspecified; E11.9 Type 2 diabetes mellitus without complications; Z91.018 Allergy to other foods; Z91.041 Radiographic dye allergy status; Z91.013 Allergy to seafood; Z53.20 Procedure and treatment not carried out because of patient's decision for unspecified reasons
CPT/HCPCS: 36415; 80053; 83690; 85025; 86592; 87491; 87591; 99284

== ENCOUNTER 2020-03-26 10:21 | Emergency (ER) | payer OTHER ==
--- NOTE | 2020-03-26 10:36 | ER Document Report ---
ED Medical Screen (RME) - General Stated Complaint: EYE PAIN Time Seen by Provider: 03/26/20 10:25 [facility] [[facility]] - Follow up as needed Mode of Arrival: Ambulatory Information source: Patient Notes: HPI; 64-year-old male presents emergency room complaining of ongoing blurry and foggy vision for the past several weeks patient states he has been seen by [facility] in [place] [facility] States he was told on Tuesday that he has syphilis and needed to have a spinal tap. States [facility]. PE: Oriented x3. No acute distress noted. Lungs: Clear to auscultation without rales, rhonchi, wheezes. Heart: Regular rate rhythm without murmurs, rubs, gallops. Unable to do full eye exam in triage I have greeted and performed a rapid initial assessment of this patient. A comprehensive ED assessment and evaluation of the patient, analysis of test results and completion of the medical decision making process will be conducted by additional ED providers. I have specifically instructed the patient or family members with the patient to immediately return to any nursing staff should anything change in the patient's condition or with their chief complaint. TRAVEL OUTSIDE OF THE [place] IN LAST 30 DAYS: No - Related Data Allergies/Adverse Reactions: coffee (Coffea arabica) [Coffee] Allergy (Verified 03/26/20 10:23) Iodinated Contrast Media [IV Dye, Iodine Containing] Allergy (Verified 03/26/20 10:23) iodine [Iodine] Allergy (Verified 03/26/20 10:23) Shellfish * [Shellfish] Allergy (Verified 03/26/20 10:23) Past Medical History - Past Medical History Cardiac Medical History: Reports: Hx Congestive Heart Failure, Hx Coronary Artery Disease, Hx Hypercholesterolemia, Hx Hypertension Denies: Hx Heart Attack Pulmonary Medical History: Reports: Hx Asthma, Hx COPD Neurological Medical History: Reports: Hx Cerebrovascular Accident - NO DEFICITS. Denies: Hx Seizures Endocrine Medical History: Reports: Hx Diabetes Mellitus Type 1, Hx Diabetes Mellitus Type 2 Renal/ Medical History: Denies: Hx Peritoneal Dialysis GI Medical History: Reports: Hx Gastroesophageal Reflux Disease, Hx Hepatitis - History of hepatitis C in the past., Hx Hiatal Hernia, Hx Pancreatitis. Denies: Hx Ulcer Musculoskeltal Medical History: Reports Hx Arthritis - Chronic lower back pain Psychiatric Medical History: Reports: Hx Anxiety, Hx Bipolar Disorder, Hx Depression Infectious Medical History: Reports: Hx Hepatitis - History of hepatitis C in the past., Hx HIV Past Surgical History: Reports: Hx Abdominal Surgery, Hx Cholecystectomy. Denies: Hx Open Heart Surgery, Hx Pacemaker - Immunizations Immunizations up to date: No Hx Diphtheria, Pertussis, Tetanus Vaccination: Yes Physical Exam - Vital signs Vitals: Temp Pulse Resp BP Pulse Ox 97.4 F 94 16 107/70 100 03/26/20 10:24 03/26/20 10:24 03/26/20 10:24 03/26/20 10:24 03/26/20 10:24 Course - Vital Signs Vital signs: Temp Pulse Resp BP Pulse Ox 97.4 F 94 16 107/70 100 03/26/20 10:24 03/26/20 10:24 03/26/20 10:24 03/26/20 10:24 03/26/20 10:24 Doctor's Discharge - Discharge [facility]errals: [facility] [[facility]] - Follow up as needed
[2020-03-26] MEDS ORDERED: PENICILLIN G-K 5 MILLION UNIT VIAL IV ONE (14:13)
--- NOTE | 2020-03-26 16:07 | RADIOLOGY REPORT (SQ) ---
EXAM DESCRIPTION: PICC INSERTION IMAGES COMPLETED DATE/TIME: 03/26/2020 2:17 pm REASON FOR STUDY: neurosyphillis treatment COMPARISON: None. FLUOROSCOPY TIME: 17 seconds of fluoroscopy was used. 1 images saved to PACS. TECHNIQUE: Fluoroscopic and ultrasound guided PICC placement. LIMITATIONS: None. PROCEDURE: After written consent and assessment were obtained, the patient was brought into the fluo roscopy room and placed supine on the table. Ultrasound evaluation of potential access sites were per formed. After successfully identifying a patent left basilic vein, the left arm was prepped and drape d in a sterile fashion along with the ultrasound probe. The entry site was anesthetized with 1% lidoc steve. A 21 gauge 7 cm needle was advanced through the skin and into the basilic vein under live ultra sound guidance. An ultrasound image was saved to PACS confirming access site. A .018 guide wire was then inserted through the needle and into the venous system. The needle was then removed and an 11 b lade scalpel was used to make a 1cm skin incision. A 5 fr peel-away sheath was advanced over the wir e and into the venous system. A measurement was then made using the existing wire and live fluoroscop ic guidance. The wire was then removed and trimmed. The PICC was advanced through the peel-away sheat h and into the venous system. The peel-away sheath was removed and the catheter was adhered to the pa tients arm with a stat lock. The catheter was then aspirated and flushed and a sterile bandage was pl aced over the access site. A fluoroscopic spot image was saved to PACS confirming the catheter tip w ithin the superior vena cava. IMPRESSION: SUCCESSFUL PLACEMENT OF A 5 FR DUAL LUMEN 38 CM PICC IN THE LEFT BASILIC VEIN. COMMENT: Patient medication list reviewed: Yes- Quality ID# 130:Eligible professional attests to doc umenting in the medical record they obtained, updated, or reviewed the patient's current medications. . Quality ID 145: Final reports for procedures using fluoroscopy that document radiation exposure arian josselin, or exposure time and number of fluorographic images (if radiation exposure indices are not avail able) Quality ID #76: The patient was prepped and draped using maximum sterile barrier technique including cap, mask, sterile gown, sterile gloves, a large sterile sheet, hand hygiene, and 2% Chlorhexidine fo r cutaneous antisepsis. When ultrasound is used, sterile ultrasound techniques are followed requiring sterile gel and sterile probes. TECHNICAL DOCUMENTATION: JOB ID: [id number] 2010 [employer]- All Rights Reserved rev-12/23 Reading location - IP/workstation name: [id number]
--- NOTE | 2020-03-26 16:16 | ER Document Report ---
ED General - General Chief Complaint: Vision Problem Stated Complaint: EYE PAIN Time Seen by Provider: 03/26/20 10:25 [facility] [[facility]] - Follow up as needed Mode of Arrival: Ambulatory Information source: Patient TRAVEL OUTSIDE OF THE [place] IN LAST 30 DAYS: No - HPI Notes: Patient arrives stating that he needs a PICC line placed and IV antibiotics for sepsis. He states he recently had cataract surgery but was not healing from the surgery. He then states that he had multiple test done to figure out why he was not healing and it was determined that he had neurosyphilis. He states he was told he needed a lumbar puncture but he refuses to have this done. He states he was then told an alternative an option was to have a PICC line placed with penicillin administered. He states he was informed by the [facility] infectious disease hospital to come here to have this procedure and antibiotic administered. Patient states he is having some left eye pain that is been chronic since the surgery. Nothing makes this better or worse it is an aching sensation is mild to moderate intensity does not radiate. He denies any other significant concerns other than his vision has been changed since the surgery and has not improved. - Related Data Allergies/Adverse Reactions: coffee (Coffea arabica) [Coffee] Allergy (Verified 03/26/20 10:23) Iodinated Contrast Media [IV Dye, Iodine Containing] Allergy (Verified 03/26/20 10:23) iodine [Iodine] Allergy (Verified 03/26/20 10:23) Shellfish * [Shellfish] Allergy (Verified 03/26/20 10:23) Past Medical History - General Information source: Patient - Social History Smoking Status: Current Every Day Smoker Chew tobacco use (# tins/day): No Frequency of alcohol use: Occasional Drug Abuse: Marijuana Family History: Arthritis, CAD - Sister, DM, Hyperlipidemia, Hypertension Patient has homicidal ideation: No - Past Medical History Cardiac Medical History: Reports: Hx Congestive Heart Failure, Hx Coronary Artery Disease, Hx Hypercholesterolemia, Hx Hypertension Denies: Hx Heart Attack Pulmonary Medical History: Reports: Hx Asthma, Hx COPD Neurological Medical History: Reports: Hx Cerebrovascular Accident - NO DEFICITS. Denies: Hx Seizures Endocrine Medical History: Reports: Hx Diabetes Mellitus Type 1, Hx Diabetes Mellitus Type 2 Renal/ Medical History: Denies: Hx Peritoneal Dialysis GI Medical History: Reports: Hx Gastroesophageal Reflux Disease, Hx Hepatitis - History of hepatitis C in the past., Hx Hiatal Hernia, Hx Pancreatitis. Denies: Hx Ulcer Musculoskeletal Medical History: Reports Hx Arthritis - Chronic lower back pain Psychiatric Medical History: Reports: Hx Anxiety, Hx Bipolar Disorder, Hx Depression Infectious Medical History: Reports: Hx Hepatitis - History of hepatitis C in the past., Hx HIV Past Surgical History: Reports: Hx Abdominal Surgery, Hx Cholecystectomy. Denies: Hx Open Heart Surgery, Hx Pacemaker - Immunizations Immunizations up to date: No Hx Diphtheria, Pertussis, Tetanus Vaccination: Yes Hx Pneumococcal Vaccination: 08/08/12 Review of Systems - Review of Systems Constitutional: denies: Chills, Fever EENT: Eye pain, Blurred vision Cardiovascular: denies: Chest pain, Palpitations -: Yes All other systems reviewed and negative Physical Exam - Vital signs Vitals: Temp Pulse Resp BP Pulse Ox 97.4 F 94 16 107/70 100 03/26/20 10:24 03/26/20 10:24 03/26/20 10:24 03/26/20 10:24 03/26/20 10:24 Interpretation: Normal - General General appearance: Appears well, Alert - HEENT Head: Normocephalic, Atraumatic Visual acuity- Both eyes: 20/50 Corrective lenses worn: No Neck: Normal - Respiratory Respiratory status: No respiratory distress Chest status: Nontender Breath sounds: Normal Chest palpation: Normal - Cardiovascular Rhythm: Regular Heart sounds: Normal auscultation Murmur: No - Abdominal Inspection: Normal Distension: No distension Bowel sounds: Normal Tenderness: Nontender Organomegaly: No organomegaly - Back Back: Normal, Nontender - Extremities General upper extremity: Normal inspection, Nontender, Normal color, Normal ROM, Normal temperature General lower extremity: Normal inspection, Nontender, Normal color, Normal ROM, Normal temperature, Normal weight bearing. No: Brandyn's sign - Neurological Neuro grossly intact: Yes Cognition: Normal Orientation: AAOx4 [place] Coma Scale Eye Opening: Spontaneous [place] Coma Scale Verbal: Oriented [place] Coma Scale Motor: Obeys Commands [place] Coma Scale Total: 15 Speech: Normal Motor strength normal: LUE, RUE, LLE, RLE Sensory: Normal - Psychological Associated symptoms: Normal affect, Normal mood - Skin Skin Temperature: Warm Skin Moisture: Dry Skin Color: Normal Course - Re-evaluation Re-evalutation: 03/26/20 16:15 I called and discussed the case with the infectious disease doctor at the [facility] in [facility]. His name is Dr. Cochran. He states that he did not asked the patient to come here. However since the patient was already here the most prudent thing seems to be to place the PICC line for the patient and start a first dose of penicillin as a test dose. This test does have to be given in order for home health to arrange to continue the administration. Patient had the penicillin administered here it was 4,000,000 units. He tolerated it well and there was no adverse reaction. He will not be discharged home and I have spoken to a Mrs. Simmons at the [facility] home health network. She states that she will arrange for the patient to have penicillin administered at home starting tomorrow morning. - Vital Signs Vital signs: Temp Pulse Resp BP Pulse Ox 97.4 F 94 16 107/70 100 03/26/20 10:24 03/26/20 10:24 03/26/20 10:24 03/26/20 10:24 03/26/20 10:24 Discharge - Discharge Clinical Impression: Neurosyphilis in adult Condition: Stable Disposition: HOME, SELF-CARE Additional Instructions: Please proceed with home health administered penicillin starting tomorrow. If f or some reason home health does not arrive tomorrow to give you the penicillin by 12:00 noon, please call Dr. Cochran. [facility] [[facility]] - Follow up in 3-5 days
[2020-03-26 16:29] VITALS: BP 110/76
== END 2020-03-26 16:27 | disposition home or self-care (01) ==
LOC: ER 10:21
DX: A52.3 Neurosyphilis, unspecified (principal); H57.12 Ocular pain, left eye; H53.8 Other visual disturbances; F17.200 Nicotine dependence, unspecified, uncomplicated; I25.10 Atherosclerotic heart disease of native coronary artery without angina pectoris; I10 Essential (primary) hypertension; J44.9 Chronic obstructive pulmonary disease, unspecified; E11.9 Type 2 diabetes mellitus without complications; Z98.890 Other specified postprocedural states; Z21 Asymptomatic human immunodeficiency virus [HIV] infection status; Z91.018 Allergy to other foods; Z91.041 Radiographic dye allergy status; Z91.013 Allergy to seafood
CPT/HCPCS: 99285; 96365; 36573; J2540

== ENCOUNTER 2020-07-29 21:14 | Emergency (ER) | payer OTHER ==
[2020-07-29] MEDS ORDERED: NORMAL SALINE 1000 ML 1,000 ML IV ONE (21:42)
--- NOTE | 2020-07-29 21:42 | ER Document Report ---
ED GI/ - General Chief Complaint: Abdominal Pain >50 Stated Complaint: ABDOMINAL PAIN Time Seen by Provider: 07/29/20 21:41 Primary Care Provider: ADAM SZYMANSKI MD [NO LOCAL MD] - Follow up as needed Mode of Arrival: Medic Information source: Patient Notes: 64-year-old male patient with history of pancreatitis presenting to the emergency department chief complaint of generalized abdominal pain over the last 3 to 4 days. Patient reports pain is intermittent. He reports last alcohol consumption was approximately 2 weeks ago. He reports nausea without vomiting. Denies any diarrhea. He has received 75 mcg of fentanyl, 25 mg of Benadryl and a 500 cc fluid bolus by EMS. Patient reports his nausea has improved but his pain remains the same. He denies any fever or chills. TRAVEL OUTSIDE OF THE [place] IN LAST 30 DAYS: No - Related Data Allergies/Adverse Reactions: coffee (Coffea arabica) [Coffee] Allergy (Verified 07/29/20 21:19) Iodinated Contrast Media [IV Dye, Iodine Containing] Allergy (Verified 07/29/20 21:19) iodine [Iodine] Allergy (Verified 07/29/20 21:19) Shellfish * [Shellfish] Allergy (Verified 07/29/20 21:19) Past Medical History - General Information source: Patient - Social History Smoking Status: Current Every Day Smoker Frequency of alcohol use: Heavy Drug Abuse: None Family History: Reviewed & Not Pertinent, Arthritis, CAD - Sister, DM, Hyperlipidemia, Hypertension - Past Medical History Cardiac Medical History: Reports: Hx Congestive Heart Failure, Hx Coronary Artery Disease, Hx Hypercholesterolemia, Hx Hypertension Denies: Hx Heart Attack Pulmonary Medical History: Reports: Hx Asthma, Hx COPD Neurological Medical History: Reports: Hx Cerebrovascular Accident - NO DEFICITS . Denies: Hx Seizures Endocrine Medical History: Reports: Hx Diabetes Mellitus Type 1, Hx Diabetes Mellitus Type 2 Renal/ Medical History: Denies: Hx Peritoneal Dialysis GI Medical History: Reports: Hx Gastroesophageal Reflux Disease, Hx Hepatitis - History of hepatitis C in the past., Hx Hiatal Hernia, Hx Pancreatitis. Denies: Hx Ulcer Musculoskeletal Medical History: Reports Hx Arthritis - Chronic lower back pain Psychiatric Medical History: Reports: Hx Anxiety, Hx Bipolar Disorder, Hx Depression Infectious Medical History: Reports: Hx Hepatitis - History of hepatitis C in the past., Hx HIV Past Surgical History: Reports: Hx Abdominal Surgery, Hx Cholecystectomy. Denies: Hx Open Heart Surgery, Hx Pacemaker - Immunizations Immunizations up to date: No Hx Diphtheria, Pertussis, Tetanus Vaccination: Yes Hx Pneumococcal Vaccination: 08/08/12 Review of Systems - Review of Systems Gastrointestinal: Abdominal pain, Nausea -: Yes All other systems reviewed and negative Physical Exam - Vital signs Vitals: Temp Pulse Resp BP Pulse Ox 98.0 F 107 H 14 156/74 H 96 07/29/20 21:27 07/29/20 21:27 07/29/20 21:27 07/29/20 21:27 07/29/20 21:27 - Notes Notes: PHYSICAL EXAMINATION: GENERAL: Well-appearing, well-nourished and in no acute distress. HEAD: Atraumatic, normocephalic. EYES: Pupils equal round and reactive to light, extraocular movements intact, sclera anicteric, conjunctiva are normal. ENT: Nares patent, oropharynx clear without exudates. Moist mucous membranes. NECK: Normal range of motion, supple without lymphadenopathy LUNGS: Breath sounds clear to auscultation bilaterally and equal. No wheezes rales or rhonchi. HEART: Regular rate and rhythm without murmurs ABDOMEN: Soft, nondistended abdomen. Generalized tenderness to palpation. No guarding, no rebound. No masses appreciated. Musculoskeletal: Normal range of motion, no pitting or edema. No cyanosis. NEUROLOGICAL: Cranial nerves grossly intact. Normal speech. Normal sensory, motor exams PSYCH: Normal mood, normal affect. SKIN: Warm, Dry, normal turgor, no rashes or lesions noted. Course - Re-evaluation Re-evalutation: Lipase mildly elevated, otherwise laboratory investigations unremarkable. CT abdomen pelvis negative. Patient reports pain improved. Will send patient home with a short course of pain medication. He will follow back up with his primary care provider. ED return precautions discussed, patient verbalized understanding and agreement with same. - Vital Signs Vital signs: Temp Pulse Resp BP Pulse Ox 98.7 F 68 16 128/74 H 98 07/30/20 05:24 07/30/20 05:24 07/30/20 05:24 07/30/20 05:24 07/30/20 05:24 - Laboratory Results Result Diagrams: 07/29/20 21:59 07/29/20 21:59 Laboratory Results Interpreted: 07/29/20 07/29/20 07/29/20 21:59 21:59 22:32 RBC 3.93 L Hgb 10.6 L Hct 32.5 L RDW 17.0 H Lymph % (Auto) 12.1 L Seg Neutrophils % 78.6 H Potassium 3.1 L BUN 6 L Glucose 127 H Direct Bilirubin 0.5 H AST 73 H Alkaline Phosphatase 155 H Lipase 385.3 H Urine Ketones TRACE H Urine Urobilinogen 2.0 H Critical Laboratory Results Reviewed: No Critical Results - Radiology Results Critical Radiology Results Reviewed: No Critical Results Discharge - Discharge Clinical Impression: Abdominal pain Qualifiers: Abdominal location: unspecified location Qualified Code(s): R10.9 - Unspecified abdominal pain Condition: Stable Disposition: HOME, SELF-CARE Additional Instructions: Please follow up with your primary care provider. Call them today for a follow- up. Avoid alcohol consumption. Return if any new or worsening symptoms to include persistent abdominal pain, vomiting, you are unable to hold a new medication or you develop a fever. Prescriptions: Oxycodone HCl/Acetaminophen [Percocet 5-325 mg Tablet] 0.5 - 1 tab PO Q6HP PRN #10 tablet PRN Reason: For Pain Dicyclomine HCl [Bentyl 20 mg Tablet] 20 mg PO QID #40 tablet Referrals: ADAM SZYMANSKI MD [NO LOCAL MD] - Follow up as needed
[2020-07-29] MEDS ORDERED: MORPHINE SULFATE 10 MG/ML INJ IV ONE (21:46)
[2020-07-29 22:25] LABS: ABSOLUTE LYMPHOCYTES (AUTO) 0.5 10^3/uL (0.5-4.7); ABSOLUTE MONOCYTES (AUTO) 0.4 10^3/uL (0.1-1.4); ABSOLUTE NEUT (AUTO) 3.3 10^3/uL (1.7-8.2); BASOPHILS % (AUTO) 0.4 % (0-2); EOSINOPHILS % (AUTO) 0.6 % (0-6); HEMATOCRIT 32.5 % (37.9-51.0); HEMOGLOBIN 10.6 g/dL (13.5-17.0); LYMPHOCYTES % (AUTO) 12.1 % (13-45); MEAN CORPUSCULAR HEMOGLOBIN 27.1 pg (27.0-33.4); MEAN CORPUSCULAR HGB CONC 32.7 g/dL (32.0-36.0); MEAN CORPUSCULAR VOLUME 83 fl (80-97); MONOCYTES % (AUTO) 8.3 % (3-13); PLATELET COUNT 216 10^3/uL (150-450); RED BLOOD COUNT 3.93 10^6/uL (4.35-5.55); SEGMENTED NEUTROPHILS % (AUTO) 78.6 % (42-78); TOTAL CELLS COUNTED % (AUTO) 100 %; WHITE BLOOD COUNT 4.2 10^3/uL (4.0-10.5)
[2020-07-29 22:41] LABS: ALBUMIN 3.7 g/dL (3.5-5.0); ALKALINE PHOSPHATASE 155 U/L (38-126); ANION GAP 7 (5-19); ASPARTATE AMINO TRANSFERASE 73 U/L (17-59); BILIRUBIN,DIRECT 0.5 mg/dL (0.0-0.4); BILIRUBIN,TOTAL 0.9 mg/dL (0.2-1.3); BLOOD UREA NITROGEN 6 mg/dL (7-20); CALCIUM 9.1 mg/dL (8.4-10.2); CARBON DIOXIDE 27 mmol/L (22-30); CHLORIDE 104 mmol/L (98-107); GLUCOSE 127 mg/dL (75-110); TOTAL PROTEIN 7.2 g/dL (6.3-8.2)
[2020-07-29 22:43] LABS: POTASSIUM 3.1 mmol/L (3.6-5.0)
[2020-07-29 22:46] LABS: APPEARANCE,URINE CLEAR; BILIRUBIN,URINE NEGATIVE (NEGATIVE); COLOR,URINE YELLOW; GLUCOSE, URINE NEGATIVE (NEGATIVE); KETONES,URINE TRACE mg/dL (NEGATIVE); LEUKOCYTE ESTERASE,URINE NEGATIVE (NEGATIVE); NITRITE,URINE NEGATIVE (NEGATIVE); PROTEIN,URINE NEGATIVE (NEGATIVE); URINE SPECIFIC GRAVITY 1.004
--- NOTE | 2020-07-30 02:31 | RADIOLOGY REPORT (SQ) ---
CLINICAL HISTORY: HX ETOH INDUCED PANCREATITIS, C/O SHARP EPI-GASTRIC PAIN. COMPARISON: 02/12/2020. TECHNIQUE: CT ABDOMEN PELVIS WITHOUT IV CONTRAST on 07/30/2020 12:10 AM [employer] CLERK This exam was performed according to our departmental dose-optimization program, which includes automated exposure control, adjustment of the mA and/or kV according to patient size and/or use of iterative reconstruction technique. FINDINGS: There is left basal atelectasis. Abdomen: The liver is normal in appearance. There is no biliary dilatation. There is a moderate hiatal hernia. Cholecystectomy was performed. Spleen is normal in size. There are calcifications throughout the pancreatic head with mild inflammation surrounding the pancreas diffusely. The adrenal glands and kidneys are unremarkable. Abdominal aorta is normal in course and caliber without aneurysm. There is no free air. There is no retroperitoneal adenopathy. Pelvis: There is no bowel obstruction. Urinary bladder is unremarkable. There is trace free pelvic fluid. Appendix is normal. Skeleton: There are no acute osseous findings. No suspicious bony lesions. IMPRESSION: Suspect acute on chronic pancreatitis.
[2020-07-30] MEDS ORDERED: MORPHINE SULFATE 10 MG/ML INJ IV ONE (03:38)
[2020-07-30] MEDS ORDERED: DIPHENHYDRAMINE HCL 50 MG CAPSULE PO ONE (04:36)
[2020-07-30] MEDS ORDERED: DICYCLOMINE HCL INJ 20 MG/2 ML AMPULE IM ONE (04:36)
[2020-07-30 05:27] VITALS: BP 128/74
== END 2020-07-30 05:24 | disposition home or self-care (01) ==
LOC: ER 21:14
DX: R10.84 Generalized abdominal pain (principal); R11.0 Nausea; F17.200 Nicotine dependence, unspecified, uncomplicated; I11.0 Hypertensive heart disease with heart failure; I50.9 Heart failure, unspecified; E78.00 Pure hypercholesterolemia, unspecified; E11.9 Type 2 diabetes mellitus without complications
CPT/HCPCS: 96376; 99285; 96372; 96361; 96374; 36415; 83690; 85025; 80053; 81001; 74176; J0500; J2270 ×2; J7030